=== PATIENT | female | born 1960 | race Caucasian/White ===

== ENCOUNTER 2020-07-22 09:21 | Inpatient (IN) ==
[2020-07-22] MEDS ORDERED: TUSSIONEX PENNKINETIC SUSP PO PRN (11:05)
[2020-07-22] MEDS ORDERED: NS 1/2 1000 ML IV 1,000 ML IV SCH (11:05)
[2020-07-22 11:32] LABS: ABG BASE EXCESS 3.2 mmol/L (-2.0-2.0); ABG HCO3 26.9 mmol/L (22-26)
--- NOTE | 2020-07-22 11:39 | RAD ---
HISTORYPNEUMONIA, COVIDSTUDYCHEST x-ray, 1 VIEWCOMPARISONNoneFINDINGSProminent bilateral lung infiltrates are seen, right greater than left. Findings are consistent with COVID-19 pneumonia. Heart is probably normal in size. No pneumothorax or pleural effusion is seen.IMPRESSIONLikely prominent bilateral pneumonia that could be from COVID-19 infection.Electronically signed by: Jamaal Hutchison (Jul 22, 2020 11:36:59)
[2020-07-22 12:22] LABS: BASOPHILS % (AUTO) 0.1 % (0.2-1.0); HEMATOCRIT 36.6 % (36.0-47.0); HEMOGLOBIN 12.5 g/dL (12.0-16.0); LYMPHOCYTES # (AUTO) 0.7 X10^3/uL (1.3-2.9); LYMPHOCYTES % (AUTO) 9.8 % (21.0-51.0); MEAN CORPUSCULAR HEMOGLOBIN 32.4 pg (27.0-34.0); MEAN CORPUSCULAR HGB CONC 34.1 g/dL (33.0-35.0); MEAN CORPUSCULAR VOLUME 94.8 fL (80.0-100.0); MEAN PLATELET VOLUME 7.1 fL (7.4-11.0); MONOCYTES # (AUTO) 0.3 x10^3/uL (0.3-0.8); MONOCYTES % (AUTO) 4.9 % (0.0-13.0); NEUTROPHILS # (AUTO) 5.7 x10^3/uL (2.2-4.8); NEUTROPHILS % (AUTO) 85.2 % (42.0-75.0); PLATELET COUNT 184 X10^3/uL (150.0-450.0); RED BLOOD COUNT 3.86 X10^6/uL (3.5-5.4); RED CELL DISTRIBUTION WIDTH 12.6 % (11.6-16.5); WHITE BLOOD COUNT 6.7 X10^3/uL (3.6-10.0)
[2020-07-22] MEDS ORDERED: NS 1/2 1000 ML IV 1,000 ML IV ONE (12:22)
[2020-07-22] MEDS ORDERED: REMDESIVIR 200 MG in NS 250 ML IV 250 ML IV NR (12:22)
[2020-07-22] MEDS: LEVAQUIN PREMIX IV 500 MG 500 MG/100 ML BAG IV SCH (12:26)
[2020-07-22] MEDS: VSL#3 PO SCH (12:27)
[2020-07-22] MEDS: ROBITUSSIN DM PO SCH ×4 (12:27→21:05)
[2020-07-22] MEDS: TYLENOL 325 MG TAB PO PRN (12:28)
[2020-07-22] MEDS: TESSALON PERLES PO SCH ×3 (12:28→21:05)
[2020-07-22 12:42] LABS: ALANINE AMINOTRANSFERASE 79 Units/L (12-78); ALBUMIN 2.7 g/dL (3.4-5.0); ALKALINE PHOSPHATASE 78 Units/L (46-116); ASPARTATE AMINO TRANSFERASE 54 Units/L (15-37); BLOOD UREA NITROGEN 8 mg/dL (7-18); CALCIUM 8.6 mg/dL (8.5-10.1); CHLORIDE 95 mmol/L (98-107); CKMB % 0.5 % (<4); COR CA(FOR HYPOALB) 9.6 mg/dL (8.5-10.1); COR NA(FOR HYPERGLY) 131 mmol/L (136-145); CREATINE KINASE 330 Units/L (26-192); CREATINE KINASE MB 1.6 ng/mL (0-4.0); SODIUM 129 mmol/L (136-145); TOTAL PROTEIN 6.5 g/dL (6.4-8.2); TROPONIN I 0.04 ng/mL (0-1.5); eGFR NON BLACK RACES > 60 (>60)
[2020-07-22 12:47] LABS: CARBON DIOXIDE 27.8 mmol/L (21-32)
[2020-07-22] MEDS ORDERED: K-DUR TAB 20 MEQ PO PRN (12:53)
[2020-07-22] MEDS ORDERED: MAGNESIUM SULFATE 1 GRAM/100 mL PREMIX 1 GM/100 ML BAG IV PRN (12:53)
[2020-07-22] MEDS ORDERED: POTASSIUM CHL 60 MEQ/NS 0.45% 500 ML IV PRN (12:53)
[2020-07-22] MEDS ORDERED: POTASSIUM CHLORIDE LIQ 20 MEQ UDC PO PRN (12:53)
[2020-07-22] MEDS ORDERED: MICRO K EXTEN CAP 10 MEQ PO PRN (12:53)
[2020-07-22] MEDS ORDERED: POTASSIUM CHL 40 MEQ/NS 0.45% 500 ML IV PRN (12:53)
[2020-07-22] MEDS ORDERED: KLOR-CON PO PRN (12:53)
[2020-07-22] MEDS ORDERED: K-DUR TAB 20 MEQ PO ONE (13:17)
[2020-07-22] MEDS: LOVENOX INJ 80 MG SYR SC SCH ×2 (13:22→21:05)
[2020-07-22] MEDS: PROTONIX INJ 40 MG VIAL IVP SCH ×2 (13:22→21:05)
[2020-07-22] MEDS ORDERED: NS 100 ML IV 100 ML IV ONE (13:23)
[2020-07-22] MEDS: SOLU-Medrol 40 MG VIAL IVP SCH ×2 (13:28→21:05)
[2020-07-22] MEDS: PULMICORT NEB TX 0.5 MG NEB SCH ×2 (13:39→21:46)
[2020-07-22] MEDS: DUONEB 0.5 MG/3 MG (3 mL) NEB SCH ×4 (13:39→21:46)
[2020-07-22 14:00] LABS: ABG ALLEN TEST POS; ABG BASE EXCESS 3.7 mmol/L (-2.0-2.0); ABG HCO3 27.7 mmol/L (22-26)
[2020-07-22] MEDS: PEPCID 20 MG IV PREMIX* 20 MG/50 ML BAG IV SCH ×2 (14:10→21:05)
--- NOTE | 2020-07-22 14:51 | RAD ---
HISTORYCentral lineSTUDYCHEST, 1 [id number]/17/2020FINDINGSRight IJ central venous catheter terminates in the region of the cavoatrial junction. There is no pneumothorax. No significant interval change an bilateral airspace disease. No sizable pleural effusion.IMPRESSIONSatisfactory position of right IJ central venous catheter without pneumothorax or other change in cardiopulmonary findings.Electronically signed by: Johnny Fulton (Jul 22, 2020 14:49:29)
--- NOTE | 2020-07-22 15:26 | CT ---
HISTORYELEVATED D-DIMER, COVID 19 positiveSTUDYCTA CHEST with IV contrastCOMPARISONX-ray 07/22/2020TECHNIQUEMultiple axial images of the chest were obtained from the thoracic inlet to the upper abdomen after the administration of IV contrast. 75 cc Omnipaque 350 IV contrast. 3D reconstructions utilizing axial MIPS imaging was performed and reviewed. Dose reduction techniques including Automated Exposure Control (AEC) and adjustment of mA and kV were utilized.FINDINGSProminent diffuse interstitial and ground-glass infiltrates are seen. Findings are concerning for prominent COVID-19 pneumonia. Mild alveolar consolidation is seen in the lower lungs associated with these infiltrates.There may be a degree of pulmonary edema contributing to the lung densities as there is mild cardiomegaly and pulmonary venous congestion with tiny pleural effusions. Moderate-sized hiatus hernia is seen. Mediastinal and hilar lymphadenopathy is probably reactive, but a few of the lymph nodes measure greater than 1 cm in the short axis in the sub carinal and precarinal regions.No pericardial effusion. Thoracic aorta is normal in size without evidence of dissection. No pulmonary embolus is seen.IMPRESSIONLikely prominent bilateral pneumonia may be from COVID-19 infection.Pulmonary edema may contribute to some of the lung densities as there is probable mild CHF with tiny pleural effusions.Probably reactive mediastinal and hilar lymphadenopathy. Consider follow-up CT in a few months time to assure resolution.Electronically signed by: Jamaal Hutchison (Jul 22, 2020 15:25:11)
[2020-07-22] MEDS ORDERED: LASIX IVP ONE (15:43)
[2020-07-22] MEDS ORDERED: ATIVAN INJ 2 MG VIAL ONE (15:47)
[2020-07-22] MEDS ORDERED: LASIX ONE (15:47)
[2020-07-22] MEDS: ATIVAN INJ 2 MG VIAL IVP PRN (15:48)
[2020-07-22] MEDS: NS 1000 ML 1,000 ML IV SCH (15:50)
[2020-07-23] MEDS: ATIVAN INJ 2 MG VIAL IVP PRN ×3 (00:15→22:00)
[2020-07-23 05:01] LABS: ABG ALLEN TEST POS; ABG BASE EXCESS 3.3 mmol/L (-2.0-2.0); ABG HCO3 29.5 mmol/L (22-26)
[2020-07-23 05:26] LABS: BASOPHILS % (AUTO) 0.2 % (0.2-1.0); HEMATOCRIT 39.1 % (36.0-47.0); HEMOGLOBIN 13.4 g/dL (12.0-16.0); LYMPHOCYTES # (AUTO) 0.7 X10^3/uL (1.3-2.9); LYMPHOCYTES % (AUTO) 9.3 % (21.0-51.0); MEAN CORPUSCULAR HEMOGLOBIN 32.6 pg (27.0-34.0); MEAN CORPUSCULAR HGB CONC 34.2 g/dL (33.0-35.0); MEAN CORPUSCULAR VOLUME 95.2 fL (80.0-100.0); MEAN PLATELET VOLUME 7.4 fL (7.4-11.0); MONOCYTES # (AUTO) 0.3 x10^3/uL (0.3-0.8); MONOCYTES % (AUTO) 3.7 % (0.0-13.0); NEUTROPHILS # (AUTO) 6.5 x10^3/uL (2.2-4.8); NEUTROPHILS % (AUTO) 86.8 % (42.0-75.0); PLATELET COUNT 176 X10^3/uL (150.0-450.0); RED BLOOD COUNT 4.11 X10^6/uL (3.5-5.4); RED CELL DISTRIBUTION WIDTH 12.7 % (11.6-16.5); WHITE BLOOD COUNT 7.5 X10^3/uL (3.6-10.0)
[2020-07-23 05:44] LABS: ALBUMIN 2.6 g/dL (3.4-5.0); ALKALINE PHOSPHATASE 87 Units/L (46-116); SODIUM 134 mmol/L (136-145); eGFR NON BLACK RACES > 60 (>60)
[2020-07-23] MEDS: SOLU-Medrol 40 MG VIAL IVP SCH ×3 (05:45→21:01)
[2020-07-23] MEDS: NS 1000 ML 1,000 ML IV SCH ×3 (05:45→20:58)
[2020-07-23] MEDS: TESSALON PERLES PO SCH ×3 (05:45→21:01)
[2020-07-23 06:33] LABS: ALANINE AMINOTRANSFERASE 79 Units/L (12-78); ASPARTATE AMINO TRANSFERASE 63 Units/L (15-37); BLOOD UREA NITROGEN 12 mg/dL (7-18); CALCIUM 8.8 mg/dL (8.5-10.1); CARBON DIOXIDE 23.5 mmol/L (21-32); CHLORIDE 97 mmol/L (98-107); COR CA(FOR HYPOALB) 9.9 mg/dL (8.5-10.1); COR NA(FOR HYPERGLY) 138 mmol/L (136-145); CREATININE 0.69 mg/dL (0.55-1.02); TOTAL PROTEIN 6.5 g/dL (6.4-8.2)
--- NOTE | 2020-07-23 06:38 | RAD ---
HISTORYCOVID, SOBSTUDYCHEST, 1 [id number]/17/2020.TECHNIQUEAP view of the chestFINDINGSRight IJ central line in stable position. The cardiac and mediastinal contours appear normal. Stable bilateral airspace and interstitial opacities. No definite pleural effusion or pneumothorax.IMPRESSIONNo significant change.Electronically signed by: Bipin Moore (Jul 23, 2020 06:36:33)
[2020-07-23] MEDS: REMDESIVIR 100 MG in NS 250 ML IV 250 ML IV SCH (09:27)
[2020-07-23] MEDS: DUONEB 0.5 MG/3 MG (3 mL) NEB SCH ×4 (09:30→21:39)
[2020-07-23] MEDS: PULMICORT NEB TX 0.5 MG NEB SCH ×2 (09:30→21:39)
[2020-07-23] MEDS: ROBITUSSIN DM PO SCH ×4 (09:56→21:01)
[2020-07-23] MEDS: LOVENOX INJ 80 MG SYR SC SCH (09:56)
[2020-07-23] MEDS: PROTONIX INJ 40 MG VIAL IVP SCH ×2 (09:57→21:01)
[2020-07-23] MEDS: PEPCID 20 MG IV PREMIX* 20 MG/50 ML BAG IV SCH ×2 (10:37→21:00)
[2020-07-23] MEDS: LEVAQUIN PREMIX IV 500 MG 500 MG/100 ML BAG IV SCH (11:24)
[2020-07-23] MEDS: VSL#3 PO SCH (11:54)
--- NOTE | 2020-07-23 12:34 | DR.H&P ---
H&P - History & Physical for Day of: H&P Date: 07/22/20 - Chief Complaint Chief Complaint: COUGH, SOB, FEVER, WEAKNESS, COVID POSITIVE - History of Present Illness History of Present Illness: IS A 60 YEAR OLD PATIENT OF OURS. SHE PRESE NTED TO THE OFFICE WITH REPORTS OF COUGH, SHORTNESS OF BREATH, FEVER, AND WEAKNESS. HER SYMPTOMS STARTED ABOUT A WEEK AGO. SHE WAS TESTED FOR COVID-19 AT THAT TIME AND WAS NOTED TO BE POSITIVE. SHE WAS STARTED ON AZITHROMYCIN 500MG PO BID, TESSALON PERLES 100MG PO TID, PLAQUENIL 200MG PO BID X 5 DAYS, A MEDROL DOSEPAK ON 07/15/20. SHE REPORTS PROGRESSIVE WORSENING OF SYMPTOMS DESPITE COMPLIANCE WITH HER MEDICATIONS. AUSCULTATION OF LUNG JACOBO REVEALED SCATTERED WHEEZING. SHE WAS ADMITTED TO THE HOSPITAL FOR FURTHER EVALUATION AND TREATMENT. ON ARRIVAL TO THE HOSPTIAL, VITALS WERE 101.5-89-23-73%RA-141/61. LABS WERE OBTAINED. ABNORMAL LAB VALUES INCLUDE THE FOLLOWING: D-DIMER 1.22, SODIUM 129, CHLORIDE 95, GLUCOSE 174, FERRITIN 462, AST 54, ALT 79, CREATINE KINASE 330, CRP 102.50, BNP 129, ALBUMIN 2.7. COVID-19 POSITIVE. AN ABG WAS OBTAINED AND REVEALED: PH 7.470, PC02 37, P02 31, HC03 26.9, 02 SAT 65, BASE EXCESS 3.2, FI02 21.0. BLOOD AND SPUTUM CULTURES WERE SET UP. A CHEST XRAY WAS OBTAINED AND REVEALED: Likely prominent bilateral pneumonia that could be from COVID-19 infection. A CHEST CTA WAS OBTAINED AND REVEALED: Likely prominent bilateral pneumonia may be from COVID-19 infection. Pulmonary edema may contribute to some of the lung densities as there is probable mild CHF with tiny pleural effusions. Probably reactive mediastinal and hilar lymphadenopathy. EKG REVEALED: SINUS RHYTHM WITH HR 82. SHE WAS PLACED ON HEATED HIGH FLOW OXYGEN. HER ABG WAS REPEATED AFTER BEING ON OXYGEN FOR TWO HOURS. 13:55 ABG REVEALED: PH 7.460, PC02 39, P02 52, HC03 27.7, 02 SAT 88, BASE EXCESS 3.7, FI02 89.0. SHE WAS STARTED ON NS AT 75 ML/HR, REMDESIVIR 100MG IV DAILY, LEVAQUIN 500MG IV DAILY, SOLU-MEDROL 80MG IV Q8H, ATIVAN 0.5MGIV Q8H PRN, ROBITUSSIN DM 10 ML PO QID, PEPCID 20MG IV BID, PROTONIX 40MG IV BID, LOVENOX 80MG SC BID, DUONEBS QID, PULMICORT NEBS BID, TUSSIONEX 5ML PO Q12H PRN, AND HER HOME MEDICATIONS WERE RESUMED. WE PLAN TO FOLLOW UP WITH AM LABS, ABG, CHEST XRAY, AND CONTINUE TO MONITOR. - Past Medical History Past Medical History: Diabetes, GERD Additional Medical History: HERNIA - Past Surgical History Surgical History: Appendectomy, Cholecystectomy, Hysterectomy, Other - Family History Family Medical History: Diabetes Mellitus, Cancer, PA, Hypertension - Social History Does patient currently use any type of tobacco product: No Have you used tobacco products in the last 12 months: No Type of Tobacco Use: None Does any household member use tobacco: No Alcohol Use: None Drug Use: None - Medications Home Medications: codeine Allergy (Verified 07/22/20 11:49) meperidine [From Demerol] Allergy (Verified 07/22/20 11:49) Tetanus Vaccines and Toxoid Allergy (Verified 07/22/20 11:49) CONTINUE taking the following medications albuterol sulfate [Ventolin HFA] 90 mcg INHALATION TID 07/22/20 [History] alprazolam [Xanax] 0.25 mg PO DAILY PRN 07/22/20 [History] azithromycin 500 mg PO DAILY 07/22/20 [History] benzonatate 100 mg PO TID PRN 07/22/20 [History] ciprofloxacin-dexamethasone 4 drp OTIC (EAR) BID 07/22/20 [History] hydroxychloroquine 200 mg PO BID 07/22/20 [History] levothyroxine [Synthroid] 75 mcg PO DAILY 07/22/20 [History] methylprednisolone 4 mg PO . DIRECTED 07/22/20 [History] - Review of Systems Constitutional: Fever, Chills, Weakness Eyes: No Symptoms Reported ENT: No Symptoms Reported Respiratory: No Symptoms Reported, See HPI, Cough, Shortness of Breath, SOB with Excertion, Wheezing Cardiovascular: No Symptoms Reported Gastrointestinal: No Symptoms Reported Genitourinary: No Symptoms Reported Musculoskeletal: No Symptoms Reported Skin: No Symptoms Reported Neurological: Weakness - Physical Exam Vital Signs: Temperature 97.9 F Pulse Rate [Right Brachial] 77 Pulse Rate 76 Respiratory Rate 26 Blood Pressure [Right Arm] 169/76 O2 Sat by Pulse Oximetry 90 Oriented: Normal Eyes: Normal Ear: Normal Nose: Normal Throat: Normal Respiratory: Wheezes Throughout Cardiovascular: Normal : Normal Auscultation: Bowel Sounds: Normal Palpation: Normal Tenderness: Normal Skin: Normal Musculoskeletal: Normal Psychiatric: Normal Mood Description: Anxious Affect: Anxious Speech Pattern: Clear - Assessment/Plan (1) Pneumonia due to 2019 novel coronavirus Status: Acute Plan: NS AT 75 ML/HR, REMDESIVIR 100MG IV DAILY, LEVAQUIN 500MG IV DAILY, SOLU- MEDROL 80MG IV Q8H, ATIVAN 0.5MGIV Q8H PRN, ROBITUSSIN DM 10 ML PO QID, PEPCID 20MG IV BID, PROTONIX 40MG IV BID, LOVENOX 80MG SC BID, DUONEBS QID, PULMICORT NEBS BID, TUSSIONEX 5ML PO Q12H PRN, AND HER HOME MEDICATIONS WERE RESUMED (2) Hypoxia Status: Acute - Allergies Allergies/Adverse Reactions: Allergies Allergy/AdvReac Type Severity Reaction Status Date / Time codeine Allergy Verified 07/22/20 11:49 meperidine [From Demerol] Allergy Verified 07/22/20 11:49 Tetanus Vaccines and Toxoid Allergy Verified 07/22/20 11:49
--- NOTE | 2020-07-23 12:54 | DR.UPDATE ---
H&P Update History and Physical Update: History and Physical reviewed and patient examined. Changes noted: NO Yes with the following:will place central line H&P Reviewed: Yes Patient was examined?: Yes Procedures (ALL) - Central Line Placement PCM.CLCO: written consent Time out performed: Yes Patient placed pm monitor/pulse ox: Yes MD prep: mask, gown, gloves, other Centrial line prep: chlorhexidine scrub, sterile drapes applied Local anesthsia used: lidocane 1% Ultrasound used for placement: Yes (right ij id'd via u/s and cannulation visualized) Central line lumen ininserted: triple Post procedure: sutured in place, good blood return, all ports aspirated, flushed,capped, sterile dressing applied Post procedure xray: tip oc catheter in good position, no pneumothorax seen Patient tolerated procedure: Yes Complications: none
[2020-07-23] MEDS: ZOFRAN INJ 4 MG VIAL IVP PRN (17:32)
[2020-07-23] MEDS ORDERED: LANOXIN INJ IVP SCH (18:00)
[2020-07-23 19:34] VITALS: BMI 33.6
[2020-07-23] MEDS: LOVENOX INJ 30 MG SYR SC SCH (20:59)
[2020-07-24 05:36] LABS: ALANINE AMINOTRANSFERASE 63 Units/L (12-78); ALBUMIN 2.4 g/dL (3.4-5.0); ALKALINE PHOSPHATASE 74 Units/L (46-116); ASPARTATE AMINO TRANSFERASE 45 Units/L (15-37); BLOOD UREA NITROGEN 16 mg/dL (7-18); CALCIUM 8.9 mg/dL (8.5-10.1); CARBON DIOXIDE 29.7 mmol/L (21-32); CHLORIDE 103 mmol/L (98-107); COR CA(FOR HYPOALB) 10.2 mg/dL (8.5-10.1); COR NA(FOR HYPERGLY) 142 mmol/L (136-145); CREATININE 0.66 mg/dL (0.55-1.02); SODIUM 139 mmol/L (136-145); TOTAL PROTEIN 5.9 g/dL (6.4-8.2); eGFR NON BLACK RACES > 60 (>60)
[2020-07-24 06:01] LABS: BASOPHILS % (AUTO) 0.1 % (0.2-1.0); HEMATOCRIT 35.6 % (36.0-47.0); HEMOGLOBIN 11.8 g/dL (12.0-16.0); LYMPHOCYTES % (AUTO) 8.3 % (21.0-51.0); MEAN CORPUSCULAR HEMOGLOBIN 32.5 pg (27.0-34.0); MEAN CORPUSCULAR HGB CONC 33.2 g/dL (33.0-35.0); MEAN CORPUSCULAR VOLUME 97.8 fL (80.0-100.0); MEAN PLATELET VOLUME 7.8 fL (7.4-11.0); MONOCYTES # (AUTO) 0.8 x10^3/uL (0.3-0.8); MONOCYTES % (AUTO) 6.2 % (0.0-13.0); NEUTROPHILS # (AUTO) 10.8 x10^3/uL (2.2-4.8); NEUTROPHILS % (AUTO) 85.4 % (42.0-75.0); PLATELET COUNT 234 X10^3/uL (150.0-450.0); RED BLOOD COUNT 3.64 X10^6/uL (3.5-5.4); RED CELL DISTRIBUTION WIDTH 12.7 % (11.6-16.5); WHITE BLOOD COUNT 12.6 X10^3/uL (3.6-10.0)
--- NOTE | 2020-07-24 06:16 | RAD ---
HISTORYSOB, covidSTUDYAP [id number]/18/2020FINDINGSHeart size is probably unchanged although cardiac margins are partly obscured by extensive adjacent airspace involvement in each lung. Extent and distribution of disease in the right lung is similar. There is increasing opacification at the left base, however. Stable position of right IJ line extending to the right atrium.IMPRESSIONPersistent bilateral pulmonary infiltrates, increasing in the left lower lobe since 1 day prior.Electronically signed by: JOSE CUEVA (Jul 24, 2020 06:14:57)
[2020-07-24 06:19] LABS: ABG BASE EXCESS 5.8 mmol/L (-2.0-2.0)
[2020-07-24 06:21] LABS: ABG ALLEN TEST POS; ABG HCO3 32.1 mmol/L (22-26)
[2020-07-24] MEDS: SOLU-Medrol 40 MG VIAL IVP SCH ×3 (06:30→21:03)
[2020-07-24] MEDS: TESSALON PERLES PO SCH ×3 (06:30→21:00)
[2020-07-24] MEDS: ATIVAN INJ 2 MG VIAL IVP PRN ×2 (07:18→14:41)
[2020-07-24] MEDS: LOVENOX INJ 30 MG SYR SC SCH (08:23)
[2020-07-24] MEDS: PROTONIX INJ 40 MG VIAL IVP SCH ×2 (08:23→21:03)
[2020-07-24] MEDS: PEPCID 20 MG IV PREMIX* 20 MG/50 ML BAG IV SCH ×2 (08:25→21:02)
[2020-07-24] MEDS: ROBITUSSIN DM PO SCH ×4 (08:28→20:59)
[2020-07-24] MEDS: VSL#3 PO SCH (08:29)
[2020-07-24] MEDS: REMDESIVIR 100 MG in NS 250 ML IV 250 ML IV SCH (08:43)
[2020-07-24] MEDS: DUONEB 0.5 MG/3 MG (3 mL) NEB SCH ×4 (09:26→21:42)
[2020-07-24] MEDS: PULMICORT NEB TX 0.5 MG NEB SCH ×2 (09:26→21:42)
[2020-07-24] MEDS: LEVAQUIN PREMIX IV 500 MG 500 MG/100 ML BAG IV SCH (09:52)
[2020-07-24] MEDS: NS 1000 ML 1,000 ML IV SCH ×2 (09:53→13:40)
[2020-07-24] MEDS: ZITHROMAX INJ 500 MG VIAL 500 MG in NS 250 ML IV 250 ML IV SCH (14:12)
[2020-07-24] MEDS ORDERED: ATIVAN INJ 2 MG VIAL ONE (14:38)
[2020-07-24] MEDS: ZOSYN VIAL 4.5 GRAMS 4.5 G in NS 100 ML IV + SPIKE MINIBAG* 100 ML IV SCH ×2 (16:30→21:02)
[2020-07-24] MEDS: ZOFRAN INJ 4 MG VIAL IVP PRN (18:00)
[2020-07-24] MEDS ORDERED: PHENERGAN INJ 25 MG IM ONE (18:22)
[2020-07-24] MEDS ORDERED: REGLAN INJ 10 MG VIAL ONE (18:25)
[2020-07-24] MEDS ORDERED: ZOFRAN INJ 4 MG VIAL ONE (18:25)
[2020-07-24] MEDS ORDERED: REGLAN INJ 10 MG VIAL IVP ONE (18:28)
[2020-07-24] MEDS ORDERED: ZOFRAN INJ 4 MG VIAL IVP PRN (18:29)
[2020-07-24 18:35] LABS: ABG BASE EXCESS 3.1 mmol/L (-2.0-2.0)
[2020-07-24 18:36] LABS: ABG ALLEN TEST POS; ABG HCO3 31.3 mmol/L (22-26)
[2020-07-24] MEDS ORDERED: KETALAR ONE (18:40)
[2020-07-24] MEDS ORDERED: VERSED ONE (18:40)
[2020-07-24] MEDS ORDERED: DIPRIVAN VIAL ONE (18:40)
[2020-07-24] MEDS ORDERED: QUELICIN (OR ANECTINE) ONE (18:40)
[2020-07-24] MEDS ORDERED: NS 500 ML IV 500 ML IV ONE (18:44)
[2020-07-24] MEDS ORDERED: LASIX IVP ONE ×2 (18:51→18:52)
[2020-07-24] MEDS ORDERED: DIPRIVAN PREMIX 1 GRAM IV 1,000 MG/100 ML VIAL ONE (19:05)
[2020-07-24] MEDS: DIPRIVAN PREMIX 1 GRAM IV 1,000 MG/100 ML VIAL IV PRN (19:11)
--- NOTE | 2020-07-24 19:57 | RAD ---
HISTORYverify placement ET tubeSTUDYCHEST, 1 [id number]/19/2020, the study from 2 hours agoFINDINGSThe endotracheal tube is anatomic in position in the trachea.Right jugular central venous catheter is in the expected location of the superior cavoatrial junction. EKG leads are noted.Diffuse bilateral opacity in the lungs is not changed. This is compatible with pneumonia as seen on the chest CT 07/22/2020. No pneumothorax or pleural effusion.Heart size is normal.Bones are unremarkable.IMPRESSION1. Uncomplicated intubationElectronically signed by: Harsh Hidalgo (Jul 24, 2020 19:55:48)
--- NOTE | 2020-07-24 20:42 | DR.UPDATE ---
H&P Update History and Physical Update: History and Physical reviewed and patient examined. Changes noted: NO Yes with the following:will intubate and place arterial line for monitoring/frequent arterial sampling H&P Reviewed: Yes Patient was examined?: Yes Procedures (ALL) - Arterial Line Consent obtained: verbal consent Time out performed: Yes Size(gauge): 20 Technique used: guided wire technique Post-procedure: dry sterile dressing placed Patient tolerated procedure: Yes Site: Left, radial - Intubation Time out performed: Yes Sedative: ketamine (50mg, and propofol 50mg) paralytic: succinylchline (100mg, then vecuronium 10mg after return of spontaneous respirations) Laryngoscope: fiber optic video scope (glidescope 3) ET tube size: 7.5 Tube secured depth: 21 Tube secured location: teeth Tube placement confirmation: visualized tube passing through cords, equal breath sounds bilaterally, no breath sounds over epigastrium, comfirmation by capnometer Patient tolerated procedure: Yes Intubation complications: none
[2020-07-24 21:19] LABS: BILIRUBIN,URINE NEGATIVE (NEGATIVE); BLOOD/HEMOGLOBIN,URINE NEGATIVE (NEGATIVE); GLUCOSE, URINE 3+ (NEGATIVE); KETONES,URINE NEGATIVE (NEGATIVE); LEUKOCYTE ESTERASE ,URINE NEGATIVE (NEGATIVE); NITRITES,URINE NEGATIVE (NEGATIVE); PROTEIN,URINE 2+ (NEGATIVE); UROBILINOGEN,URINE NORMAL (NORMAL)
[2020-07-24 21:40] LABS: APPEARANCE,URINE CLEAR (CLEAR); COLOR,URINE YELLOW (YELLOW)
[2020-07-24 21:41] LABS: BACTERIA,URINE NEGATIVE /HPF (NEGATIVE); MUCUS,URINE FEW /HPF (NEGATIVE); RBC,URINE 0-2 /HPF (0-3); SQUAMOUS EPITHELIAL CELL,UR RARE /HPF (NEGATIVE)
[2020-07-24 21:53] LABS: ABG BASE EXCESS 10.2 mmol/L (-2.0-2.0); ABG HCO3 34.3 mmol/L (22-26)
[2020-07-24] MEDS: LOVENOX INJ 40 MG SYR SC SCH (22:00)
[2020-07-24] MEDS: LACRI-LUBE S.O.P. AFFEYE SCH (22:16)
[2020-07-25] MEDS ORDERED: ARTIFICIAL TEARS DROPS ONE (00:02)
[2020-07-25] MEDS: NS 1000 ML 1,000 ML IV SCH ×3 (02:03→13:50)
[2020-07-25] MEDS: LACRI-LUBE S.O.P. AFFEYE SCH ×3 (02:04→20:52)
[2020-07-25 02:54] LABS: BASOPHILS % (AUTO) 0.2 % (0.2-1.0); HEMATOCRIT 33.5 % (36.0-47.0); HEMOGLOBIN 11.5 g/dL (12.0-16.0); LYMPHOCYTES # (AUTO) 0.7 X10^3/uL (1.3-2.9); LYMPHOCYTES % (AUTO) 4.7 % (21.0-51.0); MEAN CORPUSCULAR HEMOGLOBIN 33.2 pg (27.0-34.0); MEAN CORPUSCULAR HGB CONC 34.4 g/dL (33.0-35.0); MEAN CORPUSCULAR VOLUME 96.6 fL (80.0-100.0); MEAN PLATELET VOLUME 6.9 fL (7.4-11.0); MONOCYTES % (AUTO) 6.1 % (0.0-13.0); PLATELET COUNT 248 X10^3/uL (150.0-450.0); RED BLOOD COUNT 3.47 X10^6/uL (3.5-5.4); RED CELL DISTRIBUTION WIDTH 13.2 % (11.6-16.5); WHITE BLOOD COUNT 15.7 X10^3/uL (3.6-10.0)
[2020-07-25 03:01] LABS: ALANINE AMINOTRANSFERASE 55 Units/L (12-78); ALBUMIN 2.3 g/dL (3.4-5.0); ALKALINE PHOSPHATASE 80 Units/L (46-116); ASPARTATE AMINO TRANSFERASE 43 Units/L (15-37); BLOOD UREA NITROGEN 21 mg/dL (7-18); CALCIUM 8.4 mg/dL (8.5-10.1); CHLORIDE 102 mmol/L (98-107); COR CA(FOR HYPOALB) 9.8 mg/dL (8.5-10.1); COR NA(FOR HYPERGLY) 145 mmol/L (136-145); CREATININE 0.68 mg/dL (0.55-1.02); SODIUM 142 mmol/L (136-145); TOTAL PROTEIN 5.6 g/dL (6.4-8.2); eGFR NON BLACK RACES > 60 (>60)
--- NOTE | 2020-07-25 05:47 | RAD ---
HISTORYSOBSTUDYCHEST, 1 [id number]/19/2020FINDINGSThe trachea is midline. The cardiac silhouette is stable. Improved aeration of the right upper lung zone. Diffuse, near confluent pulmonary opacity of the remainder of the lung whitman, similar to prior exam. ETT and right IJ CVC stable in position.. The bony thorax is unremarkable.IMPRESSIONImproved aeration of the right upper/middle lung zone.Electronically signed by: Valentina Casillas (Jul 25, 2020 05:46:13)
[2020-07-25] MEDS: ZOSYN VIAL 4.5 GRAMS 4.5 G in NS 100 ML IV + SPIKE MINIBAG* 100 ML IV SCH ×4 (06:02→21:01)
[2020-07-25] MEDS: TESSALON PERLES PO SCH (06:02)
[2020-07-25] MEDS: SOLU-Medrol 40 MG VIAL IVP SCH ×3 (06:02→21:00)
[2020-07-25 06:13] LABS: ABG BASE EXCESS 9.1 mmol/L (-2.0-2.0)
[2020-07-25 06:14] LABS: ABG HCO3 32.7 mmol/L (22-26)
[2020-07-25] MEDS: DIPRIVAN PREMIX 1 GRAM IV 1,000 MG/100 ML VIAL IV PRN ×3 (06:30→20:00)
[2020-07-25] MEDS: LOVENOX INJ 40 MG SYR SC SCH ×2 (08:52→20:50)
[2020-07-25] MEDS: PEPCID 20 MG IV PREMIX* 20 MG/50 ML BAG IV SCH ×2 (08:52→20:50)
[2020-07-25] MEDS: PROTONIX INJ 40 MG VIAL IVP SCH ×2 (08:53→20:51)
[2020-07-25] MEDS: ZITHROMAX INJ 500 MG VIAL 500 MG in NS 250 ML IV 250 ML IV SCH (08:53)
[2020-07-25] MEDS: VSL#3 PO SCH (08:53)
[2020-07-25] MEDS: ROBITUSSIN DM PO SCH (08:53)
[2020-07-25] MEDS: REMDESIVIR 100 MG in NS 250 ML IV 250 ML IV SCH (08:53)
[2020-07-25] MEDS ORDERED: DIPRIVAN PREMIX 1 GRAM IV 1,000 MG/100 ML VIAL ONE (09:14)
[2020-07-25] MEDS: DUONEB 0.5 MG/3 MG (3 mL) NEB SCH ×4 (09:58→20:30)
[2020-07-25] MEDS: PULMICORT NEB TX 0.5 MG NEB SCH ×2 (09:58→20:30)
[2020-07-25] MEDS: VERSED 100 MG in NS 100 ML IV 80 ML IV PRN (10:40)
[2020-07-25] MEDS: LASIX IVP SCH (16:50)
[2020-07-26] MEDS: DIPRIVAN PREMIX 1 GRAM IV 1,000 MG/100 ML VIAL IV PRN ×2 (01:27→06:54)
[2020-07-26 04:14] LABS: ABG BASE EXCESS 11.6 mmol/L (-2.0-2.0)
[2020-07-26] MEDS: NS 1000 ML 1,000 ML IV SCH ×2 (05:00→12:29)
[2020-07-26 05:57] LABS: ALANINE AMINOTRANSFERASE 56 Units/L (12-78); ALBUMIN 2.1 g/dL (3.4-5.0); ALKALINE PHOSPHATASE 72 Units/L (46-116); ASPARTATE AMINO TRANSFERASE 38 Units/L (15-37); BLOOD UREA NITROGEN 26 mg/dL (7-18); CALCIUM 8.4 mg/dL (8.5-10.1); CARBON DIOXIDE 29.6 mmol/L (21-32); CHLORIDE 106 mmol/L (98-107); COR CA(FOR HYPOALB) 9.9 mg/dL (8.5-10.1); COR NA(FOR HYPERGLY) 150 mmol/L (136-145); CREATININE 0.73 mg/dL (0.55-1.02); SODIUM 146 mmol/L (136-145); TOTAL PROTEIN 5.4 g/dL (6.4-8.2); eGFR NON BLACK RACES > 60 (>60)
[2020-07-26 06:07] LABS: BASOPHILS % (AUTO) 0.1 % (0.2-1.0); HEMATOCRIT 30.6 % (36.0-47.0); HEMOGLOBIN 10.8 g/dL (12.0-16.0); LYMPHOCYTES # (AUTO) 0.8 X10^3/uL (1.3-2.9); LYMPHOCYTES % (AUTO) 7.6 % (21.0-51.0); MEAN CORPUSCULAR HEMOGLOBIN 38.2 pg (27.0-34.0); MEAN CORPUSCULAR HGB CONC 35.3 g/dL (33.0-35.0); MEAN CORPUSCULAR VOLUME 108.2 fL (80.0-100.0); MEAN PLATELET VOLUME 7.7 fL (7.4-11.0); MONOCYTES # (AUTO) 0.8 x10^3/uL (0.3-0.8); MONOCYTES % (AUTO) 7.7 % (0.0-13.0); NEUTROPHILS # (AUTO) 8.7 x10^3/uL (2.2-4.8); NEUTROPHILS % (AUTO) 84.6 % (42.0-75.0); PLATELET COUNT 230 X10^3/uL (150.0-450.0); RED BLOOD COUNT 2.82 X10^6/uL (3.5-5.4); RED CELL DISTRIBUTION WIDTH 13.2 % (11.6-16.5); WHITE BLOOD COUNT 10.3 X10^3/uL (3.6-10.0)
[2020-07-26] MEDS: SOLU-Medrol 40 MG VIAL IVP SCH ×3 (06:27→21:09)
[2020-07-26] MEDS: ZOSYN VIAL 4.5 GRAMS 4.5 G in NS 100 ML IV + SPIKE MINIBAG* 100 ML IV SCH ×3 (06:27→21:09)
[2020-07-26 06:56] LABS: PLATELET MORPHOLOGY COMMENT NORMAL (NORMAL)
[2020-07-26] MEDS: OFIRMEV IV 1000 MG VIAL 1,000 MG/100 ML VIAL IV PRN ×2 (08:11→21:10)
[2020-07-26] MEDS ORDERED: K-DUR TAB 20 MEQ PO PRN (08:12)
[2020-07-26] MEDS ORDERED: POTASSIUM CHL 40 MEQ/NS 0.45% 500 ML IV PRN (08:12)
[2020-07-26] MEDS ORDERED: POTASSIUM CHL 60 MEQ/NS 0.45% 500 ML IV PRN (08:12)
[2020-07-26] MEDS ORDERED: KLOR-CON PO PRN (08:12)
[2020-07-26] MEDS ORDERED: POTASSIUM CHLORIDE LIQ 20 MEQ UDC PO PRN (08:12)
[2020-07-26] MEDS ORDERED: MICRO K EXTEN CAP 10 MEQ PO PRN (08:12)
--- NOTE | 2020-07-26 08:13 | RAD ---
HISTORYSOB, [id number], 1 [id number]/20/2020FINDINGSTracheostomy tube and right IJ catheter are unchanged. Study is mildl y rotated. Normal heart size. There is again seen multiple ground-glass radiopacities with some confl uent zones in the left perihilar region. The infiltrates appears less denser since prior study; bernard eloy it could be technical. There is no effusion or pneumothorax.IMPRESSIONBilateral ground-glass radi opacities left more than right with persistent some confluent zones in the left perihilar region. The infiltrates are less denser; however it could be technical.Electronically signed by: Chata De Leon (Cassidy 2019 08:11:57)
[2020-07-26] MEDS: ZITHROMAX INJ 500 MG VIAL 500 MG in NS 250 ML IV 250 ML IV SCH (09:00)
[2020-07-26] MEDS: REMDESIVIR 100 MG in NS 250 ML IV 250 ML IV SCH (09:00)
[2020-07-26] MEDS: PULMICORT NEB TX 0.5 MG NEB SCH ×2 (09:28→20:57)
[2020-07-26] MEDS: DUONEB 0.5 MG/3 MG (3 mL) NEB SCH ×4 (09:28→20:57)
[2020-07-26] MEDS: LASIX IVP SCH ×2 (09:40→16:14)
[2020-07-26] MEDS: LOVENOX INJ 40 MG SYR SC SCH ×2 (09:40→21:08)
[2020-07-26] MEDS: LACRI-LUBE S.O.P. AFFEYE SCH ×2 (09:40→21:08)
[2020-07-26] MEDS: PEPCID 20 MG IV PREMIX* 20 MG/50 ML BAG IV SCH ×2 (09:41→21:09)
[2020-07-26] MEDS: PROTONIX INJ 40 MG VIAL IVP SCH ×2 (09:42→21:09)
[2020-07-26] MEDS ORDERED: PHARMACY CONSULT - TPN XX SCH (10:00)
[2020-07-26] MEDS: VSL#3 PO SCH (10:08)
[2020-07-26] MEDS: VERSED 100 MG in NS 100 ML IV 80 ML IV PRN ×2 (10:09→20:01)
[2020-07-26] MEDS: MORPHINE SULFATE PCA 30 MG IVP PRN (10:34)
[2020-07-26] MEDS: DECADRON JET NEB (RESP USE) NEB SCH ×2 (10:37→20:57)
[2020-07-26] MEDS: MUCOMYST 20% 200 MG/ML NEB SCH ×2 (10:37→20:57)
--- NOTE | 2020-07-26 11:09 | PCM.PROG ---
Progress Note - Progress Note for Day of Date of Exam: 07/23/20 - Subjective Subjective: WAS ADMITTED FOR TREATMENT OF PNEUMONIA DUE TO COVID-19, RESPIRATORY DISTRESS, AND HYPOXIA. TODAY, SHE IS ALERT, LYING IN BED ON MORNING ROUNDS. SHE IS CURRENTLY UTILIZING THE BIPAP. SHE DENIES SIGNIFICANT IMPROVEMENT SINCE YESTERDAY. HER OXYGEN SATURATIONS ON THE BIPAP HAVE BEEN 90-95% ON THE BIPAP THIS MORNING. WHEN PATIENT IS NOT WEARING BIPAP OR HER SUPPLEMENTAL OXYGEN, HER OXYGEN SATURATIONS DROP TO THE 70s. ON EXAMINATION, HEART IS REGULAR IN RATE AND RHYTHM. BILATERAL LUNGS ARE NOTED WITH SCATTERED WHEEZING THROUGHOUT. ABDOMEN IS ROUND, SOFT, AND NON-TENDER WITH NORMAL BOWEL SOUNDS NOTED IN ALL QUADRANTS. HER VITALS THIS MORNING ARE: 98.0-77-25-95%BIPAP-160/77. LABS WERE OBTAINED. ABNORMAL LAB VALUES INCLUDE THE FOLLOWING: SODIUM 134, CHLORIDE 97, GLUCOSE 249, FERRITIN 528, AST 63, ALT 79, CRP 136.40, ALBUMIN 2.6. BLOOD AND SPUTUM CULTURES ARE PENDING. AN ABG WAS OBTAINED THIS MORNING AND REVEALED: PH 7.370, PC02 51, P02 70, HC03 29.5, 02 SAT 93, BASE EXCESS 3.3, FI02 100.0. A CHEST XRAY WAS OBTAINED AND REVEALED: Right IJ central line in stable position. The cardiac and mediastinal contours appear normal. Stable bilateral airspace and interstitial opacities. No definite pleural effusion or pneumothorax. SHE IS CURRENTLY RECEIVING NS AT 75 ML/HR, REMDESIVIR 100MG IV DAILY, LEVAQUIN 500MG IV DAILY, SOLU-MEDROL 80MG IV Q8H, ATIVAN 0.5MGIV Q8H PRN, ROBITUSSIN DM 10 ML PO QID, PEPCID 20MG IV BID, PROTONIX 40MG IV BID, LOVENOX 80MG SC BID, DUONEBS QID, PULMICORT NEBS BID, TUSSIONEX 5ML PO Q12H PRN, AND HER HOME MEDICATIONS WERE RESUMED. WE WILL OBTAIN AN ECHO. OTHERWISE, WE WILL CONTINUE WITH CURRENT PLAN OF CARE TODAY. WE WILL FOLLOW UP WITH AM LABS, CHEST XRAY, AND ABG AND CONTINUE TO MONITOR. - Past Medical Family Social History Past Med/Fam/Surg Hx: No changes since H&P Allergies: Allergies codeine Allergy (Verified 07/22/20 11:49) meperidine [From Demerol] Allergy (Verified 07/22/20 11:49) Tetanus Vaccines and Toxoid Allergy (Verified 07/22/20 11:49) - Review of Systems ROS: No change since H&P - Vital Signs and I&O's Vital Signs: Temperature 100.3 F Pulse Rate [Right Brachial] 53 Pulse Rate 51 Respiratory Rate 20 Blood Pressure [Right Arm] 141/65 Blood Pressure 160/70 O2 Sat by Pulse Oximetry 93 Intake and Output: Intake & Output 07/23/20 07/24/20 07/25/20 07/26/20 11:59 11:59 11:59 11:59 Intake Total 1986 / 1986 2668 / 2668 2586 / 2586 3233 / 3233 Output Total 2200 / 2200 900 / 900 3125 / 3125 2300 / 2300 Balance -213 / -213 1768 / 1768 -539 / -539 933 / 933 - Physical Exam Oriented: Normal Eyes: Normal Ear: Normal Nose: Normal Throat: Normal Respiratory: Generalized, Wheezes Cardiovascular: Normal : Normal Auscultation: Bowel Sounds: Normal Palpation: Normal Tenderness: Normal Skin: Normal Musculoskeletal: Normal Psychiatric: Normal Mood Description: Anxious Affect: Anxious Speech Pattern: Artificially Ventilated - Laboratory and Diagnostics Result Diagrams: 07/26/20 04:56 07/26/20 04:56 Labs: 07/24/20 22:37 Sputum - Endotracheal Wash Sputum Culture - Preliminary 07/24/20 22:37 Sputum - Endotracheal Wash - Final 07/22/20 11:53 Blood Blood Culture - Preliminary 07/22/20 12:02 Blood Blood Culture - Preliminary 07/22/20 12:18 Sputum - Expectorated Sputum Sputum Culture - Final 07/22/20 12:18 Sputum - Expectorated Sputum - Final Laboratory WBC 10.3 X10^3/uL (3.6-10.0) H 07/26/20 04:56 RBC 2.82 X10^6/uL (3.5-5.4) L 07/26/20 04:56 Hgb 10.8 g/dL (12.0-16.0) L 07/26/20 04:56 Hct 30.6 % (36.0-47.0) L 07/26/20 04:56 MCV 108.2 fL (80.0-100.0) H 07/26/20 04:56 MCH 38.2 pg (27.0-34.0) H 07/26/20 04:56 MCHC 35.3 g/dL (33.0-35.0) H 07/26/20 04:56 RDW 13.2 % (11.6-16.5) 07/26/20 04:56 Plt Count 230 X10^3/uL (150.0-450.0) 07/26/20 04:56 Plt Count Comment Adequate (ADEQUATE) 07/26/20 04:56 MPV 7.7 fL (7.4-11.0) 07/26/20 04:56 Neut % (Auto) 84.6 % (42.0-75.0) H 07/26/20 04:56 Lymph % (Auto) 7.6 % (21.0-51.0) L 07/26/20 04:56 [place] % (Auto) 7.7 % (0.0-13.0) 07/26/20 04:56 Eos % (Auto) 0.0 % (0.9-2.9) L 07/26/20 04:56 Baso % (Auto) 0.1 % (0.2-1.0) L 07/26/20 04:56 Neut # (Auto) 8.7 x10^3/uL (2.2-4.8) H 07/26/20 04:56 Lymph # (Auto) 0.8 X10^3/uL (1.3-2.9) L 07/26/20 04:56 [place] # (Auto) 0.8 x10^3/uL (0.3-0.8) 07/26/20 04:56 Eos # (Auto) 0.0 x10^3/uL (0.0-0.2) 07/26/20 04:56 Baso # (Auto) 0.0 X10^3/uL (0.0-0.1) 07/26/20 04:56 Absolute Nucleated RBC 0.0 /100WBC 07/26/20 04:56 Plt Morphology Comment Normal (NORMAL) 07/26/20 04:56 RBC Morphology Abnormal (NORMAL) A 07/26/20 04:56 Macrocytosis 1+ A 07/26/20 04:56 D-Dimer 1.22 ug/ml (0.0-0.57) H* 07/22/20 11:53 Sample Site Susana 07/26/20 04:09 ABG pH 7.550 (7.35-7.45) H 07/26/20 04:09 ABG pCO2 40.0 mmHg (35.0-45.0) 07/26/20 04:09 ABG pO2 69.0 mmHg (80.0-100.0) L 07/26/20 04:09 ABG HCO3 35.0 mmol/L (22-26) H* 07/26/20 04:09 ABG O2 Saturation 96.0 % (90-100) 07/26/20 04:09 ABG Base Excess 11.6 mmol/L (-2.0-2.0) H 07/26/20 04:09 Alex Test N/a 07/26/20 04:09 A-a Gradient 594.0 mmHg 07/26/20 04:09 FiO2 100.0 07/26/20 04:09 Blood Gas Comments Marie well ae 07/26/20 04:09 Sodium 146 mmol/L (136-145) H 07/26/20 04:56 Corrected Sodium 150 mmol/L (136-145) H 07/26/20 04:56 Potassium 2.9 mmol/L (3.5-5.1) L* 07/26/20 04:56 Chloride 106 mmol/L (98-107) 07/26/20 04:56 Carbon Dioxide 29.6 mmol/L (21-32) 07/26/20 04:56 BUN 26 mg/dL (7-18) H 07/26/20 04:56 Creatinine 0.73 mg/dL (0.55-1.02) 07/26/20 04:56 Est GFR (MDRD) Af Amer > 60 (>60) 07/26/20 04:56 Est GFR (MDRD) Non-Af > 60 (>60) 07/26/20 04:56 Glucose 281 mg/dL (65-99) H 07/26/20 04:56 Calcium 8.4 mg/dL (8.5-10.1) L 07/26/20 04:56 Corrected Calcium 9.9 mg/dL (8.5-10.1) 07/26/20 04:56 Magnesium 2.4 mg/dL (1.7-2.9) 07/26/20 04:56 Ferritin 472 ng/mL (8-252) H 07/26/20 04:56 Total Bilirubin 0.70 mg/dL (0.2-1.0) 07/26/20 04:56 AST 38 Units/L (15-37) H 07/26/20 04:56 ALT 56 Units/L (12-78) 07/26/20 04:56 Alkaline Phosphatase 72 Units/L (46-116) 07/26/20 04:56 Creatine Kinase 330 Units/L (26-192) H 07/22/20 11:53 CK-MB (CK-2) 1.6 ng/mL (0-4.0) 07/22/20 11:53 CK/CKMB % Calc 0.5 % (<4) 07/22/20 11:53 Troponin I 0.04 ng/mL (0-1.5) 07/22/20 11:53 C-Reactive Protein 90.00 mg/L (0-3.0) H 07/26/20 04:56 B-Natriuretic Peptide 129 pg/mL (0-79) H 07/22/20 11:53 Total Protein 5.4 g/dL (6.4-8.2) L 07/26/20 04:56 Albumin 2.1 g/dL (3.4-5.0) L 07/26/20 04:56 Globulin 3.3 g/dL (2.5-4.5) 07/26/20 04:56 Albumin/Globulin Ratio 0.6 Ratio (1.1-2.1) L 07/26/20 04:56 Prealbumin 13.5 mg/dL (18-35.7) L 07/26/20 04:56 Specimen Type Catherized urine 07/24/20 20:00 Urine Color Yellow (YELLOW) 07/24/20 20:00 Urine Appearance Clear (CLEAR) 07/24/20 20:00 Urine pH 6.0 (5.0 - 8.0) 07/24/20 20:00 Ur Specific [place] 1.020 (1.000-1.030) 07/24/20 20:00 Urine Protein 2+ (NEGATIVE) 07/24/20 20:00 Urine Glucose (UA) 3+ (NEGATIVE) 07/24/20 20:00 Urine Ketones Negative (NEGATIVE) 07/24/20 20:00 Urine Occult Blood Negative (NEGATIVE) 07/24/20 20:00 Urine Nitrite Negative (NEGATIVE) 07/24/20 20:00 Urine Bilirubin Negative (NEGATIVE) 07/24/20 20:00 Urine Urobilinogen Normal (NORMAL) 07/24/20 20:00 Ur Leukocyte Esterase Negative (NEGATIVE) 07/24/20 20:00 Urine RBC 0-2 /HPF (0-3) 07/24/20 20:00 Urine WBC 0-2 /HPF (0-5) 07/24/20 20:00 Ur Squamous Epith Cells Rare /HPF (NEGATIVE) 07/24/20 20:00 Urine Bacteria Negative /HPF (NEGATIVE) 07/24/20 20:00 Urine Mucus Few /HPF (NEGATIVE) 07/24/20 20:00 Ur Culture Indicated? No/not indicated 07/24/20 20:00 SARS CoV-2 RNA Rapid CARMEN Positive (NEGATIVE) A 07/22/20 12:18 Blood Type O POSITIVE 07/25/20 02:28 - Plan (1) Pneumonia due to 2019 novel coronavirus Status: Acute Plan: NS AT 75 ML/HR, REMDESIVIR 100MG IV DAILY, LEVAQUIN 500MG IV DAILY, SOLU- MEDROL 80MG IV Q8H, ATIVAN 0.5MGIV Q8H PRN, ROBITUSSIN DM 10 ML PO QID, PEPCID 20MG IV BID, PROTONIX 40MG IV BID, LOVENOX 80MG SC BID, DUONEBS QID, PULMICORT NEBS BID, TUSSIONEX 5ML PO Q12H PRN, AND HER HOME MEDICATIONS WERE RESUMED (2) Hypoxia Status: Acute
[2020-07-26] MEDS: PROCALAMINE 3 % 1,000 ML IV SCH (12:29)
[2020-07-26] MEDS: K-RIDER 10 MEQ/NS 100 ML 10 MEQ/100 ML BAG IV PRN ×5 (14:40→23:40)
[2020-07-27] MEDS: DIPRIVAN PREMIX 1 GRAM IV 1,000 MG/100 ML VIAL IV PRN ×2 (00:48→17:55)
[2020-07-27] MEDS: MORPHINE SULFATE PCA 30 MG IVP PRN ×2 (00:51→16:20)
[2020-07-27] MEDS: OFIRMEV IV 1000 MG VIAL 1,000 MG/100 ML VIAL IV PRN (02:10)
[2020-07-27] MEDS: K-RIDER 10 MEQ/NS 100 ML 10 MEQ/100 ML BAG IV PRN ×3 (03:00→13:32)
[2020-07-27 05:11] LABS: ABG BASE EXCESS 9.8 mmol/L (-2.0-2.0)
[2020-07-27 05:12] LABS: ABG HCO3 33.4 mmol/L (22-26)
--- NOTE | 2020-07-27 06:05 | RAD ---
HISTORYFollow-up COVID-19STUDYChest AP [id number]/21/2020FINDINGSThere is an endotracheal tube in good position above the ivis. There is a right IJ line in good position near the cavoatrial junction. Heart size is normal. Diffuse bilateral perihilar ground-glass infiltrates are again identified unchanged in degree or distributio n from the prior examination. No pleural effusions are identified. Bony thorax is unremarkable.IMPRES SIONNo change diffuse bilateral ground-glass infiltratesElectronically signed by: SOHAN MORAN (Jul 27, 2020 06:03:30)
[2020-07-27] MEDS: VERSED 100 MG in NS 100 ML IV 80 ML IV PRN ×2 (06:15→23:39)
[2020-07-27 06:16] LABS: BASOPHILS % (AUTO) 0.1 % (0.2-1.0); HEMATOCRIT 30.2 % (36.0-47.0); HEMOGLOBIN 11.1 g/dL (12.0-16.0); LYMPHOCYTES # (AUTO) 0.8 X10^3/uL (1.3-2.9); LYMPHOCYTES % (AUTO) 9.2 % (21.0-51.0); MEAN CORPUSCULAR HEMOGLOBIN 41.5 pg (27.0-34.0); MEAN CORPUSCULAR HGB CONC 36.8 g/dL (33.0-35.0); MEAN CORPUSCULAR VOLUME 112.9 fL (80.0-100.0); MEAN PLATELET VOLUME 7.7 fL (7.4-11.0); MONOCYTES # (AUTO) 0.6 x10^3/uL (0.3-0.8); MONOCYTES % (AUTO) 7.9 % (0.0-13.0); NEUTROPHILS # (AUTO) 6.7 x10^3/uL (2.2-4.8); NEUTROPHILS % (AUTO) 82.8 % (42.0-75.0); PLATELET COUNT 235 X10^3/uL (150.0-450.0); RED BLOOD COUNT 2.67 X10^6/uL (3.5-5.4); RED CELL DISTRIBUTION WIDTH 13.1 % (11.6-16.5); WHITE BLOOD COUNT 8.1 X10^3/uL (3.6-10.0)
[2020-07-27 06:19] LABS: ALANINE AMINOTRANSFERASE 51 Units/L (12-78); ALKALINE PHOSPHATASE 74 Units/L (46-116); ASPARTATE AMINO TRANSFERASE 32 Units/L (15-37); BLOOD UREA NITROGEN 26 mg/dL (7-18); CALCIUM 8.6 mg/dL (8.5-10.1); CARBON DIOXIDE 31.4 mmol/L (21-32); CHLORIDE 106 mmol/L (98-107); COR CA(FOR HYPOALB) 10.2 mg/dL (8.5-10.1); COR NA(FOR HYPERGLY) 148 mmol/L (136-145); CREATININE 0.74 mg/dL (0.55-1.02); SODIUM 144 mmol/L (136-145); TOTAL PROTEIN 5.4 g/dL (6.4-8.2); eGFR NON BLACK RACES > 60 (>60)
[2020-07-27] MEDS: SOLU-Medrol 40 MG VIAL IVP SCH ×3 (06:33→21:00)
[2020-07-27] MEDS: ZOSYN VIAL 4.5 GRAMS 4.5 G in NS 100 ML IV + SPIKE MINIBAG* 100 ML IV SCH ×3 (06:34→21:00)
[2020-07-27 07:25] LABS: PLATELET MORPHOLOGY COMMENT NORMAL (NORMAL)
[2020-07-27] MEDS ORDERED: MUCOMYST (RESPIRATORY USE ONLY) ONE (09:02)
[2020-07-27] MEDS: LACRI-LUBE S.O.P. AFFEYE SCH ×2 (09:24→20:52)
[2020-07-27] MEDS: NS 1000 ML 1,000 ML IV SCH (09:25)
[2020-07-27] MEDS: LOVENOX INJ 40 MG SYR SC SCH ×2 (09:25→20:53)
[2020-07-27] MEDS: PROCALAMINE 3 % 1,000 ML IV SCH ×2 (09:26→17:55)
[2020-07-27] MEDS: PROTONIX INJ 40 MG VIAL IVP SCH ×2 (09:26→20:55)
[2020-07-27] MEDS: DECADRON JET NEB (RESP USE) NEB SCH ×2 (09:32→20:30)
[2020-07-27] MEDS: DUONEB 0.5 MG/3 MG (3 mL) NEB SCH ×4 (09:32→20:30)
[2020-07-27] MEDS: MUCOMYST 20% 200 MG/ML NEB SCH ×2 (09:32→20:30)
[2020-07-27] MEDS: PULMICORT NEB TX 0.5 MG NEB SCH ×2 (09:32→20:30)
[2020-07-27] MEDS: PEPCID 20 MG IV PREMIX* 20 MG/50 ML BAG IV SCH ×2 (09:38→20:54)
[2020-07-27] MEDS: REMDESIVIR 100 MG in NS 250 ML IV 250 ML IV SCH (10:08)
[2020-07-27] MEDS: CIPRO IV 400 MG PREMIX* 400 MG/200 ML IV.SOLN. IV SCH ×2 (11:12→20:52)
--- NOTE | 2020-07-27 15:14 | PCM.PROG ---
Progress Note - Progress Note for Day of Date of Exam: 07/26/20 - Subjective Subjective: WAS ADMITTED FOR TREATMENT OF PNEUMONIA DUE TO COVID-19, RESPIRATORY DISTRESS, AND HYPOXIA. SHE WAS PLACED ON THE MECHANICAL VENT ON 07/24/20. SHE REMAINS ON THE VENT TODAY WITH SETTINGS FOLLOWS: A/C, VENT RATE 20, TIDAL VOLUME 550, PEEP 15, FI02 100. HER OXYGEN SATURATIONS ON THE BIPAP HAVE BEEN 90-96% ON THE VENT THIS MORNING. ON EXAMINATION, SHE IS BRADYCARDIC. BILATERAL LUNGS ARE NOTED WITH SCATTERED WHEEZING THROUGHOUT. ABDOMEN IS ROUND, SOFT, AND NON-TENDER WITH NORMAL BOWEL SOUNDS NOTED IN ALL QUADRANTS. HER VITALS THIS MORNING ARE: 100.7-50-20-92%-151/65. LABS WERE OBTAINED. ABNORMAL LAB VALUES INCLUDE THE FOLLOWING: WBC 10.3, RBC 2.82, HGB 10.8, HCT 30.6, SODIUM 14 6, POTASSIUM 2.9, BUN 26, GLUCOSE 281, CALCIUM 8.4, FERRITIN 472, AST 38, CRP 90, TOTAL PROTEIN 5.4, ALBUMIN 2.1. BLOOD AND SPUTUM CULTURES ARE PENDING. AN ABG WAS OBTAINED THIS MORNING AND REVEALED: PH 7.550, PC02 40.0, P02 69.0, HC03 35.0, 02 SAT 96, FI02 100.0. A CHEST XRAY WAS OBTAINED AND REVEALED: Bilateral ground-glass radiopacities left more than right with persistent some confluent zones in the left perihilar region. The infiltrates are less denser; however it could be technical. SHE IS CURRENTLY RECEIVING NS AT 40 ML/HR, REMDESIVIR 100MG IV DAILY, AZITHROMYCIN 500MG IV DAILY, ZOSYN 4.5G IV TID, SOLU-MEDROL 80MG IV Q8H, ATIVAN 0.5MG IV Q8H PRN, PEPCID 20MG IV BID, PROTONIX 40MG IV BID, LOVENOX 40MG SC BID, DUONEBS QID, PULMICORT NEBS BID, THE POTASSIUM AND MAGNESIUM PROTOCOLS, AND DIPROVAN FOR SEDATION. HER HOME MEDICATIONS WERE RESUMED. OTHERWISE, WE WILL CONTINUE WITH CURRENT PLAN OF CARE TODAY. WE WILL FOLLOW UP WITH AM LABS, CHEST XRAY, ABG AND CONTINUE TO MONITOR. - Past Medical Family Social History Past Med/Fam/Surg Hx: No changes since H&P Allergies: Allergies codeine Allergy (Verified 07/22/20 11:49) meperidine [From Demerol] Allergy (Verified 07/22/20 11:49) Tetanus Vaccines and Toxoid Allergy (Verified 07/22/20 11:49) - Review of Systems ROS: No change since H&P - Vital Signs and I&O's Vital Signs: Temperature 99.1 F Pulse Rate [Right Brachial] 47 Pulse Rate 46 Respiratory Rate 20 Blood Pressure [Left Radial 181/62 Artery] Blood Pressure [Right Arm] 178/70 Blood Pressure 141/62 O2 Sat by Pulse Oximetry 92 Intake and Output: Intake & Output 07/25/20 07/26/20 07/27/20 07/28/20 11:59 11:59 11:59 11:59 Intake Total 2586 / 2586 3233 / 3233 3462.00 / 3462.00 1077 / 1077 Output Total 3125 / 3125 2300 / 2300 4375 / 4375 625 / 625 Balance -539 / -539 933 / 933 -913.00 / -913.00 452 / 452 - Physical Exam Oriented: Unable to test Eyes: Normal Ear: Normal Nose: Normal Throat: Normal Respiratory: Generalized, Diminished, Wheezes Cardiovascular: Bradycardia : Normal Auscultation: Bowel Sounds: Normal Palpation: Normal Tenderness: Normal Skin: Normal Musculoskeletal: Normal Psychiatric: Normal Speech Pattern: Artificially Ventilated - Laboratory and Diagnostics Result Diagrams: 07/27/20 05:16 07/27/20 05:16 Labs: 07/24/20 22:37 Sputum - Endotracheal Wash Sputum Culture - Final 07/24/20 22:37 Sputum - Endotracheal Wash - Final 07/22/20 11:53 Blood Blood Culture - Preliminary 07/22/20 12:02 Blood Blood Culture - Preliminary 07/22/20 12:18 Sputum - Expectorated Sputum Sputum Culture - Final 07/22/20 12:18 Sputum - Expectorated Sputum - Final Laboratory WBC 8.1 X10^3/uL (3.6-10.0) 07/27/20 05:16 RBC 2.67 X10^6/uL (3.5-5.4) L 07/27/20 05:16 Hgb 11.1 g/dL (12.0-16.0) L 07/27/20 05:16 Hct 30.2 % (36.0-47.0) L 07/27/20 05:16 MCV 112.9 fL (80.0-100.0) H 07/27/20 05:16 MCH 41.5 pg (27.0-34.0) H 07/27/20 05:16 MCHC 36.8 g/dL (33.0-35.0) H 07/27/20 05:16 RDW 13.1 % (11.6-16.5) 07/27/20 05:16 Plt Count 235 X10^3/uL (150.0-450.0) 07/27/20 05:16 Plt Count Comment Adequate (ADEQUATE) 07/27/20 05:16 MPV 7.7 fL (7.4-11.0) 07/27/20 05:16 Neut % (Auto) 82.8 % (42.0-75.0) H 07/27/20 05:16 Lymph % (Auto) 9.2 % (21.0-51.0) L 07/27/20 05:16 [place] % (Auto) 7.9 % (0.0-13.0) 07/27/20 05:16 Eos % (Auto) 0.0 % (0.9-2.9) L 07/27/20 05:16 Baso % (Auto) 0.1 % (0.2-1.0) L 07/27/20 05:16 Neut # (Auto) 6.7 x10^3/uL (2.2-4.8) H 07/27/20 05:16 Lymph # (Auto) 0.8 X10^3/uL (1.3-2.9) L 07/27/20 05:16 [place] # (Auto) 0.6 x10^3/uL (0.3-0.8) 07/27/20 05:16 Eos # (Auto) 0.0 x10^3/uL (0.0-0.2) 07/27/20 05:16 Baso # (Auto) 0.0 X10^3/uL (0.0-0.1) 07/27/20 05:16 Absolute Nucleated RBC 0.0 /100WBC 07/27/20 05:16 Plt Morphology Comment Normal (NORMAL) 07/27/20 05:16 RBC Morphology Abnormal (NORMAL) A 07/27/20 05:16 Macrocytosis 2+ A 07/27/20 05:16 D-Dimer 1.22 ug/ml (0.0-0.57) H* 07/22/20 11:53 Sample Site A line 07/27/20 05:00 ABG pH 7.530 (7.35-7.45) H 07/27/20 05:00 ABG pCO2 40.0 mmHg (35.0-45.0) 07/27/20 05:00 ABG pO2 74.0 mmHg (80.0-100.0) L 07/27/20 05:00 ABG HCO3 33.4 mmol/L (22-26) H* 07/27/20 05:00 ABG O2 Saturation 96.0 % (90-100) 07/27/20 05:00 ABG Base Excess 9.8 mmol/L (-2.0-2.0) H 07/27/20 05:00 Alex Test Na 07/27/20 05:00 A-a Gradient 375.0 mmHg 07/27/20 05:00 FiO2 70.0 07/27/20 05:00 Blood Gas Comments Marie well sw 07/27/20 05:00 Sodium 144 mmol/L (136-145) 07/27/20 05:16 Corrected Sodium 148 mmol/L (136-145) H 07/27/20 05:16 Potassium 3.4 mmol/L (3.5-5.1) L 07/27/20 05:16 Chloride 106 mmol/L (98-107) 07/27/20 05:16 Carbon Dioxide 31.4 mmol/L (21-32) 07/27/20 05:16 BUN 26 mg/dL (7-18) H 07/27/20 05:16 Creatinine 0.74 mg/dL (0.55-1.02) 07/27/20 05:16 Est GFR (MDRD) Af Amer > 60 (>60) 07/27/20 05:16 Est GFR (MDRD) Non-Af > 60 (>60) 07/27/20 05:16 Glucose 285 mg/dL (65-99) H 07/27/20 05:16 Calcium 8.6 mg/dL (8.5-10.1) 07/27/20 05:16 Corrected Calcium 10.2 mg/dL (8.5-10.1) H 07/27/20 05:16 Magnesium 2.4 mg/dL (1.7-2.9) 07/26/20 04:56 Ferritin 476 ng/mL (8-252) H 07/27/20 05:16 Total Bilirubin 0.70 mg/dL (0.2-1.0) 07/27/20 05:16 AST 32 Units/L (15-37) 07/27/20 05:16 ALT 51 Units/L (12-78) 07/27/20 05:16 Alkaline Phosphatase 74 Units/L (46-116) 07/27/20 05:16 Creatine Kinase 330 Units/L (26-192) H 07/22/20 11:53 CK-MB (CK-2) 1.6 ng/mL (0-4.0) 07/22/20 11:53 CK/CKMB % Calc 0.5 % (<4) 07/22/20 11:53 Troponin I 0.04 ng/mL (0-1.5) 07/22/20 11:53 C-Reactive Protein 52.10 mg/L (0-3.0) H 07/27/20 05:16 B-Natriuretic Peptide 129 pg/mL (0-79) H 07/22/20 11:53 Total Protein 5.4 g/dL (6.4-8.2) L 07/27/20 05:16 Albumin 2.0 g/dL (3.4-5.0) L 07/27/20 05:16 Globulin 3.4 g/dL (2.5-4.5) 07/27/20 05:16 Albumin/Globulin Ratio 0.6 Ratio (1.1-2.1) L 07/27/20 05:16 Prealbumin 13.5 mg/dL (18-35.7) L 07/26/20 04:56 Specimen Type Catherized urine 07/24/20 20:00 Urine Color Yellow (YELLOW) 07/24/20 20:00 Urine Appearance Clear (CLEAR) 07/24/20 20:00 Urine pH 6.0 (5.0 - 8.0) 07/24/20 20:00 Ur Specific [place] 1.020 (1.000-1.030) 07/24/20 20:00 Urine Protein 2+ (NEGATIVE) 07/24/20 20:00 Urine Glucose (UA) 3+ (NEGATIVE) 07/24/20 20:00 Urine Ketones Negative (NEGATIVE) 07/24/20 20:00 Urine Occult Blood Negative (NEGATIVE) 07/24/20 20:00 Urine Nitrite Negative (NEGATIVE) 07/24/20 20:00 Urine Bilirubin Negative (NEGATIVE) 07/24/20 20:00 Urine Urobilinogen Normal (NORMAL) 07/24/20 20:00 Ur Leukocyte Esterase Negative (NEGATIVE) 07/24/20 20:00 Urine RBC 0-2 /HPF (0-3) 07/24/20 20:00 Urine WBC 0-2 /HPF (0-5) 07/24/20 20:00 Ur Squamous Epith Cells Rare /HPF (NEGATIVE) 07/24/20 20:00 Urine Bacteria Negative /HPF (NEGATIVE) 07/24/20 20:00 Urine Mucus Few /HPF (NEGATIVE) 07/24/20 20:00 Ur Culture Indicated? No/not indicated 07/24/20 20:00 SARS CoV-2 RNA Rapid CARMEN Positive (NEGATIVE) A 07/22/20 12:18 Blood Type O POSITIVE 07/25/20 02:28 - Plan (1) Pneumonia due to 2019 novel coronavirus Status: Acute Plan: NS AT 40 ML/HR, REMDESIVIR 100MG IV DAILY, AZITHROMYCIN 500MG IV DAILY, ZOSYN 4.5G IV TID, SOLU-MEDROL 80MG IV Q8H, ATIVAN 0.5MG IV Q8H PRN, PEPCID 20MG IV BID, PROTONIX 40MG IV BID, LOVENOX 40MG SC BID, DUONEBS QID, PULMICORT NEBS BID, THE POTASSIUM AND MAGNESIUM PROTOCOLS, AND DIPROVAN FOR SEDATION, HER HOME MEDICATIONS WERE RESUMED. MECHANICAL VENT (2) Hypoxia Status: Acute
--- NOTE | 2020-07-27 15:16 | PCM.PROG ---
Progress Note - Progress Note for Day of Date of Exam: 07/27/20 - Subjective Subjective: WAS ADMITTED FOR TREATMENT OF PNEUMONIA DUE TO COVID-19, RESPIRATORY DISTRESS, AND HYPOXIA. SHE REMAINS ON THE MECHANICAL VENT THIS MORNING. HER SETTINGS ARE FOLLOWS: A/C, VENT RATE 20, TIDAL VOLUME 550, PEEP 15, FI02 70. HER OXYGEN SATURATIONS ON THE BIPAP HAVE BEEN 95-98% ON THE VENT THIS MORNING. ON EXAMINATION, SHE CONTINUES TO BE BRADYCARDIC WITH HR IN THE 50s. BILATERAL LUNGS ARE NOTED WITH SCATTERED WHEEZING THROUGHOUT. ABDOMEN IS ROUND, SOFT, AND NON-TENDER WITH NORMAL BOWEL SOUNDS NOTED IN ALL QUADRANTS. HER VITALS THIS MORNING ARE: 99.4-48-20-97%-110/74. LABS WERE OBTAINED. ABNORMAL LAB VALUES INCLUDE THE FOLLOWING: RBC 2.67, HGB 11.1, HCT 30.2, POTASSIUM 3.4, BUN 26, GLUCOSE 285, FERRITIN 476, CRP 52.10, TOTAL PROTEIN 5.4, ALBUMIN 2.0. BLOOD AND SPUTUM CULTURES ARE PENDING. AN ABG WAS OBTAINED THIS MORNING AND REVEALED: PH 7.530, PC02 40, P02 74, HC03 33.4, 02 SAT 96, FI02 70. A CHEST XRAY WAS OBTAINED AND REVEALED: No change diffuse bilateral ground-glass infiltrates. SHE IS CURRENTLY RECEIVING NS AT 40 ML/HR, REMDESIVIR 100MG IV DAILY, AZITHROMYCIN 500MG IV DAILY, ZOSYN 4.5G IV TID, SOLU-MEDROL 80MG IV Q8H, ATIVAN 0.5MG IV Q8H PRN, PEPCID 20MG IV BID, PROTONIX 40MG IV BID, LOVENOX 40MG SC BID, DUONEBS QID, PULMICORT NEBS BID, THE POTASSIUM AND MAGNESIUM PROTOCOLS, AND DIPROVAN AND VERSED FOR SEDATION. HER HOME MEDICATIONS WERE RESUMED. TODAY, WE WILL DISCONTINUE THE AZITHROMYCIN AND START CIPRO 400MG IV BID. OTHERWISE, WE WILL CONTINUE WITH CURRENT PLAN OF CARE TODAY. WE WILL FOLLOW UP WITH AM LABS, CHEST XRAY, ABG, AND CONTINUE TO MONITOR. - Past Medical Family Social History Past Med/Fam/Surg Hx: No changes since H&P Allergies: Allergies codeine Allergy (Verified 07/22/20 11:49) meperidine [From Demerol] Allergy (Verified 07/22/20 11:49) Tetanus Vaccines and Toxoid Allergy (Verified 07/22/20 11:49) - Review of Systems ROS: No change since H&P - Vital Signs and I&O's Vital Signs: Temperature 99.1 F Pulse Rate [Right Brachial] 47 Pulse Rate 46 Respiratory Rate 20 Blood Pressure [Left Radial 181/62 Artery] Blood Pressure [Right Arm] 178/70 Blood Pressure 141/62 O2 Sat by Pulse Oximetry 92 Intake and Output: Intake & Output 07/25/20 07/26/20 07/27/20 07/28/20 11:59 11:59 11:59 11:59 Intake Total 2586 / 2586 3233 / 3233 3462.00 / 3462.00 1077 / 1077 Output Total 3125 / 3125 2300 / 2300 4375 / 4375 625 / 625 Balance -539 / -539 933 / 933 -913.00 / -913.00 452 / 452 - Physical Exam Oriented: Unable to test Eyes: Normal Ear: Normal Nose: Normal Throat: Normal Respiratory: Generalized, Diminished, Wheezes Cardiovascular: Bradycardia : Normal Auscultation: Bowel Sounds: Normal Palpation: Normal Tenderness: Normal Skin: Normal Musculoskeletal: Normal Psychiatric: Normal Mood Description: Anxious Affect: Anxious Speech Pattern: Artificially Ventilated - Laboratory and Diagnostics Result Diagrams: 07/27/20 05:16 07/27/20 05:16 Labs: 07/24/20 22:37 Sputum - Endotracheal Wash Sputum Culture - Final 07/24/20 22:37 Sputum - Endotracheal Wash - Final 07/22/20 11:53 Blood Blood Culture - Preliminary 07/22/20 12:02 Blood Blood Culture - Preliminary 07/22/20 12:18 Sputum - Expectorated Sputum Sputum Culture - Final 07/22/20 12:18 Sputum - Expectorated Sputum - Final Laboratory WBC 8.1 X10^3/uL (3.6-10.0) 07/27/20 05:16 RBC 2.67 X10^6/uL (3.5-5.4) L 07/27/20 05:16 Hgb 11.1 g/dL (12.0-16.0) L 07/27/20 05:16 Hct 30.2 % (36.0-47.0) L 07/27/20 05:16 MCV 112.9 fL (80.0-100.0) H 07/27/20 05:16 MCH 41.5 pg (27.0-34.0) H 07/27/20 05:16 MCHC 36.8 g/dL (33.0-35.0) H 07/27/20 05:16 RDW 13.1 % (11.6-16.5) 07/27/20 05:16 Plt Count 235 X10^3/uL (150.0-450.0) 07/27/20 05:16 Plt Count Comment Adequate (ADEQUATE) 07/27/20 05:16 MPV 7.7 fL (7.4-11.0) 07/27/20 05:16 Neut % (Auto) 82.8 % (42.0-75.0) H 07/27/20 05:16 Lymph % (Auto) 9.2 % (21.0-51.0) L 07/27/20 05:16 [place] % (Auto) 7.9 % (0.0-13.0) 07/27/20 05:16 Eos % (Auto) 0.0 % (0.9-2.9) L 07/27/20 05:16 Baso % (Auto) 0.1 % (0.2-1.0) L 07/27/20 05:16 Neut # (Auto) 6.7 x10^3/uL (2.2-4.8) H 07/27/20 05:16 Lymph # (Auto) 0.8 X10^3/uL (1.3-2.9) L 07/27/20 05:16 [place] # (Auto) 0.6 x10^3/uL (0.3-0.8) 07/27/20 05:16 Eos # (Auto) 0.0 x10^3/uL (0.0-0.2) 07/27/20 05:16 Baso # (Auto) 0.0 X10^3/uL (0.0-0.1) 07/27/20 05:16 Absolute Nucleated RBC 0.0 /100WBC 07/27/20 05:16 Plt Morphology Comment Normal (NORMAL) 07/27/20 05:16 RBC Morphology Abnormal (NORMAL) A 07/27/20 05:16 Macrocytosis 2+ A 07/27/20 05:16 D-Dimer 1.22 ug/ml (0.0-0.57) H* 07/22/20 11:53 Sample Site A line 07/27/20 05:00 ABG pH 7.530 (7.35-7.45) H 07/27/20 05:00 ABG pCO2 40.0 mmHg (35.0-45.0) 07/27/20 05:00 ABG pO2 74.0 mmHg (80.0-100.0) L 07/27/20 05:00 ABG HCO3 33.4 mmol/L (22-26) H* 07/27/20 05:00 ABG O2 Saturation 96.0 % (90-100) 07/27/20 05:00 ABG Base Excess 9.8 mmol/L (-2.0-2.0) H 07/27/20 05:00 Alex Test Na 07/27/20 05:00 A-a Gradient 375.0 mmHg 07/27/20 05:00 FiO2 70.0 07/27/20 05:00 Blood Gas Comments Marie well sw 07/27/20 05:00 Sodium 144 mmol/L (136-145) 07/27/20 05:16 Corrected Sodium 148 mmol/L (136-145) H 07/27/20 05:16 Potassium 3.4 mmol/L (3.5-5.1) L 07/27/20 05:16 Chloride 106 mmol/L (98-107) 07/27/20 05:16 Carbon Dioxide 31.4 mmol/L (21-32) 07/27/20 05:16 BUN 26 mg/dL (7-18) H 07/27/20 05:16 Creatinine 0.74 mg/dL (0.55-1.02) 07/27/20 05:16 Est GFR (MDRD) Af Amer > 60 (>60) 07/27/20 05:16 Est GFR (MDRD) Non-Af > 60 (>60) 07/27/20 05:16 Glucose 285 mg/dL (65-99) H 07/27/20 05:16 Calcium 8.6 mg/dL (8.5-10.1) 07/27/20 05:16 Corrected Calcium 10.2 mg/dL (8.5-10.1) H 07/27/20 05:16 Magnesium 2.4 mg/dL (1.7-2.9) 07/26/20 04:56 Ferritin 476 ng/mL (8-252) H 07/27/20 05:16 Total Bilirubin 0.70 mg/dL (0.2-1.0) 07/27/20 05:16 AST 32 Units/L (15-37) 07/27/20 05:16 ALT 51 Units/L (12-78) 07/27/20 05:16 Alkaline Phosphatase 74 Units/L (46-116) 07/27/20 05:16 Creatine Kinase 330 Units/L (26-192) H 07/22/20 11:53 CK-MB (CK-2) 1.6 ng/mL (0-4.0) 07/22/20 11:53 CK/CKMB % Calc 0.5 % (<4) 07/22/20 11:53 Troponin I 0.04 ng/mL (0-1.5) 07/22/20 11:53 C-Reactive Protein 52.10 mg/L (0-3.0) H 07/27/20 05:16 B-Natriuretic Peptide 129 pg/mL (0-79) H 07/22/20 11:53 Total Protein 5.4 g/dL (6.4-8.2) L 07/27/20 05:16 Albumin 2.0 g/dL (3.4-5.0) L 07/27/20 05:16 Globulin 3.4 g/dL (2.5-4.5) 07/27/20 05:16 Albumin/Globulin Ratio 0.6 Ratio (1.1-2.1) L 07/27/20 05:16 Prealbumin 13.5 mg/dL (18-35.7) L 07/26/20 04:56 Specimen Type Catherized urine 07/24/20 20:00 Urine Color Yellow (YELLOW) 07/24/20 20:00 Urine Appearance Clear (CLEAR) 07/24/20 20:00 Urine pH 6.0 (5.0 - 8.0) 07/24/20 20:00 Ur Specific [place] 1.020 (1.000-1.030) 07/24/20 20:00 Urine Protein 2+ (NEGATIVE) 07/24/20 20:00 Urine Glucose (UA) 3+ (NEGATIVE) 07/24/20 20:00 Urine Ketones Negative (NEGATIVE) 07/24/20 20:00 Urine Occult Blood Negative (NEGATIVE) 07/24/20 20:00 Urine Nitrite Negative (NEGATIVE) 07/24/20 20:00 Urine Bilirubin Negative (NEGATIVE) 07/24/20 20:00 Urine Urobilinogen Normal (NORMAL) 07/24/20 20:00 Ur Leukocyte Esterase Negative (NEGATIVE) 07/24/20 20:00 Urine RBC 0-2 /HPF (0-3) 07/24/20 20:00 Urine WBC 0-2 /HPF (0-5) 07/24/20 20:00 Ur Squamous Epith Cells Rare /HPF (NEGATIVE) 07/24/20 20:00 Urine Bacteria Negative /HPF (NEGATIVE) 07/24/20 20:00 Urine Mucus Few /HPF (NEGATIVE) 07/24/20 20:00 Ur Culture Indicated? No/not indicated 07/24/20 20:00 SARS CoV-2 RNA Rapid CARMEN Positive (NEGATIVE) A 07/22/20 12:18 Blood Type O POSITIVE 07/25/20 02:28 - Plan (1) Pneumonia due to 2019 novel coronavirus Status: Acute Plan: NS AT 40 ML/HR, REMDESIVIR 100MG IV DAILY, AZITHROMYCIN 500MG IV DAILY, ZOSYN 4.5G IV TID, SOLU-MEDROL 80MG IV Q8H, ATIVAN 0.5MG IV Q8H PRN, PEPCID 20MG IV BID, PROTONIX 40MG IV BID, LOVENOX 40MG SC BID, DUONEBS QID, PULMICORT NEBS BID, THE POTASSIUM AND MAGNESIUM PROTOCOLS, AND DIPROVAN FOR SEDATION, HER HOME MEDICATIONS WERE RESUMED. MECHANICAL VENT (2) Hypoxia Status: Acute
[2020-07-28 04:26] LABS: ABG BASE EXCESS 4.3 mmol/L (-2.0-2.0); ABG HCO3 29.2 mmol/L (22-26)
[2020-07-28] MEDS: ZOSYN VIAL 4.5 GRAMS 4.5 G in NS 100 ML IV + SPIKE MINIBAG* 100 ML IV SCH ×4 (05:32→21:01)
[2020-07-28] MEDS: SOLU-Medrol 40 MG VIAL IVP SCH ×3 (05:32→21:00)
[2020-07-28 05:41] LABS: BASOPHILS % (AUTO) 0.2 % (0.2-1.0); HEMATOCRIT 30.9 % (36.0-47.0); HEMOGLOBIN 10.9 g/dL (12.0-16.0); LYMPHOCYTES # (AUTO) 0.7 X10^3/uL (1.3-2.9); LYMPHOCYTES % (AUTO) 9.5 % (21.0-51.0); MEAN CORPUSCULAR HEMOGLOBIN 37.7 pg (27.0-34.0); MEAN CORPUSCULAR HGB CONC 35.2 g/dL (33.0-35.0); MEAN PLATELET VOLUME 7.8 fL (7.4-11.0); MONOCYTES # (AUTO) 0.7 x10^3/uL (0.3-0.8); MONOCYTES % (AUTO) 8.9 % (0.0-13.0); NEUTROPHILS # (AUTO) 6.4 x10^3/uL (2.2-4.8); NEUTROPHILS % (AUTO) 81.4 % (42.0-75.0); PLATELET COUNT 244 X10^3/uL (150.0-450.0); RED BLOOD COUNT 2.89 X10^6/uL (3.5-5.4); RED CELL DISTRIBUTION WIDTH 12.8 % (11.6-16.5); WHITE BLOOD COUNT 7.8 X10^3/uL (3.6-10.0)
[2020-07-28 06:07] LABS: ALANINE AMINOTRANSFERASE 55 Units/L (12-78); ALKALINE PHOSPHATASE 77 Units/L (46-116); ASPARTATE AMINO TRANSFERASE 37 Units/L (15-37); BLOOD UREA NITROGEN 29 mg/dL (7-18); CALCIUM 8.8 mg/dL (8.5-10.1); CARBON DIOXIDE 27.4 mmol/L (21-32); CHLORIDE 109 mmol/L (98-107); COR CA(FOR HYPOALB) 10.4 mg/dL (8.5-10.1); COR NA(FOR HYPERGLY) 150 mmol/L (136-145); CREATININE 0.61 mg/dL (0.55-1.02); SODIUM 145 mmol/L (136-145); TOTAL PROTEIN 5.3 g/dL (6.4-8.2); eGFR NON BLACK RACES > 60 (>60)
[2020-07-28 06:08] LABS: HYPOCHROMASIA SLIGHT; PLATELET MORPHOLOGY COMMENT NORMAL (NORMAL)
--- NOTE | 2020-07-28 07:30 | RAD ---
HISTORYShortness of breathSTUDYChest AP [id number] is an endotracheal tube in good position. There is a right IJ line in good position. The heart is within normal limits in size. Diffuse bilateral perihilar inte rstitial, ground-glass and alveolar infiltrates are again identified not significantly changed from t he prior examination considering a difference in film technique. No pleural effusions are identified. Bony thorax is unremarkable.IMPRESSIONNo significant change from the prior examinationElectronically signed by: SOHAN MORAN (Jul 28, 2020 07:28:58)
[2020-07-28] MEDS: MORPHINE SULFATE PCA 30 MG IVP PRN (08:15)
[2020-07-28] MEDS: LACRI-LUBE S.O.P. AFFEYE SCH ×2 (08:18→20:53)
[2020-07-28] MEDS: PROTONIX INJ 40 MG VIAL IVP SCH ×2 (08:18→20:54)
[2020-07-28] MEDS: LOVENOX INJ 40 MG SYR SC SCH ×2 (08:18→20:53)
[2020-07-28] MEDS: DECADRON JET NEB (RESP USE) NEB SCH ×2 (08:32→20:13)
[2020-07-28] MEDS: MUCOMYST 20% 200 MG/ML NEB SCH ×2 (08:32→20:13)
[2020-07-28] MEDS: PULMICORT NEB TX 0.5 MG NEB SCH ×2 (08:32→20:13)
[2020-07-28] MEDS: DUONEB 0.5 MG/3 MG (3 mL) NEB SCH ×4 (08:32→20:13)
[2020-07-28] MEDS: PEPCID 20 MG IV PREMIX* 20 MG/50 ML BAG IV SCH ×2 (08:57→20:53)
[2020-07-28] MEDS: PROCALAMINE 3 % 1,000 ML IV SCH ×2 (09:04→20:54)
[2020-07-28] MEDS: NS 1000 ML 1,000 ML IV SCH ×2 (09:04→20:56)
[2020-07-28] MEDS: REMDESIVIR 100 MG in NS 250 ML IV 250 ML IV SCH (09:17)
[2020-07-28] MEDS: CIPRO IV 400 MG PREMIX* 400 MG/200 ML IV.SOLN. IV SCH ×2 (10:35→20:52)
[2020-07-28] MEDS ORDERED: BENADRYL INJ 50 MG VIAL IVP ONE (11:16)
[2020-07-28] MEDS: K-RIDER 10 MEQ/NS 100 ML 10 MEQ/100 ML BAG IV PRN ×2 (11:46→13:04)
[2020-07-28] MEDS: VERSED 100 MG in NS 100 ML IV 80 ML IV PRN ×2 (12:25→20:55)
[2020-07-28] MEDS: ATIVAN INJ 2 MG VIAL IVP PRN (13:36)
[2020-07-28] MEDS: OFIRMEV IV 1000 MG VIAL 1,000 MG/100 ML VIAL IV PRN (14:11)
[2020-07-29] MEDS: MORPHINE SULFATE PCA 30 MG IVP PRN ×2 (00:54→17:05)
[2020-07-29] MEDS: DIPRIVAN PREMIX 1 GRAM IV 1,000 MG/100 ML VIAL IV PRN ×3 (01:21→23:00)
[2020-07-29 05:09] LABS: ABG BASE EXCESS 2.8 mmol/L (-2.0-2.0); ABG HCO3 25.7 mmol/L (22-26)
[2020-07-29] MEDS: ZOSYN VIAL 4.5 GRAMS 4.5 G in NS 100 ML IV + SPIKE MINIBAG* 100 ML IV SCH ×3 (05:36→21:25)
[2020-07-29] MEDS: SOLU-Medrol 40 MG VIAL IVP SCH ×3 (05:36→21:25)
[2020-07-29 05:39] LABS: BASOPHILS % (AUTO) 0.1 % (0.2-1.0); HEMATOCRIT 30.2 % (36.0-47.0); HEMOGLOBIN 10.8 g/dL (12.0-16.0); LYMPHOCYTES # (AUTO) 0.6 X10^3/uL (1.3-2.9); LYMPHOCYTES % (AUTO) 7.5 % (21.0-51.0); MEAN CORPUSCULAR HEMOGLOBIN 38.3 pg (27.0-34.0); MEAN CORPUSCULAR HGB CONC 35.7 g/dL (33.0-35.0); MEAN CORPUSCULAR VOLUME 107.4 fL (80.0-100.0); MONOCYTES # (AUTO) 0.5 x10^3/uL (0.3-0.8); MONOCYTES % (AUTO) 6.2 % (0.0-13.0); NEUTROPHILS # (AUTO) 6.4 x10^3/uL (2.2-4.8); NEUTROPHILS % (AUTO) 86.2 % (42.0-75.0); PLATELET COUNT 231 X10^3/uL (150.0-450.0); RED BLOOD COUNT 2.81 X10^6/uL (3.5-5.4); RED CELL DISTRIBUTION WIDTH 12.9 % (11.6-16.5); WHITE BLOOD COUNT 7.5 X10^3/uL (3.6-10.0)
[2020-07-29 05:41] LABS: ALANINE AMINOTRANSFERASE 88 Units/L (12-78); ALBUMIN 2.2 g/dL (3.4-5.0); ALKALINE PHOSPHATASE 75 Units/L (46-116); ASPARTATE AMINO TRANSFERASE 48 Units/L (15-37); BLOOD UREA NITROGEN 25 mg/dL (7-18); CALCIUM 8.4 mg/dL (8.5-10.1); CARBON DIOXIDE 25.8 mmol/L (21-32); CHLORIDE 108 mmol/L (98-107); COR CA(FOR HYPOALB) 9.8 mg/dL (8.5-10.1); COR NA(FOR HYPERGLY) 151 mmol/L (136-145); CREATININE 0.62 mg/dL (0.55-1.02); SODIUM 146 mmol/L (136-145); TOTAL PROTEIN 5.6 g/dL (6.4-8.2); eGFR NON BLACK RACES > 60 (>60)
[2020-07-29] MEDS: VERSED 100 MG in NS 100 ML IV 80 ML IV PRN ×2 (05:55→20:14)
[2020-07-29 05:56] LABS: HYPOCHROMASIA SLIGHT; PLATELET MORPHOLOGY COMMENT NORMAL (NORMAL)
--- NOTE | 2020-07-29 06:50 | RAD ---
HISTORYShortness of breathSTUDYChest AP [id number] is an endotracheal tube in good position. There is a right IJ line in good position. The heart remains within normal limits in size. Diffuse bilateral interstit ial, ground glass and patchy alveolar infiltrates are again identified not significantly changed from the prior examination. No pleural effusions are identified. Bony thorax is unremarkable.IMPRESSIONNo significant change from the prior examinationElectronically signed by: SOHAN MORAN (Jul 29, 2020 0 6:48:58)
[2020-07-29] MEDS: LOVENOX INJ 40 MG SYR SC SCH ×2 (08:32→20:12)
[2020-07-29] MEDS: LACRI-LUBE S.O.P. AFFEYE SCH ×2 (08:32→20:12)
[2020-07-29] MEDS: PEPCID 20 MG IV PREMIX* 20 MG/50 ML BAG IV SCH ×2 (08:34→20:13)
[2020-07-29] MEDS: PROCALAMINE 3 % 1,000 ML IV SCH (08:36)
[2020-07-29] MEDS: PROTONIX INJ 40 MG VIAL IVP SCH ×2 (08:36→20:13)
[2020-07-29] MEDS: NS 1000 ML 1,000 ML IV SCH (08:36)
[2020-07-29] MEDS: REMDESIVIR 100 MG in NS 250 ML IV 250 ML IV SCH (09:05)
[2020-07-29] MEDS: DECADRON JET NEB (RESP USE) NEB SCH ×2 (09:11→20:35)
[2020-07-29] MEDS: PULMICORT NEB TX 0.5 MG NEB SCH ×2 (09:11→20:35)
[2020-07-29] MEDS: DUONEB 0.5 MG/3 MG (3 mL) NEB SCH ×4 (09:11→20:35)
--- NOTE | 2020-07-29 09:47 | PCM.PROG ---
Progress Note - Progress Note for Day of Date of Exam: 07/28/20 - Subjective Subjective: WAS ADMITTED FOR TREATMENT OF PNEUMONIA DUE TO COVID-19, RESPIRATORY DISTRESS, AND HYPOXIA. SHE REMAINS ON THE MECHANICAL VENT THIS MORNING. HER SETTINGS ARE FOLLOWS: A/C, VENT RATE 20, TIDAL VOLUME 550, PEEP 15, PEAK FLOW 45, FI02 40. HER OXYGEN SATURATIONS ON THE BIPAP HAVE BEEN 96-98% ON THE VENT THIS MORNING. ON EXAMINATION, SHE CONTINUES TO BE BRADYCARDIC WITH HR IN THE 50s. BILATERAL LUNGS NOTED WITH RALES THROUGHOUT. ABDOMEN IS ROUND, SOFT, AND NON-TENDER WITH NORMAL BOWEL SOUNDS NOTED IN ALL QUADRANTS. HER VITALS THIS MORNING ARE: 99.3-60-20-98%-128/70. LABS WERE OBTAINED. ABNORMAL LAB VALUES INCLUDE THE FOLLOWING: RBC 2.89, HGB 10.9, HCT 30.9, CHLORIDE 109, BUN 29, GLUCOSE 309, FERRITIN 616, CRP 26.70, TOTAL PROTEIN 5.3, ALBUMIN 2.0. BLOOD AND SPUTUM CULTURES ARE PENDING. AN ABG WAS OBTAINED THIS MORNING AND REVEALED: PH 7.530, PC02 40, P02 74, HC03 33.4, 02 SAT 96, FI02 70. A CHEST XRAY WAS OBTAINED AND REVEALED: There is an endotracheal tube in good position. There is a right IJ line in good position. The heart is within normal limits in size. Diffuse figueroa ateral perihilar interstitial, ground-glass and alveolar infiltrates are again identified not significantly changed from the prior examination considering a difference in film technique. No pleural effusions are identified. Bony thorax is unremarkable. SHE IS CURRENTLY RECEIVING NS AT 40 ML/HR, REMDESIVIR 100MG IV DAILY, CIPRO 400MG IV BID, ZOSYN 4.5G IV TID, SOLU-MEDROL 80MG IV Q8H, ATIVAN 0.5MG IV Q8H PRN, PEPCID 20MG IV BID, PROTONIX 40MG IV BID, LOVENOX 40MG SC BID, DUONEBS QID, PULMICORT NEBS BID, THE POTASSIUM AND MAGNESIUM PROTOCOLS, AND DIPROVAN AND VERSED FOR SEDATION. HER HOME MEDICATIONS WERE RESUMED. OTHERWISE, WE WILL CONTINUE WITH CURRENT PLAN OF CARE. WE WILL ATTEMPT TO WEAN OFF OF THE VENT TODAY. WE WILL FOLLOW UP WITH AM LABS, CHEST XRAY, ABG, AND CONTINUE TO MONITOR. - Past Medical Family Social History Past Med/Fam/Surg Hx: No changes since H&P Allergies: Allergies codeine Allergy (Verified 07/22/20 11:49) meperidine [From Demerol] Allergy (Verified 07/22/20 11:49) Tetanus Vaccines and Toxoid Allergy (Verified 07/22/20 11:49) - Review of Systems ROS: No change since H&P - Vital Signs and I&O's Vital Signs: Temperature 99.3 F Pulse Rate [Right Brachial] 55 Pulse Rate 56 Respiratory Rate 20 Blood Pressure [Left Radial 212/79 Artery] Blood Pressure [Right Arm] 209/83 Blood Pressure 141/62 O2 Sat by Pulse Oximetry 93 Intake and Output: Intake & Output 07/26/20 07/27/20 07/28/20 07/29/20 11:59 11:59 11:59 11:59 Intake Total 3233 / 3233 3462.00 / 3462.00 3009 / 3009 3958 / 3958 Output Total 2300 / 2300 4375 / 4375 1725 / 1725 1325 / 1325 Balance 933 / 933 -913.00 / -913.00 1284 / 1284 2633 / 2633 - Physical Exam Oriented: Unable to test Eyes: Normal Ear: Normal Nose: Normal Throat: Normal Respiratory: Generalized, Diminished, Wheezes Cardiovascular: Bradycardia : Normal Auscultation: Bowel Sounds: Normal Palpation: Normal Tenderness: Normal Skin: Normal Musculoskeletal: Normal Psychiatric: Normal Mood Description: Anxious Affect: Anxious Speech Pattern: Artificially Ventilated - Laboratory and Diagnostics Result Diagrams: 07/29/20 04:13 07/29/20 04:13 Labs: 07/22/20 11:53 Blood Blood Culture - Final 07/22/20 12:02 Blood Blood Culture - Final 07/24/20 22:37 Sputum - Endotracheal Wash Sputum Culture - Final 07/24/20 22:37 Sputum - Endotracheal Wash - Final 07/22/20 12:18 Sputum - Expectorated Sputum Sputum Culture - Final 07/22/20 12:18 Sputum - Expectorated Sputum - Final Laboratory WBC 7.5 X10^3/uL (3.6-10.0) 07/29/20 04:13 RBC 2.81 X10^6/uL (3.5-5.4) L 07/29/20 04:13 Hgb 10.8 g/dL (12.0-16.0) L 07/29/20 04:13 Hct 30.2 % (36.0-47.0) L 07/29/20 04:13 MCV 107.4 fL (80.0-100.0) H 07/29/20 04:13 MCH 38.3 pg (27.0-34.0) H 07/29/20 04:13 MCHC 35.7 g/dL (33.0-35.0) H 07/29/20 04:13 RDW 12.9 % (11.6-16.5) 07/29/20 04:13 Plt Count 231 X10^3/uL (150.0-450.0) 07/29/20 04:13 Plt Count Comment Adequate (ADEQUATE) 07/29/20 04:13 MPV 8.0 fL (7.4-11.0) 07/29/20 04:13 Neut % (Auto) 86.2 % (42.0-75.0) H 07/29/20 04:13 Lymph % (Auto) 7.5 % (21.0-51.0) L 07/29/20 04:13 [place] % (Auto) 6.2 % (0.0-13.0) 07/29/20 04:13 Eos % (Auto) 0.0 % (0.9-2.9) L 07/29/20 04:13 Baso % (Auto) 0.1 % (0.2-1.0) L 07/29/20 04:13 Neut # (Auto) 6.4 x10^3/uL (2.2-4.8) H 07/29/20 04:13 Lymph # (Auto) 0.6 X10^3/uL (1.3-2.9) L 07/29/20 04:13 [place] # (Auto) 0.5 x10^3/uL (0.3-0.8) 07/29/20 04:13 Eos # (Auto) 0.0 x10^3/uL (0.0-0.2) 07/29/20 04:13 Baso # (Auto) 0.0 X10^3/uL (0.0-0.1) 07/29/20 04:13 Absolute Nucleated RBC 0.0 /100WBC 07/29/20 04:13 Plt Morphology Comment Normal (NORMAL) 07/29/20 04:13 RBC Morphology Abnormal (NORMAL) A 07/29/20 04:13 Hypochromasia Slight A 07/29/20 04:13 Macrocytosis 1+ A 07/29/20 04:13 D-Dimer 1.22 ug/ml (0.0-0.57) H* 07/22/20 11:53 Sample Site Artline 07/29/20 05:08 ABG pH 7.500 (7.35-7.45) H 07/29/20 05:08 ABG pCO2 33.0 mmHg (35.0-45.0) L 07/29/20 05:08 ABG pO2 71.0 mmHg (80.0-100.0) L 07/29/20 05:08 ABG HCO3 25.7 mmol/L (22-26) 07/29/20 05:08 ABG O2 Saturation 95.0 % (90-100) 07/29/20 05:08 ABG Base Excess 2.8 mmol/L (-2.0-2.0) H 07/29/20 05:08 Alex Test Na 07/29/20 05:08 A-a Gradient 137.0 mmHg 07/29/20 05:08 FiO2 35.0 07/29/20 05:08 Blood Gas Comments Marie abg well-mtf 07/29/20 05:08 Sodium 146 mmol/L (136-145) H 07/29/20 04:13 Corrected Sodium 151 mmol/L (136-145) H 07/29/20 04:13 Potassium 4.0 mmol/L (3.5-5.1) 07/29/20 04:13 Chloride 108 mmol/L (98-107) H 07/29/20 04:13 Carbon Dioxide 25.8 mmol/L (21-32) 07/29/20 04:13 BUN 25 mg/dL (7-18) H 07/29/20 04:13 Creatinine 0.62 mg/dL (0.55-1.02) 07/29/20 04:13 Est GFR (MDRD) Af Amer > 60 (>60) 07/29/20 04:13 Est GFR (MDRD) Non-Af > 60 (>60) 07/29/20 04:13 Glucose 302 mg/dL (65-99) H 07/29/20 04:13 Calcium 8.4 mg/dL (8.5-10.1) L 07/29/20 04:13 Corrected Calcium 9.8 mg/dL (8.5-10.1) 07/29/20 04:13 Magnesium 2.4 mg/dL (1.7-2.9) 07/26/20 04:56 Ferritin 957 ng/mL (8-252) H 07/29/20 04:13 Total Bilirubin 1.00 mg/dL (0.2-1.0) 07/29/20 04:13 AST 48 Units/L (15-37) H 07/29/20 04:13 ALT 88 Units/L (12-78) H 07/29/20 04:13 Alkaline Phosphatase 75 Units/L (46-116) 07/29/20 04:13 Creatine Kinase 330 Units/L (26-192) H 07/22/20 11:53 CK-MB (CK-2) 1.6 ng/mL (0-4.0) 07/22/20 11:53 CK/CKMB % Calc 0.5 % (<4) 07/22/20 11:53 Troponin I 0.04 ng/mL (0-1.5) 07/22/20 11:53 C-Reactive Protein 21.80 mg/L (0-3.0) H 07/29/20 04:13 B-Natriuretic Peptide 129 pg/mL (0-79) H 07/22/20 11:53 Total Protein 5.6 g/dL (6.4-8.2) L 07/29/20 04:13 Albumin 2.2 g/dL (3.4-5.0) L 07/29/20 04:13 Globulin 3.4 g/dL (2.5-4.5) 07/29/20 04:13 Prealbumin 13.5 mg/dL (18-35.7) L 07/26/20 04:56 Albumin/Globulin Ratio 0.6 Ratio (1.1-2.1) L 07/29/20 04:13 Specimen Type Catherized urine 07/24/20 20:00 Urine Color Yellow (YELLOW) 07/24/20 20:00 Urine Appearance Clear (CLEAR) 07/24/20 20:00 Urine pH 6.0 (5.0 - 8.0) 07/24/20 20:00 Ur Specific [place] 1.020 (1.000-1.030) 07/24/20 20:00 Urine Protein 2+ (NEGATIVE) 07/24/20 20:00 Urine Glucose (UA) 3+ (NEGATIVE) 07/24/20 20:00 Urine Ketones Negative (NEGATIVE) 07/24/20 20:00 Urine Occult Blood Negative (NEGATIVE) 07/24/20 20:00 Urine Nitrite Negative (NEGATIVE) 07/24/20 20:00 Urine Bilirubin Negative (NEGATIVE) 07/24/20 20:00 Urine Urobilinogen Normal (NORMAL) 07/24/20 20:00 Ur Leukocyte Esterase Negative (NEGATIVE) 07/24/20 20:00 Urine RBC 0-2 /HPF (0-3) 07/24/20 20:00 Urine WBC 0-2 /HPF (0-5) 07/24/20 20:00 Ur Squamous Epith Cells Rare /HPF (NEGATIVE) 07/24/20 20:00 Urine Bacteria Negative /HPF (NEGATIVE) 07/24/20 20:00 Urine Mucus Few /HPF (NEGATIVE) 07/24/20 20:00 Ur Culture Indicated? No/not indicated 07/24/20 20:00 SARS CoV-2 RNA Rapid CARMEN Positive (NEGATIVE) A 07/22/20 12:18 Blood Type O POSITIVE 07/25/20 02:28 - Plan (1) Pneumonia due to 2019 novel coronavirus Status: Acute Plan: NS AT 40 ML/HR, REMDESIVIR 100MG IV DAILY, CIPRO 400MG IV Q12H, ZOSYN 4.5G IV TID, SOLU-MEDROL 80MG IV Q8H, ATIVAN 0.5MG IV Q8H PRN, PEPCID 20MG IV BID, PROTONIX 40MG IV BID, LOVENOX 40MG SC BID, DUONEBS QID, PULMICORT NEBS BID, THE POTASSIUM AND MAGNESIUM PROTOCOLS, AND DIPROVAN FOR SEDATION, HER HOME MEDICATIONS WERE RESUMED. MECHANICAL VENT (2) Hypoxia Status: Acute
[2020-07-29] MEDS: CIPRO IV 400 MG PREMIX* 400 MG/200 ML IV.SOLN. IV SCH ×2 (10:10→20:12)
[2020-07-29] MEDS ORDERED: CATAPRES-TTS-2 TD SCH ×2 (11:00)
[2020-07-29] MEDS: CATAPRES-TTS-3 TD SCH (16:43)
[2020-07-29] MEDS: ATIVAN INJ 2 MG VIAL IVP PRN (17:58)
[2020-07-29] MEDS ORDERED: APRESOLINE INJ 20 MG VIAL IVP ONE (20:45)
[2020-07-29] MEDS ORDERED: APRESOLINE INJ 20 MG VIAL ONE (21:13)
[2020-07-29] MEDS ORDERED: NS 500 ML IV 500 ML IV ONE (21:41)
[2020-07-30] MEDS: SOLU-Medrol 40 MG VIAL IVP SCH ×3 (06:12→21:13)
[2020-07-30] MEDS: DIPRIVAN PREMIX 1 GRAM IV 1,000 MG/100 ML VIAL IV PRN ×2 (06:12→14:02)
[2020-07-30] MEDS: ZOSYN VIAL 4.5 GRAMS 4.5 G in NS 100 ML IV + SPIKE MINIBAG* 100 ML IV SCH ×3 (06:12→21:14)
[2020-07-30 06:24] LABS: BASOPHILS % (AUTO) 0.2 % (0.2-1.0); HEMATOCRIT 30.6 % (36.0-47.0); HEMOGLOBIN 11.1 g/dL (12.0-16.0); LYMPHOCYTES # (AUTO) 0.9 X10^3/uL (1.3-2.9); LYMPHOCYTES % (AUTO) 10.5 % (21.0-51.0); MEAN CORPUSCULAR HEMOGLOBIN 39.7 pg (27.0-34.0); MEAN CORPUSCULAR HGB CONC 36.4 g/dL (33.0-35.0); MEAN PLATELET VOLUME 8.5 fL (7.4-11.0); MONOCYTES # (AUTO) 0.4 x10^3/uL (0.3-0.8); NEUTROPHILS # (AUTO) 7.3 x10^3/uL (2.2-4.8); NEUTROPHILS % (AUTO) 84.3 % (42.0-75.0); PLATELET COUNT 213 X10^3/uL (150.0-450.0); RED CELL DISTRIBUTION WIDTH 12.7 % (11.6-16.5); WHITE BLOOD COUNT 8.6 X10^3/uL (3.6-10.0)
[2020-07-30 06:40] LABS: ALANINE AMINOTRANSFERASE 123 Units/L (12-78); ALKALINE PHOSPHATASE 70 Units/L (46-116); ASPARTATE AMINO TRANSFERASE 62 Units/L (15-37); BLOOD UREA NITROGEN 27 mg/dL (7-18); CALCIUM 8.7 mg/dL (8.5-10.1); CARBON DIOXIDE 22.1 mmol/L (21-32); CHLORIDE 110 mmol/L (98-107); COR CA(FOR HYPOALB) 10.3 mg/dL (8.5-10.1); COR NA(FOR HYPERGLY) 149 mmol/L (136-145); CREATININE 0.58 mg/dL (0.55-1.02); SODIUM 144 mmol/L (136-145); TOTAL PROTEIN 5.4 g/dL (6.4-8.2); eGFR NON BLACK RACES > 60 (>60)
[2020-07-30 07:01] LABS: PLATELET MORPHOLOGY COMMENT NORMAL (NORMAL)
--- NOTE | 2020-07-30 07:20 | RAD ---
HISTORYSOBSTUDYCHEST, 1 [id number] support apparatus. Stable cardiomediastinal silhouette. Patchy multifocal pulmonary opacities not significantly changed. No sizable effusion or visible pneumothorax. No acute osseous finding.IMPRESSIONNo significant interval change.Electronically signed by: Corey Kc (Jul 30, 2020 07:19:19)
[2020-07-30] MEDS: PEPCID 20 MG IV PREMIX* 20 MG/50 ML BAG IV SCH ×2 (08:52→20:51)
[2020-07-30] MEDS: LOVENOX INJ 40 MG SYR SC SCH ×2 (08:52→20:51)
[2020-07-30] MEDS: CIPRO IV 400 MG PREMIX* 400 MG/200 ML IV.SOLN. IV SCH ×2 (08:52→20:50)
[2020-07-30] MEDS: PROTONIX INJ 40 MG VIAL IVP SCH ×2 (08:54→20:52)
[2020-07-30] MEDS: ATIVAN INJ 2 MG VIAL IVP PRN ×2 (08:57→20:00)
[2020-07-30] MEDS: APRESOLINE INJ 20 MG VIAL IVP PRN (08:59)
[2020-07-30] MEDS: PULMICORT NEB TX 0.5 MG NEB SCH ×2 (09:00→21:20)
[2020-07-30] MEDS: DUONEB 0.5 MG/3 MG (3 mL) NEB SCH ×4 (09:00→21:20)
[2020-07-30] MEDS: DECADRON JET NEB (RESP USE) NEB SCH ×2 (09:00→21:20)
[2020-07-30] MEDS: MORPHINE SULFATE PCA 30 MG IVP PRN (09:20)
[2020-07-30] MEDS: LACRI-LUBE S.O.P. AFFEYE SCH ×2 (09:50→20:51)
[2020-07-30] MEDS: PROCALAMINE 3 % 1,000 ML IV SCH (10:25)
[2020-07-30] MEDS: NS 1000 ML 1,000 ML IV SCH (10:25)
[2020-07-30] MEDS: VERSED 100 MG in NS 100 ML IV 80 ML IV PRN ×2 (11:04→22:27)
--- NOTE | 2020-07-30 12:14 | PCM.PROG ---
Progress Note Progress Note for Day of Date of Exam: 07/30/20 Subjective Subjective: Patient seen at bedside. Overnight, patients BP was elevated, DBP in 200s. She received several doses of hydralazine and this morning it is in 140- 150s. She was slightly agitated earlier and got a dose of Ativan. She is being treated for acute respiratory failure 2/2 to COVID-19 pneumonia requiring mechanical ventilation. Labs: WBC 8.6 Hgb 11.1 AST/ALT 62/123 CRP 15.20 CXR: patchy multifocal opacities Vent settings: FiO2 30%, PEEP 8, RR 18 Plan: wean off vent as tolerated, continue IV abx and solumedrol. Completed course of Remdesivir. Continue sedation and DVT ppx with lovenox. Patient is getting ProCal for nutrition. Monitor AM labs, ABG and CXR. Patient remains in a critical state. Time spent for clinical assessment, physical examination, reviewing labs/imaging , decision making and documentation more than 75 mins. Past Medical Family Social History Past Med/Fam/Surg Hx: No changes since H&P Allergies: Allergies codeine Allergy (Verified 07/22/20 11:49) meperidine [From Demerol] Allergy (Verified 07/22/20 11:49) Tetanus Vaccines and Toxoid Allergy (Verified 07/22/20 11:49) Review of Systems ROS: No change since H&P Vital Signs and I&O's Vital Signs: Temperature 97.5 F Pulse Rate [Right Brachial] 69 Pulse Rate 81 Respiratory Rate 20 Blood Pressure [Left Radial 173/90 Artery] Blood Pressure [Right Arm] 192/88 Blood Pressure 141/62 O2 Sat by Pulse Oximetry 91 Intake and Output: Intake & Output 07/27/20 07/28/20 07/29/20 07/30/20 23:59 23:59 23:59 23:59 Intake Total 3039.00 / 3039.00 3803 / 3803 3226 / 3226 1186 / 1186 Output Total 1675 / 1675 1125 / 1125 2675 / 2675 500 / 500 Balance 1364.00 / 1364.00 2678 / 2678 551 / 551 686 / 686 Physical Exam Oriented: Unable to test Eyes: Normal Ear: Normal Nose: Normal Throat: Normal Respiratory: Generalized and Diminished Cardiovascular: Normal Auscultation: Bowel Sounds: Normal Tenderness: Normal Skin: Normal Musculoskeletal: Normal Psychiatric: Normal Mood Description: Calm Affect: Normal Speech Pattern: Artificially Ventilated Laboratory and Diagnostics Result Diagrams: 07/30/20 04:13 07/30/20 04:13 Labs: 07/22/20 11:53 Blood Blood Culture - Final 07/22/20 12:02 Blood Blood Culture - Final 07/24/20 22:37 Sputum - Endotracheal Wash Sputum Culture - Final 07/24/20 22:37 Sputum - Endotracheal Wash - Final 07/22/20 12:18 Sputum - Expectorated Sputum Sputum Culture - Final 07/22/20 12:18 Sputum - Expectorated Sputum - Final Laboratory WBC 8.6 X10^3/uL (3.6-10.0) 07/30/20 04:13 RBC 2.80 X10^6/uL (3.5-5.4) L 07/30/20 04:13 Hgb 11.1 g/dL (12.0-16.0) L 07/30/20 04:13 Hct 30.6 % (36.0-47.0) L 07/30/20 04:13 MCV 109.0 fL (80.0-100.0) H 07/30/20 04:13 MCH 39.7 pg (27.0-34.0) H 07/30/20 04:13 MCHC 36.4 g/dL (33.0-35.0) H 07/30/20 04:13 RDW 12.7 % (11.6-16.5) 07/30/20 04:13 Plt Count 213 X10^3/uL (150.0-450.0) 07/30/20 04:13 Plt Count Comment Adequate (ADEQUATE) 07/30/20 04:13 MPV 8.5 fL (7.4-11.0) 07/30/20 04:13 Neut % (Auto) 84.3 % (42.0-75.0) H 07/30/20 04:13 Lymph % (Auto) 10.5 % (21.0-51.0) L 07/30/20 04:13 [place] % (Auto) 5.0 % (0.0-13.0) 07/30/20 04:13 Eos % (Auto) 0.0 % (0.9-2.9) L 07/30/20 04:13 Baso % (Auto) 0.2 % (0.2-1.0) 07/30/20 04:13 Neut # (Auto) 7.3 x10^3/uL (2.2-4.8) H 07/30/20 04:13 Lymph # (Auto) 0.9 X10^3/uL (1.3-2.9) L 07/30/20 04:13 [place] # (Auto) 0.4 x10^3/uL (0.3-0.8) 07/30/20 04:13 Eos # (Auto) 0.0 x10^3/uL (0.0-0.2) 07/30/20 04:13 Baso # (Auto) 0.0 X10^3/uL (0.0-0.1) 07/30/20 04:13 Absolute Nucleated RBC 0.1 /100WBC 07/30/20 04:13 Plt Morphology Comment Normal (NORMAL) 07/30/20 04:13 RBC Morphology Abnormal (NORMAL) A 07/30/20 04:13 Hypochromasia Slight A 07/29/20 04:13 Macrocytosis 1+ A 07/30/20 04:13 D-Dimer 3.50 ug/ml (0.0-0.57) H* 07/30/20 04:13 Sample Site Artline 07/29/20 05:08 ABG pH 7.500 (7.35-7.45) H 07/29/20 05:08 ABG pCO2 33.0 mmHg (35.0-45.0) L 07/29/20 05:08 ABG pO2 71.0 mmHg (80.0-100.0) L 07/29/20 05:08 ABG HCO3 25.7 mmol/L (22-26) 07/29/20 05:08 ABG O2 Saturation 95.0 % (90-100) 07/29/20 05:08 ABG Base Excess 2.8 mmol/L (-2.0-2.0) H 07/29/20 05:08 Alex Test Na 07/29/20 05:08 A-a Gradient 137.0 mmHg 07/29/20 05:08 FiO2 35.0 07/29/20 05:08 Blood Gas Comments Marie abg well-mtf 07/29/20 05:08 Sodium 144 mmol/L (136-145) 07/30/20 04:13 Corrected Sodium 149 mmol/L (136-145) H 07/30/20 04:13 Potassium 4.0 mmol/L (3.5-5.1) 07/30/20 04:13 Chloride 110 mmol/L (98-107) H 07/30/20 04:13 Carbon Dioxide 22.1 mmol/L (21-32) 07/30/20 04:13 BUN 27 mg/dL (7-18) H 07/30/20 04:13 Creatinine 0.58 mg/dL (0.55-1.02) 07/30/20 04:13 Est GFR (MDRD) Af Amer > 60 (>60) 07/30/20 04:13 Est GFR (MDRD) Non-Af > 60 (>60) 07/30/20 04:13 Glucose 316 mg/dL (65-99) H 07/30/20 04:13 Calcium 8.7 mg/dL (8.5-10.1) 07/30/20 04:13 Corrected Calcium 10.3 mg/dL (8.5-10.1) H 07/30/20 04:13 Magnesium 2.4 mg/dL (1.7-2.9) 07/26/20 04:56 Ferritin 1601 ng/mL (8-252) H 07/30/20 04:13 Total Bilirubin 1.40 mg/dL (0.2-1.0) H 07/30/20 04:13 AST 62 Units/L (15-37) H 07/30/20 04:13 ALT 123 Units/L (12-78) H 07/30/20 04:13 Alkaline Phosphatase 70 Units/L (46-116) 07/30/20 04:13 Creatine Kinase 330 Units/L (26-192) H 07/22/20 11:53 CK-MB (CK-2) 1.6 ng/mL (0-4.0) 07/22/20 11:53 CK/CKMB % Calc 0.5 % (<4) 07/22/20 11:53 Troponin I 0.04 ng/mL (0-1.5) 07/22/20 11:53 C-Reactive Protein 15.20 mg/L (0-3.0) H 07/30/20 04:13 B-Natriuretic Peptide 129 pg/mL (0-79) H 07/22/20 11:53 Total Protein 5.4 g/dL (6.4-8.2) L 07/30/20 04:13 Albumin 2.0 g/dL (3.4-5.0) L 07/30/20 04:13 Globulin 3.4 g/dL (2.5-4.5) 07/30/20 04:13 Prealbumin 13.5 mg/dL (18-35.7) L 07/26/20 04:56 Albumin/Globulin Ratio 0.6 Ratio (1.1-2.1) L 07/30/20 04:13 Specimen Type Catherized urine 07/24/20 20:00 Urine Color Yellow (YELLOW) 07/24/20 20:00 Urine Appearance Clear (CLEAR) 07/24/20 20:00 Urine pH 6.0 (5.0 - 8.0) 07/24/20 20:00 Ur Specific [place] 1.020 (1.000-1.030) 07/24/20 20:00 Urine Protein 2+ (NEGATIVE) 07/24/20 20:00 Urine Glucose (UA) 3+ (NEGATIVE) 07/24/20 20:00 Urine Ketones Negative (NEGATIVE) 07/24/20 20:00 Urine Occult Blood Negative (NEGATIVE) 07/24/20 20:00 Urine Nitrite Negative (NEGATIVE) 07/24/20 20:00 Urine Bilirubin Negative (NEGATIVE) 07/24/20 20:00 Urine Urobilinogen Normal (NORMAL) 07/24/20 20:00 Ur Leukocyte Esterase Negative (NEGATIVE) 07/24/20 20:00 Urine RBC 0-2 /HPF (0-3) 07/24/20 20:00 Urine WBC 0-2 /HPF (0-5) 07/24/20 20:00 Ur Squamous Epith Cells Rare /HPF (NEGATIVE) 07/24/20 20:00 Urine Bacteria Negative /HPF (NEGATIVE) 07/24/20 20:00 Urine Mucus Few /HPF (NEGATIVE) 07/24/20 20:00 Ur Culture Indicated? No/not indicated 07/24/20 20:00 SARS CoV-2 RNA Rapid CARMEN Positive (NEGATIVE) A 07/22/20 12:18 Blood Type O POSITIVE 07/25/20 02:28 Plan (1) Pneumonia due to 2019 novel coronavirus: Status: Acute (2) Acute hypoxemic respiratory failure: Status: Acute (3) On mechanically assisted ventilation: Status: Acute (4) Anemia: Status: Acute (5) Hyperglycemia: Status: Acute
[2020-07-30] MEDS: OFIRMEV IV 1000 MG VIAL 1,000 MG/100 ML VIAL IV PRN (16:51)
[2020-07-30 16:52] LABS: ABG BASE EXCESS -0.7 mmol/L (-2.0-2.0); ABG HCO3 24.2 mmol/L (22-26)
[2020-07-31] MEDS: OFIRMEV IV 1000 MG VIAL 1,000 MG/100 ML VIAL IV PRN ×2 (01:00→11:39)
[2020-07-31] MEDS: MORPHINE SULFATE PCA 30 MG IVP PRN ×2 (01:40→17:37)
[2020-07-31] MEDS: DIPRIVAN PREMIX 1 GRAM IV 1,000 MG/100 ML VIAL IV PRN ×3 (02:08→23:25)
[2020-07-31 05:32] LABS: BASOPHILS # (AUTO) 0.1 X10^3/uL (0.0-0.1); BASOPHILS % (AUTO) 0.5 % (0.2-1.0); EOSINOPHILS % (AUTO) 0.1 % (0.9-2.9); HEMOGLOBIN 11.4 g/dL (12.0-16.0); MEAN CORPUSCULAR HGB CONC 34.7 g/dL (33.0-35.0); MEAN CORPUSCULAR VOLUME 100.8 fL (80.0-100.0); MEAN PLATELET VOLUME 8.1 fL (7.4-11.0); MONOCYTES # (AUTO) 0.6 x10^3/uL (0.3-0.8); MONOCYTES % (AUTO) 4.8 % (0.0-13.0); NEUTROPHILS % (AUTO) 85.6 % (42.0-75.0); PLATELET COUNT 244 X10^3/uL (150.0-450.0); RED BLOOD COUNT 3.27 X10^6/uL (3.5-5.4); RED CELL DISTRIBUTION WIDTH 12.8 % (11.6-16.5); WHITE BLOOD COUNT 11.7 X10^3/uL (3.6-10.0)
[2020-07-31 05:52] LABS: ALANINE AMINOTRANSFERASE 179 Units/L (12-78); ALBUMIN 2.1 g/dL (3.4-5.0); ALKALINE PHOSPHATASE 81 Units/L (46-116); ASPARTATE AMINO TRANSFERASE 112 Units/L (15-37); BLOOD UREA NITROGEN 25 mg/dL (7-18); CALCIUM 8.6 mg/dL (8.5-10.1); CARBON DIOXIDE 24.2 mmol/L (21-32); CHLORIDE 107 mmol/L (98-107); COR CA(FOR HYPOALB) 10.1 mg/dL (8.5-10.1); COR NA(FOR HYPERGLY) 146 mmol/L (136-145); CREATININE 0.61 mg/dL (0.55-1.02); SODIUM 141 mmol/L (136-145); TOTAL PROTEIN 5.5 g/dL (6.4-8.2); eGFR NON BLACK RACES > 60 (>60)
[2020-07-31] MEDS: SOLU-Medrol 40 MG VIAL IVP SCH (05:56)
[2020-07-31] MEDS: ZOSYN VIAL 4.5 GRAMS 4.5 G in NS 100 ML IV + SPIKE MINIBAG* 100 ML IV SCH ×3 (05:57→22:00)
[2020-07-31 06:44] LABS: ABG HCO3 25.5 mmol/L (22-26)
--- NOTE | 2020-07-31 07:57 | RAD ---
HISTORYcovidSTUDYPortable AP [id number] size is similar and upper normal. Persistent airspace disease is again noted with slight interval improvement especially in the upper lobes. There is no new pulmonary or pleural abnormality demonstrated. ET tube is in mid trachea, the tip 3.8 cm above the ivis. Right IJ line extends to the right atrium.IMPRESSIONPersistent bilateral pneumonia with slight interval improvement since 1 day prior.Electronically signed by: JOSE CUEVA (Jul 31, 2020 07:55:50)
[2020-07-31] MEDS: APRESOLINE INJ 20 MG VIAL IVP PRN ×2 (08:46→11:17)
[2020-07-31] MEDS: CIPRO IV 400 MG PREMIX* 400 MG/200 ML IV.SOLN. IV SCH ×2 (09:08→20:31)
[2020-07-31] MEDS: LOVENOX INJ 40 MG SYR SC SCH ×2 (09:08→20:31)
[2020-07-31] MEDS: LACRI-LUBE S.O.P. AFFEYE SCH ×2 (09:09→20:31)
[2020-07-31] MEDS: PROTONIX INJ 40 MG VIAL IVP SCH ×2 (09:10→20:32)
[2020-07-31] MEDS: PEPCID 20 MG IV PREMIX* 20 MG/50 ML BAG IV SCH ×2 (09:25→20:32)
[2020-07-31] MEDS: DECADRON JET NEB (RESP USE) NEB SCH ×2 (09:50→20:30)
[2020-07-31] MEDS: DUONEB 0.5 MG/3 MG (3 mL) NEB SCH ×4 (09:50→20:30)
[2020-07-31] MEDS: PULMICORT NEB TX 0.5 MG NEB SCH ×2 (09:50→20:30)
[2020-07-31] MEDS: VERSED 100 MG in NS 100 ML IV 80 ML IV PRN ×2 (11:12→20:46)
[2020-07-31 11:50] LABS: BILIRUBIN,URINE NEGATIVE (NEGATIVE); BLOOD/HEMOGLOBIN,URINE 5+ (NEGATIVE); GLUCOSE, URINE 4+ (NEGATIVE); KETONES,URINE 3+ (NEGATIVE); LEUKOCYTE ESTERASE ,URINE NEGATIVE (NEGATIVE); NITRITES,URINE NEGATIVE (NEGATIVE); PROTEIN,URINE 2+ (NEGATIVE); UROBILINOGEN,URINE NORMAL (NORMAL)
[2020-07-31] MEDS: PROCALAMINE 3 % 1,000 ML IV SCH (11:54)
[2020-07-31 12:02] LABS: APPEARANCE,URINE HAZY (CLEAR); BACTERIA,URINE NEGATIVE /HPF (NEGATIVE); COLOR,URINE YELLOW (YELLOW); MUCUS,URINE FEW /HPF (NEGATIVE); RBC,URINE TNTC /HPF (0-3); SQUAMOUS EPITHELIAL CELL,UR RARE /HPF (NEGATIVE)
--- NOTE | 2020-07-31 12:24 | PCM.PROG ---
Progress Note Progress Note for Day of Date of Exam: 07/31/20 Subjective Subjective: Patient seen at bedside. Overnight, patient did have fever, Tmax 101.6. Her BP is still elevated, SBP in 160s, HR in 90-low 100s. She was tried to be weaned off sedation yesterday but had elevated HR, BP and was noted to have drop in saturations so it was turned up again. She is currently on Versed, propofol and Morphine. Patient does get agitated at times and moves her head. She is being treated for acute respiratory failure 2/2 to COVID-19 pneumonia requiring mechanical ventilation. Labs: WBC 11.7 Hgb 11.4 AST/ALT 112/79 CRP 13 CXR: persistent bilateral pneumonia, slight improvement. Vent settings: FiO2 35%, PEEP 8, RR 18 Plan: wean off vent as tolerated, continue IV abx and taper solumedrol. Completed course of Remdesivir. Repeat blood Cx and UA. Will add Labetalol prn for SBP> 160. Stop Hydralazine. Continue clonidine patch. DC IVF. Hold off on weaning down sedation. Monitor AM labs, ABG and CXR. Patient remains in a critical state. Time spent for clinical assessment, physical examination, reviewing labs/imaging , decision making and documentation more than 75 mins. Past Medical Family Social History Past Med/Fam/Surg Hx: No changes since H&P Allergies: Allergies codeine Allergy (Verified 07/22/20 11:49) meperidine [From Demerol] Allergy (Verified 07/22/20 11:49) Tetanus Vaccines and Toxoid Allergy (Verified 07/22/20 11:49) Review of Systems ROS: No change since H&P Vital Signs and I&O's Vital Signs: Temperature 100.5 F Pulse Rate [Right Brachial] 64 Pulse Rate 107 Respiratory Rate 20 Blood Pressure [Left Radial 156/68 Artery] Blood Pressure [Right Arm] 192/85 Blood Pressure 141/62 O2 Sat by Pulse Oximetry 93 Intake and Output: Intake & Output 07/28/20 07/29/20 07/30/20 07/31/20 23:59 23:59 23:59 23:59 Intake Total 3803 / 3803 3226 / 3226 2916 / 2916 1860 / 1860 Output Total 1125 / 1125 2675 / 2675 3550 / 3550 900 / 900 Balance 2678 / 2678 551 / 551 -634 / -634 960 / 960 Physical Exam Oriented: Unable to test Eyes: Normal Ear: Normal Nose: Normal Throat: Normal Respiratory: Generalized, Diminished and Wheezes Cardiovascular: Tachycardia and Edema Auscultation: Bowel Sounds: Normal Tenderness: Normal Skin: Normal Musculoskeletal: Normal Psychiatric: Normal Mood Description: Calm Affect: Normal Speech Pattern: Artificially Ventilated Laboratory and Diagnostics Result Diagrams: 07/31/20 04:25 07/31/20 04:25 Labs: 07/22/20 11:53 Blood Blood Culture - Final 07/22/20 12:02 Blood Blood Culture - Final 07/24/20 22:37 Sputum - Endotracheal Wash Sputum Culture - Final 07/24/20 22:37 Sputum - Endotracheal Wash - Final 07/22/20 12:18 Sputum - Expectorated Sputum Sputum Culture - Final 07/22/20 12:18 Sputum - Expectorated Sputum - Final Laboratory WBC 11.7 X10^3/uL (3.6-10.0) H 07/31/20 04:25 RBC 3.27 X10^6/uL (3.5-5.4) L 07/31/20 04:25 Hgb 11.4 g/dL (12.0-16.0) L 07/31/20 04:25 Hct 33.0 % (36.0-47.0) L 07/31/20 04:25 MCV 100.8 fL (80.0-100.0) H 07/31/20 04:25 MCH 35.0 pg (27.0-34.0) H 07/31/20 04:25 MCHC 34.7 g/dL (33.0-35.0) 07/31/20 04:25 RDW 12.8 % (11.6-16.5) 07/31/20 04:25 Plt Count 244 X10^3/uL (150.0-450.0) 07/31/20 04:25 Plt Count Comment Adequate (ADEQUATE) 07/30/20 04:13 MPV 8.1 fL (7.4-11.0) 07/31/20 04:25 Neut % (Auto) 85.6 % (42.0-75.0) H 07/31/20 04:25 Lymph % (Auto) 9.0 % (21.0-51.0) L 07/31/20 04:25 [place] % (Auto) 4.8 % (0.0-13.0) 07/31/20 04:25 Eos % (Auto) 0.1 % (0.9-2.9) L 07/31/20 04:25 Baso % (Auto) 0.5 % (0.2-1.0) 07/31/20 04:25 Neut # (Auto) 10.0 x10^3/uL (2.2-4.8) H 07/31/20 04:25 Lymph # (Auto) 1.0 X10^3/uL (1.3-2.9) L 07/31/20 04:25 [place] # (Auto) 0.6 x10^3/uL (0.3-0.8) 07/31/20 04:25 Eos # (Auto) 0.0 x10^3/uL (0.0-0.2) 07/31/20 04:25 Baso # (Auto) 0.1 X10^3/uL (0.0-0.1) 07/31/20 04:25 Absolute Nucleated RBC 0.0 /100WBC 07/31/20 04:25 Plt Morphology Comment Normal (NORMAL) 07/30/20 04:13 RBC Morphology Abnormal (NORMAL) A 07/30/20 04:13 Hypochromasia Slight A 07/29/20 04:13 Macrocytosis 1+ A 07/30/20 04:13 D-Dimer 3.50 ug/ml (0.0-0.57) H* 07/30/20 04:13 Sample Site Artline 07/31/20 06:42 ABG pH 7.470 (7.35-7.45) H 07/31/20 06:42 ABG pCO2 35.0 mmHg (35.0-45.0) 07/31/20 06:42 ABG pO2 61.0 mmHg (80.0-100.0) L 07/31/20 06:42 ABG HCO3 25.5 mmol/L (22-26) 07/31/20 06:42 ABG O2 Saturation 93.0 % (90-100) 07/31/20 06:42 ABG Base Excess 2.0 mmol/L (-2.0-2.0) 07/31/20 06:42 Alex Test Na 07/31/20 06:42 A-a Gradient 145.0 mmHg 07/31/20 06:42 FiO2 35.0 07/31/20 06:42 Blood Gas Comments Marie well 07/31/20 06:42 Sodium 141 mmol/L (136-145) 07/31/20 04:25 Corrected Sodium 146 mmol/L (136-145) H 07/31/20 04:25 Potassium 4.4 mmol/L (3.5-5.1) 07/31/20 04:25 Chloride 107 mmol/L (98-107) 07/31/20 04:25 Carbon Dioxide 24.2 mmol/L (21-32) 07/31/20 04:25 BUN 25 mg/dL (7-18) H 07/31/20 04:25 Creatinine 0.61 mg/dL (0.55-1.02) 07/31/20 04:25 Est GFR (MDRD) Af Amer > 60 (>60) 07/31/20 04:25 Est GFR (MDRD) Non-Af > 60 (>60) 07/31/20 04:25 Glucose 300 mg/dL (65-99) H 07/31/20 04:25 Calcium 8.6 mg/dL (8.5-10.1) 07/31/20 04:25 Corrected Calcium 10.1 mg/dL (8.5-10.1) 07/31/20 04:25 Magnesium 2.4 mg/dL (1.7-2.9) 07/26/20 04:56 Ferritin 1601 ng/mL (8-252) H 07/30/20 04:13 Total Bilirubin 2.10 mg/dL (0.2-1.0) H 07/31/20 04:25 AST 112 Units/L (15-37) H 07/31/20 04:25 ALT 179 Units/L (12-78) H 07/31/20 04:25 Alkaline Phosphatase 81 Units/L (46-116) 07/31/20 04:25 Creatine Kinase 330 Units/L (26-192) H 07/22/20 11:53 CK-MB (CK-2) 1.6 ng/mL (0-4.0) 07/22/20 11:53 CK/CKMB % Calc 0.5 % (<4) 07/22/20 11:53 Troponin I 0.04 ng/mL (0-1.5) 07/22/20 11:53 C-Reactive Protein 13.40 mg/L (0-3.0) H 07/31/20 04:25 B-Natriuretic Peptide 129 pg/mL (0-79) H 07/22/20 11:53 Total Protein 5.5 g/dL (6.4-8.2) L 07/31/20 04:25 Albumin 2.1 g/dL (3.4-5.0) L 07/31/20 04:25 Globulin 3.4 g/dL (2.5-4.5) 07/31/20 04:25 Prealbumin 13.5 mg/dL (18-35.7) L 07/26/20 04:56 Albumin/Globulin Ratio 0.6 Ratio (1.1-2.1) L 07/31/20 04:25 Specimen Type Catherized urine 07/31/20 11:32 Urine Color Yellow (YELLOW) 07/31/20 11:32 Urine Appearance Hazy (CLEAR) 07/31/20 11:32 Urine pH 5.0 (5.0 - 8.0) 07/31/20 11:32 Ur Specific [place] 1.020 (1.000-1.030) 07/31/20 11:32 Urine Protein 2+ (NEGATIVE) 07/31/20 11:32 Urine Glucose (UA) 4+ (NEGATIVE) 07/31/20 11:32 Urine Ketones 3+ (NEGATIVE) 07/31/20 11:32 Urine Occult Blood 5+ (NEGATIVE) 07/31/20 11:32 Urine Nitrite Negative (NEGATIVE) 07/31/20 11:32 Urine Bilirubin Negative (NEGATIVE) 07/31/20 11:32 Urine Urobilinogen Normal (NORMAL) 07/31/20 11:32 Ur Leukocyte Esterase Negative (NEGATIVE) 07/31/20 11:32 Urine RBC Tntc /HPF (0-3) A 07/31/20 11:32 Urine WBC 3-5 /HPF (0-5) 07/31/20 11:32 Ur Squamous Epith Cells Rare /HPF (NEGATIVE) 07/31/20 11:32 Urine Bacteria Negative /HPF (NEGATIVE) 07/31/20 11:32 Urine Mucus Few /HPF (NEGATIVE) 07/31/20 11:32 Ur Culture Indicated? No/not indicated 07/31/20 11:32 SARS CoV-2 RNA Rapid CARMEN Positive (NEGATIVE) A 07/22/20 12:18 Blood Type O POSITIVE 07/25/20 02:28 Plan (1) Pneumonia due to 2019 novel coronavirus: Status: Acute Plan: NS AT 40 ML/HR, REMDESIVIR 100MG IV DAILY, CIPRO 400MG IV Q12H, ZOSYN 4.5G IV TID, SOLU-MEDROL 80MG IV Q8H, ATIVAN 0.5MG IV Q8H PRN, PEPCID 20MG IV BID, PROTONIX 40MG IV BID, LOVENOX 40MG SC BID, DUONEBS QID, PULMICORT NEBS BID, THE POTASSIUM AND MAGNESIUM PROTOCOLS, AND DIPROVAN FOR SEDATION, HER HOME MEDICATIONS WERE RESUMED. MECHANICAL VENT (2) Acute hypoxemic respiratory failure: Status: Acute (3) On mechanically assisted ventilation: Status: Acute (4) Anemia: Status: Acute (5) Hyperglycemia: Status: Acute
[2020-07-31] MEDS: SOLU-Medrol 125 MG VIAL IVP SCH (20:32)
[2020-08-01 04:57] LABS: ABG BASE EXCESS 1.5 mmol/L (-2.0-2.0); ABG HCO3 24.6 mmol/L (22-26)
[2020-08-01 05:33] LABS: BASOPHILS % (AUTO) 0.4 % (0.2-1.0); HEMATOCRIT 34.8 % (36.0-47.0); HEMOGLOBIN 11.5 g/dL (12.0-16.0); LYMPHOCYTES # (AUTO) 0.5 X10^3/uL (1.3-2.9); LYMPHOCYTES % (AUTO) 4.4 % (21.0-51.0); MEAN CORPUSCULAR HEMOGLOBIN 32.9 pg (27.0-34.0); MEAN CORPUSCULAR VOLUME 99.7 fL (80.0-100.0); MEAN PLATELET VOLUME 8.8 fL (7.4-11.0); MONOCYTES # (AUTO) 0.4 x10^3/uL (0.3-0.8); NEUTROPHILS # (AUTO) 11.5 x10^3/uL (2.2-4.8); NEUTROPHILS % (AUTO) 92.2 % (42.0-75.0); PLATELET COUNT 222 X10^3/uL (150.0-450.0); RED BLOOD COUNT 3.49 X10^6/uL (3.5-5.4); RED CELL DISTRIBUTION WIDTH 12.9 % (11.6-16.5); WHITE BLOOD COUNT 12.5 X10^3/uL (3.6-10.0)
[2020-08-01 05:53] LABS: ALANINE AMINOTRANSFERASE 169 Units/L (12-78); ALBUMIN 2.1 g/dL (3.4-5.0); ALKALINE PHOSPHATASE 87 Units/L (46-116); ASPARTATE AMINO TRANSFERASE 73 Units/L (15-37); BLOOD UREA NITROGEN 25 mg/dL (7-18); CALCIUM 8.6 mg/dL (8.5-10.1); CARBON DIOXIDE 24.4 mmol/L (21-32); CHLORIDE 106 mmol/L (98-107); COR CA(FOR HYPOALB) 10.1 mg/dL (8.5-10.1); COR NA(FOR HYPERGLY) 145 mmol/L (136-145); CREATININE 0.53 mg/dL (0.55-1.02); TOTAL PROTEIN 5.6 g/dL (6.4-8.2); eGFR NON BLACK RACES > 60 (>60)
[2020-08-01 06:01] LABS: SODIUM 140 mmol/L (136-145)
[2020-08-01] MEDS: ZOSYN VIAL 4.5 GRAMS 4.5 G in NS 100 ML IV + SPIKE MINIBAG* 100 ML IV SCH ×3 (06:26→21:08)
[2020-08-01 06:48] LABS: PLATELET MORPHOLOGY COMMENT NORMAL (NORMAL)
[2020-08-01] MEDS: LACRI-LUBE S.O.P. AFFEYE SCH ×2 (08:44→20:45)
[2020-08-01] MEDS: LOVENOX INJ 40 MG SYR SC SCH ×2 (08:44→20:45)
[2020-08-01] MEDS: PEPCID 20 MG IV PREMIX* 20 MG/50 ML BAG IV SCH ×2 (08:45→20:45)
[2020-08-01] MEDS: PROTONIX INJ 40 MG VIAL IVP SCH ×2 (08:45→20:45)
[2020-08-01] MEDS: SOLU-Medrol 125 MG VIAL IVP SCH ×2 (09:03→20:46)
--- NOTE | 2020-08-01 09:23 | RAD ---
HISTORYcovid f/uSTUDYCHEST, 1 [id number] support apparatus. Stable cardiomediastinal silhouette. Patchy multifocal bilateral pulmonary opacities appear slightly worse in the left midlung. No sizable effusion or visible pneumothorax. Right apex partially obscured by respiratory devices. No acute osseous finding.IMPRESSIONWorsening pulmonary opacities.Electronically signed by: Corey Kc (Aug 01, 2020 09:22:26)
[2020-08-01] MEDS: DUONEB 0.5 MG/3 MG (3 mL) NEB SCH ×4 (09:41→20:38)
[2020-08-01] MEDS: PULMICORT NEB TX 0.5 MG NEB SCH ×2 (09:41→20:38)
[2020-08-01] MEDS: DECADRON JET NEB (RESP USE) NEB SCH ×2 (09:41→20:38)
[2020-08-01] MEDS ORDERED: PHARMACY CONSULT - VANCOMYCIN XX SCH (10:00)
[2020-08-01] MEDS: MORPHINE SULFATE PCA 30 MG IVP PRN (10:10)
[2020-08-01] MEDS: VERSED 100 MG in NS 100 ML IV 80 ML IV PRN ×2 (10:50→21:30)
[2020-08-01] MEDS: DIPRIVAN PREMIX 1 GRAM IV 1,000 MG/100 ML VIAL IV PRN (11:10)
--- NOTE | 2020-08-01 11:52 | PCM.PROG ---
Progress Note Progress Note for Day of Date of Exam: 08/01/20 Subjective Subjective: Patient seen at bedside. Yesterday and overnight, her BP and O2 sats have been fluctuating. She did desat to mid 80s. She is currently on FiO2 50% PEEP 8 and RR 14. She has been afebrile overnight. Her BP has remained in 120- 150s. She did not receive a dose of labetalol. She is currently on Versed, propofol and Morphine. Lab reported one of her blood Cx being positive, She is being treated for acute respiratory failure 2/2 to COVID-19 pneumonia requiring mechanical ventilation. Labs: WBC 12.5 Hgb 11.4 BUN/Cr 25/0.53 AST/ALT73/169 CRP 27 CXR: worsening pulmonary opacities AB.48/33/58/24 on FiO2 50% Vent settings: FiO2 50%, PEEP 8, RR 14 UA: showed RBCs, no WBC or bacteria Plan: wean off vent as tolerated. DC Cipro and start IV Vancomycin. Continue Zosyn. Continue Solumedrol. Continue sedation. Patient received plasma on 07/28. Will order another unit today. Monitor AM labs, ABG and CXR. Follow blood Cx. Patient remains in a critical state. Time spent for clinical assessment, physical examination, reviewing labs/imaging , decision making and documentation more than 75 mins. Past Medical Family Social History Past Med/Fam/Surg Hx: No changes since H&P Allergies: Allergies codeine Allergy (Verified 07/22/20 11:49) meperidine [From Demerol] Allergy (Verified 07/22/20 11:49) Tetanus Vaccines and Toxoid Allergy (Verified 07/22/20 11:49) Review of Systems ROS: No change since H&P Vital Signs and I&O's Vital Signs: Temperature 99.5 F Pulse Rate [Right Brachial] 70 Pulse Rate 81 Respiratory Rate 20 Blood Pressure [Left Radial 140/60 Artery] Blood Pressure [Right Arm] 150/66 Blood Pressure 141/62 O2 Sat by Pulse Oximetry 87 Intake and Output: Intake & Output 07/29/20 07/30/20 07/31/20 08/01/20 23:59 23:59 23:59 23:59 Intake Total 3226 / 3226 2916 / 2916 4044 / 4044 808 / 808 Output Total 2675 / 2675 3550 / 3550 2250 / 2250 1100 / 1100 Balance 551 / 551 -634 / -634 1794 / 1794 -292 / -292 Physical Exam Oriented: Unable to test Eyes: Normal Ear: Normal Nose: Normal Throat: Normal Respiratory: Generalized, Diminished and Wheezes Cardiovascular: Normal and Edema Auscultation: Bowel Sounds: Normal Tenderness: Normal Skin: Normal Musculoskeletal: Normal Psychiatric: Normal Mood Description: Calm Affect: Normal Speech Pattern: Artificially Ventilated Laboratory and Diagnostics Result Diagrams: 08/01/20 04:20 08/01/20 04:20 Labs: 07/22/20 11:53 Blood Blood Culture - Final 07/22/20 12:02 Blood Blood Culture - Final 07/24/20 22:37 Sputum - Endotracheal Wash Sputum Culture - Final 07/24/20 22:37 Sputum - Endotracheal Wash - Final 07/22/20 12:18 Sputum - Expectorated Sputum Sputum Culture - Final 07/22/20 12:18 Sputum - Expectorated Sputum - Final Laboratory WBC 12.5 X10^3/uL (3.6-10.0) H 08/01/20 04:20 RBC 3.49 X10^6/uL (3.5-5.4) L 08/01/20 04:20 Hgb 11.5 g/dL (12.0-16.0) L 08/01/20 04:20 Hct 34.8 % (36.0-47.0) L 08/01/20 04:20 MCV 99.7 fL (80.0-100.0) 08/01/20 04:20 MCH 32.9 pg (27.0-34.0) 08/01/20 04:20 MCHC 33.0 g/dL (33.0-35.0) 08/01/20 04:20 RDW 12.9 % (11.6-16.5) 08/01/20 04:20 Plt Count 222 X10^3/uL (150.0-450.0) 08/01/20 04:20 Plt Count Comment Adequate (ADEQUATE) 08/01/20 04:20 MPV 8.8 fL (7.4-11.0) 08/01/20 04:20 Neut % (Auto) 92.2 % (42.0-75.0) H 08/01/20 04:20 Lymph % (Auto) 4.4 % (21.0-51.0) L 08/01/20 04:20 [place] % (Auto) 3.0 % (0.0-13.0) 08/01/20 04:20 Eos % (Auto) 0.0 % (0.9-2.9) L 08/01/20 04:20 Baso % (Auto) 0.4 % (0.2-1.0) 08/01/20 04:20 Neut # (Auto) 11.5 x10^3/uL (2.2-4.8) H 08/01/20 04:20 Lymph # (Auto) 0.5 X10^3/uL (1.3-2.9) L 08/01/20 04:20 [place] # (Auto) 0.4 x10^3/uL (0.3-0.8) 08/01/20 04:20 Eos # (Auto) 0.0 x10^3/uL (0.0-0.2) 08/01/20 04:20 Baso # (Auto) 0.0 X10^3/uL (0.0-0.1) 08/01/20 04:20 Absolute Nucleated RBC 0.1 /100WBC 08/01/20 04:20 Total Counted 100 08/01/20 04:20 Neutrophils % (Manual) 95 % (39-76) H 08/01/20 04:20 Lymphocytes % (Manual) 4 % (13-43) L 08/01/20 04:20 Monocytes % (Manual) 1 % (4-9) L 08/01/20 04:20 Plt Morphology Comment Normal (NORMAL) 08/01/20 04:20 RBC Morphology Normal (NORMAL) 08/01/20 04:20 Hypochromasia Slight A 07/29/20 04:13 Macrocytosis 1+ A 07/30/20 04:13 D-Dimer 3.50 ug/ml (0.0-0.57) H* 07/30/20 04:13 Sample Site [place] 08/01/20 04:50 ABG pH 7.480 (7.35-7.45) H 08/01/20 04:50 ABG pCO2 33.0 mmHg (35.0-45.0) L 08/01/20 04:50 ABG pO2 58.0 mmHg (80.0-100.0) L 08/01/20 04:50 ABG HCO3 24.6 mmol/L (22-26) 08/01/20 04:50 ABG O2 Saturation 92.0 % (90-100) 08/01/20 04:50 ABG Base Excess 1.5 mmol/L (-2.0-2.0) 08/01/20 04:50 Alex Test N/a 08/01/20 04:50 A-a Gradient 257.0 mmHg 08/01/20 04:50 FiO2 50 08/01/20 04:50 Blood Gas Comments Marie well ae 08/01/20 04:50 Sodium 140 mmol/L (136-145) 08/01/20 04:20 Corrected Sodium 145 mmol/L (136-145) 08/01/20 04:20 Potassium 4.3 mmol/L (3.5-5.1) 08/01/20 04:20 Chloride 106 mmol/L (98-107) 08/01/20 04:20 Carbon Dioxide 24.4 mmol/L (21-32) 08/01/20 04:20 BUN 25 mg/dL (7-18) H 08/01/20 04:20 Creatinine 0.53 mg/dL (0.55-1.02) L 08/01/20 04:20 Est GFR (MDRD) Af Amer > 60 (>60) 08/01/20 04:20 Est GFR (MDRD) Non-Af > 60 (>60) 08/01/20 04:20 Glucose 297 mg/dL (65-99) H 08/01/20 04:20 Calcium 8.6 mg/dL (8.5-10.1) 08/01/20 04:20 Corrected Calcium 10.1 mg/dL (8.5-10.1) 08/01/20 04:20 Magnesium 2.4 mg/dL (1.7-2.9) 07/26/20 04:56 Ferritin 1601 ng/mL (8-252) H 07/30/20 04:13 Total Bilirubin 2.00 mg/dL (0.2-1.0) H 08/01/20 04:20 AST 73 Units/L (15-37) H 08/01/20 04:20 ALT 169 Units/L (12-78) H 08/01/20 04:20 Alkaline Phosphatase 87 Units/L (46-116) 08/01/20 04:20 Creatine Kinase 330 Units/L (26-192) H 07/22/20 11:53 CK-MB (CK-2) 1.6 ng/mL (0-4.0) 07/22/20 11:53 CK/CKMB % Calc 0.5 % (<4) 07/22/20 11:53 Troponin I 0.04 ng/mL (0-1.5) 07/22/20 11:53 C-Reactive Protein 27.70 mg/L (0-3.0) H 08/01/20 04:20 B-Natriuretic Peptide 129 pg/mL (0-79) H 07/22/20 11:53 Total Protein 5.6 g/dL (6.4-8.2) L 08/01/20 04:20 Albumin 2.1 g/dL (3.4-5.0) L 08/01/20 04:20 Globulin 3.5 g/dL (2.5-4.5) 08/01/20 04:20 Prealbumin 13.5 mg/dL (18-35.7) L 07/26/20 04:56 Albumin/Globulin Ratio 0.6 Ratio (1.1-2.1) L 08/01/20 04:20 Specimen Type Catherized urine 07/31/20 11:32 Urine Color Yellow (YELLOW) 07/31/20 11:32 Urine Appearance Hazy (CLEAR) 07/31/20 11:32 Urine pH 5.0 (5.0 - 8.0) 07/31/20 11:32 Ur Specific [place] 1.020 (1.000-1.030) 07/31/20 11:32 Urine Protein 2+ (NEGATIVE) 07/31/20 11:32 Urine Glucose (UA) 4+ (NEGATIVE) 07/31/20 11:32 Urine Ketones 3+ (NEGATIVE) 07/31/20 11:32 Urine Occult Blood 5+ (NEGATIVE) 07/31/20 11:32 Urine Nitrite Negative (NEGATIVE) 07/31/20 11:32 Urine Bilirubin Negative (NEGATIVE) 07/31/20 11:32 Urine Urobilinogen Normal (NORMAL) 07/31/20 11:32 Ur Leukocyte Esterase Negative (NEGATIVE) 07/31/20 11:32 Urine RBC Tntc /HPF (0-3) A 07/31/20 11:32 Urine WBC 3-5 /HPF (0-5) 07/31/20 11:32 Ur Squamous Epith Cells Rare /HPF (NEGATIVE) 07/31/20 11:32 Urine Bacteria Negative /HPF (NEGATIVE) 07/31/20 11:32 Urine Mucus Few /HPF (NEGATIVE) 07/31/20 11:32 Ur Culture Indicated? No/not indicated 07/31/20 11:32 SARS CoV-2 RNA Rapid CARMEN Positive (NEGATIVE) A 07/22/20 12:18 Blood Type O POSITIVE 07/25/20 02:28 Plan (1) Pneumonia due to 2019 novel coronavirus: Status: Acute (2) Acute hypoxemic respiratory failure: Status: Acute (3) On mechanically assisted ventilation: Status: Acute (4) Anemia: Status: Acute (5) Hyperglycemia: Status: Acute
[2020-08-01] MEDS: PROCALAMINE 3 % 1,000 ML IV SCH (12:40)
[2020-08-01] MEDS: VANCOMYCIN IV *PREMIX 1 G/200 ML BAG 1 G/200 ML PIGGYBACK IV SCH ×2 (13:16→20:46)
--- NOTE | 2020-08-01 17:37 | PCM.PROG ---
Progress Note - Progress Note for Day of Date of Exam: 07/29/20 - Subjective Subjective: WAS ADMITTED FOR TREATMENT OF PNEUMONIA DUE TO COVID-19, RESPIRATORY FAILURE, AND HYPOXIA. SHE REMAINS ON THE MECHANICAL VENT THIS MORNING. HER SETTINGS ARE FOLLOWS: A/C, VENT RATE 20, TIDAL VOLUME 550, PEEP 15, PEAK FLOW 45, PEEP 15, FI02 30. HER OXYGEN SATURATIONS ON THE BIPAP HAVE BEEN 91-94% ON THE VENT THIS MORNING. HER BLOOD PRESSURE HAS BEEN SLIGHTLY MORE ELEVATED THROUGHOUT THE NIGHT WITH SYSTOLIC BLOOD PRESSURES BEING IN THE 180s. ON EXAMINATION, SHE CONTINUES TO BE BRADYCARDIC WITH HR IN THE 50s. BILATERAL LUNGS NOTED WITH RALES THROUGHOUT. ABDOMEN IS ROUND, SOFT, AND NON-TENDER WITH NORMAL BOWEL SOUNDS NOTED IN ALL QUADRANTS. HER VITALS THIS MORNING ARE: 99.3-61-20-94%-129/60. LABS WERE OBTAINED. ABNORMAL LAB VALUES INCLUDE THE FOLLOWING: RBC 2.81, HGB 10.8, HCT 30.2, SODIUM 146, CHLORIDE 108, BUN 25, GLUCOSE 302, CALCIUM 8.4, FERRITIN 957, AST 48, ALT 88, CRP 21.80, TOTAL PROTEIN 5.6, ALBUMIN 2.2. AN ABG WAS OBTAINED THIS MORNING AND REVEALED: PH 7.500, PC02 33, P02 71, HC03 25.7, 02 95, FI02 35. A CHEST XRAY WAS OBTAINED AND REVEALED: There is an endotracheal tube in good position. There is a right IJ line in good position. The heart remains within normal limits in size. Diffuse bilateral interstitial, ground glass and patchy alveolar infiltrates are again identified not significantly changed from the prior examination. No pleural effusions are identified. Bony thorax is unremarkable. SHE IS CURRENTLY RECEIVING NS AT 40 ML/HR, PROCAL AT 40 ML/HR, CIPRO 400MG IV BID, ZOSYN 4.5G IV TID, SOLU-MEDROL 80MG IV Q8H, ATIVAN 0.5MG IV Q8H PRN, PEPCID 20MG IV BID, PROTONIX 40MG IV BID, LOVENOX 40MG SC BID, DUONEBS QID, PULMICORT NEBS BID, THE POTASSIUM AND MAGNESIUM PROTOCOLS, AND DIPROVAN AND VERSED FOR SEDATION. HER HOME MEDICATIONS WERE RESUMED. WE WILL ADD A CLONIDINE PATCH TODAY DUE TO INCREASED BLOOD PRESSURE. OTHERWISE, WE WILL CONTINUE WITH CURRENT PLAN OF CARE TODAY. WE WILL CONTINUE TO ATTEMPT TO WEAN FROM THE VENT. WE WILL FOLLOW UP WITH AM LABS, CHEST XRAY, ABG, AND CONTINUE TO MONITOR. TIME SPENT ON CLINICAL ASSESSMENT, PHYSICAL EXAMINATION, REVIEWING LABS/IMAGING, DECISION MAKING, AND DOCUMENTATION MORE THAN 75 MINUTES. - Past Medical Family Social History Past Med/Fam/Surg Hx: No changes since H&P Allergies: Allergies codeine Allergy (Verified 07/22/20 11:49) meperidine [From Demerol] Allergy (Verified 07/22/20 11:49) Tetanus Vaccines and Toxoid Allergy (Verified 07/22/20 11:49) - Review of Systems ROS: No change since H&P - Vital Signs and I&O's Vital Signs: Temperature 99.7 F Pulse Rate [Right Brachial] 95 Pulse Rate 85 Respiratory Rate 22 Blood Pressure [Left Radial 133/22 Artery] Blood Pressure [Right Arm] 166/74 Blood Pressure 141/62 O2 Sat by Pulse Oximetry 93 Intake and Output: Intake & Output 07/30/20 07/31/20 08/01/20 08/02/20 11:59 11:59 11:59 11:59 Intake Total 3358 / 3358 3590 / 3590 2992 / 3032 883 / 883 Output Total 2375 / 2375 3950 / 3950 2450 / 3150 1250 / 1250 Balance 983 / 983 -360 / -360 542 / -118 -367 / -367 - Physical Exam Oriented: Unable to test Eyes: Normal Ear: Normal Nose: Normal Throat: Normal Respiratory: Generalized, Diminished, Wheezes Cardiovascular: Bradycardia : Normal Auscultation: Bowel Sounds: Normal Palpation: Normal Tenderness: Normal Skin: Normal Musculoskeletal: Normal Psychiatric: Normal Mood Description: Calm Affect: Normal Speech Pattern: Artificially Ventilated - Laboratory and Diagnostics Result Diagrams: 08/01/20 04:20 08/01/20 04:20 Labs: 07/22/20 11:53 Blood Blood Culture - Final 07/22/20 12:02 Blood Blood Culture - Final 07/24/20 22:37 Sputum - Endotracheal Wash Sputum Culture - Final 07/24/20 22:37 Sputum - Endotracheal Wash - Final 07/22/20 12:18 Sputum - Expectorated Sputum Sputum Culture - Final 07/22/20 12:18 Sputum - Expectorated Sputum - Final Laboratory WBC 12.5 X10^3/uL (3.6-10.0) H 08/01/20 04:20 RBC 3.49 X10^6/uL (3.5-5.4) L 08/01/20 04:20 Hgb 11.5 g/dL (12.0-16.0) L 08/01/20 04:20 Hct 34.8 % (36.0-47.0) L 08/01/20 04:20 MCV 99.7 fL (80.0-100.0) 08/01/20 04:20 MCH 32.9 pg (27.0-34.0) 08/01/20 04:20 MCHC 33.0 g/dL (33.0-35.0) 08/01/20 04:20 RDW 12.9 % (11.6-16.5) 08/01/20 04:20 Plt Count 222 X10^3/uL (150.0-450.0) 08/01/20 04:20 Plt Count Comment Adequate (ADEQUATE) 08/01/20 04:20 MPV 8.8 fL (7.4-11.0) 08/01/20 04:20 Neut % (Auto) 92.2 % (42.0-75.0) H 08/01/20 04:20 Lymph % (Auto) 4.4 % (21.0-51.0) L 08/01/20 04:20 [place] % (Auto) 3.0 % (0.0-13.0) 08/01/20 04:20 Eos % (Auto) 0.0 % (0.9-2.9) L 08/01/20 04:20 Baso % (Auto) 0.4 % (0.2-1.0) 08/01/20 04:20 Neut # (Auto) 11.5 x10^3/uL (2.2-4.8) H 08/01/20 04:20 Lymph # (Auto) 0.5 X10^3/uL (1.3-2.9) L 08/01/20 04:20 [place] # (Auto) 0.4 x10^3/uL (0.3-0.8) 08/01/20 04:20 Eos # (Auto) 0.0 x10^3/uL (0.0-0.2) 08/01/20 04:20 Baso # (Auto) 0.0 X10^3/uL (0.0-0.1) 08/01/20 04:20 Absolute Nucleated RBC 0.1 /100WBC 08/01/20 04:20 Total Counted 100 08/01/20 04:20 Neutrophils % (Manual) 95 % (39-76) H 08/01/20 04:20 Lymphocytes % (Manual) 4 % (13-43) L 08/01/20 04:20 Monocytes % (Manual) 1 % (4-9) L 08/01/20 04:20 Plt Morphology Comment Normal (NORMAL) 08/01/20 04:20 RBC Morphology Normal (NORMAL) 08/01/20 04:20 Hypochromasia Slight A 07/29/20 04:13 Macrocytosis 1+ A 07/30/20 04:13 D-Dimer 3.50 ug/ml (0.0-0.57) H* 07/30/20 04:13 Sample Site [place] 08/01/20 04:50 ABG pH 7.480 (7.35-7.45) H 08/01/20 04:50 ABG pCO2 33.0 mmHg (35.0-45.0) L 08/01/20 04:50 ABG pO2 58.0 mmHg (80.0-100.0) L 08/01/20 04:50 ABG HCO3 24.6 mmol/L (22-26) 08/01/20 04:50 ABG O2 Saturation 92.0 % (90-100) 08/01/20 04:50 ABG Base Excess 1.5 mmol/L (-2.0-2.0) 08/01/20 04:50 Alex Test N/a 08/01/20 04:50 A-a Gradient 257.0 mmHg 08/01/20 04:50 FiO2 50 08/01/20 04:50 Blood Gas Comments Marie well ae 08/01/20 04:50 Sodium 140 mmol/L (136-145) 08/01/20 04:20 Corrected Sodium 145 mmol/L (136-145) 08/01/20 04:20 Potassium 4.3 mmol/L (3.5-5.1) 08/01/20 04:20 Chloride 106 mmol/L (98-107) 08/01/20 04:20 Carbon Dioxide 24.4 mmol/L (21-32) 08/01/20 04:20 BUN 25 mg/dL (7-18) H 08/01/20 04:20 Creatinine 0.53 mg/dL (0.55-1.02) L 08/01/20 04:20 Est GFR (MDRD) Af Amer > 60 (>60) 08/01/20 04:20 Est GFR (MDRD) Non-Af > 60 (>60) 08/01/20 04:20 Glucose 297 mg/dL (65-99) H 08/01/20 04:20 Calcium 8.6 mg/dL (8.5-10.1) 08/01/20 04:20 Corrected Calcium 10.1 mg/dL (8.5-10.1) 08/01/20 04:20 Magnesium 2.4 mg/dL (1.7-2.9) 07/26/20 04:56 Ferritin 1601 ng/mL (8-252) H 07/30/20 04:13 Total Bilirubin 2.00 mg/dL (0.2-1.0) H 08/01/20 04:20 AST 73 Units/L (15-37) H 08/01/20 04:20 ALT 169 Units/L (12-78) H 08/01/20 04:20 Alkaline Phosphatase 87 Units/L (46-116) 08/01/20 04:20 Creatine Kinase 330 Units/L (26-192) H 07/22/20 11:53 CK-MB (CK-2) 1.6 ng/mL (0-4.0) 07/22/20 11:53 CK/CKMB % Calc 0.5 % (<4) 07/22/20 11:53 Troponin I 0.04 ng/mL (0-1.5) 07/22/20 11:53 C-Reactive Protein 27.70 mg/L (0-3.0) H 08/01/20 04:20 B-Natriuretic Peptide 129 pg/mL (0-79) H 07/22/20 11:53 Total Protein 5.6 g/dL (6.4-8.2) L 08/01/20 04:20 Albumin 2.1 g/dL (3.4-5.0) L 08/01/20 04:20 Globulin 3.5 g/dL (2.5-4.5) 08/01/20 04:20 Prealbumin 13.5 mg/dL (18-35.7) L 07/26/20 04:56 Albumin/Globulin Ratio 0.6 Ratio (1.1-2.1) L 08/01/20 04:20 Specimen Type Catherized urine 07/31/20 11:32 Urine Color Yellow (YELLOW) 07/31/20 11:32 Urine Appearance Hazy (CLEAR) 07/31/20 11:32 Urine pH 5.0 (5.0 - 8.0) 07/31/20 11:32 Ur Specific [place] 1.020 (1.000-1.030) 07/31/20 11:32 Urine Protein 2+ (NEGATIVE) 07/31/20 11:32 Urine Glucose (UA) 4+ (NEGATIVE) 07/31/20 11:32 Urine Ketones 3+ (NEGATIVE) 07/31/20 11:32 Urine Occult Blood 5+ (NEGATIVE) 07/31/20 11:32 Urine Nitrite Negative (NEGATIVE) 07/31/20 11:32 Urine Bilirubin Negative (NEGATIVE) 07/31/20 11:32 Urine Urobilinogen Normal (NORMAL) 07/31/20 11:32 Ur Leukocyte Esterase Negative (NEGATIVE) 07/31/20 11:32 Urine RBC Tntc /HPF (0-3) A 07/31/20 11:32 Urine WBC 3-5 /HPF (0-5) 07/31/20 11:32 Ur Squamous Epith Cells Rare /HPF (NEGATIVE) 07/31/20 11:32 Urine Bacteria Negative /HPF (NEGATIVE) 07/31/20 11:32 Urine Mucus Few /HPF (NEGATIVE) 07/31/20 11:32 Ur Culture Indicated? No/not indicated 07/31/20 11:32 SARS CoV-2 RNA Rapid CARMEN Positive (NEGATIVE) A 07/22/20 12:18 Blood Type O POSITIVE 07/25/20 02:28 - Plan (1) Pneumonia due to 2019 novel coronavirus Status: Acute Plan: NS AT 40 ML/HR, PROCAL AT 40 ML/HR, CIPRO 400MG IV Q12H, ZOSYN 4.5G IV TID, SOLU-MEDROL 80MG IV Q8H, ATIVAN 0.5MG IV Q8H PRN, PEPCID 20MG IV BID, PROTONIX 40MG IV BID, LOVENOX 40MG SC BID, DUONEBS QID, PULMICORT NEBS BID, THE POTASSIUM AND MAGNESIUM PROTOCOLS, AND DIPROVAN FOR SEDATION, HER HOME MEDICATIONS WERE RESUMED. MECHANICAL VENT (2) Hypoxia Status: Acute (3) Hypothyroidism Status: Chronic Qualifiers: Hypothyroidism type: acquired Qualified Code(s): E03.9 - Hypothyroidism, u nspecified
[2020-08-01] MEDS: NORMODYNE INJ 20 MG VIAL IVP PRN (23:30)
[2020-08-02] MEDS: DIPRIVAN PREMIX 1 GRAM IV 1,000 MG/100 ML VIAL IV PRN ×2 (00:29→16:45)
[2020-08-02] MEDS: MORPHINE SULFATE PCA 30 MG IVP PRN ×2 (02:15→18:25)
[2020-08-02 04:14] LABS: ABG BASE EXCESS -1.3 mmol/L (-2.0-2.0); ABG HCO3 22.7 mmol/L (22-26)
[2020-08-02] MEDS: ZOSYN VIAL 4.5 GRAMS 4.5 G in NS 100 ML IV + SPIKE MINIBAG* 100 ML IV SCH ×3 (05:48→21:42)
[2020-08-02 06:05] LABS: BASOPHILS % (AUTO) 0.3 % (0.2-1.0); HEMATOCRIT 32.6 % (36.0-47.0); HEMOGLOBIN 11.2 g/dL (12.0-16.0); LYMPHOCYTES # (AUTO) 0.5 X10^3/uL (1.3-2.9); LYMPHOCYTES % (AUTO) 5.1 % (21.0-51.0); MEAN CORPUSCULAR HEMOGLOBIN 34.2 pg (27.0-34.0); MEAN CORPUSCULAR HGB CONC 34.5 g/dL (33.0-35.0); MEAN CORPUSCULAR VOLUME 99.2 fL (80.0-100.0); MONOCYTES # (AUTO) 0.2 x10^3/uL (0.3-0.8); NEUTROPHILS # (AUTO) 9.2 x10^3/uL (2.2-4.8); NEUTROPHILS % (AUTO) 92.6 % (42.0-75.0); PLATELET COUNT 191 X10^3/uL (150.0-450.0); RED BLOOD COUNT 3.29 X10^6/uL (3.5-5.4); RED CELL DISTRIBUTION WIDTH 12.8 % (11.6-16.5)
[2020-08-02 06:50] LABS: ALANINE AMINOTRANSFERASE 157 Units/L (12-78); ALBUMIN 2.1 g/dL (3.4-5.0); ALKALINE PHOSPHATASE 91 Units/L (46-116); ASPARTATE AMINO TRANSFERASE 64 Units/L (15-37); BLOOD UREA NITROGEN 26 mg/dL (7-18); CALCIUM 8.6 mg/dL (8.5-10.1); CARBON DIOXIDE 21.6 mmol/L (21-32); CHLORIDE 106 mmol/L (98-107); COR CA(FOR HYPOALB) 10.1 mg/dL (8.5-10.1); COR NA(FOR HYPERGLY) 143 mmol/L (136-145); CREATININE 0.47 mg/dL (0.55-1.02); SODIUM 139 mmol/L (136-145); TOTAL PROTEIN 5.7 g/dL (6.4-8.2); eGFR NON BLACK RACES > 60 (>60)
--- NOTE | 2020-08-02 06:53 | RAD ---
HISTORYSOBSTUDYCHEST, 1 VIEWCOMPARISONOne day prior.TECHNIQUEAP view of the chestFINDINGSET tube in good position. Right IJ central line in good position. Patient is rotated. Cardiac and mediastinal contours are likely stable. Stable bilateral pulmonary infiltrates. No large pleural effusion. No pneumothorax.IMPRESSIONStable pulmonary infiltrates.Electronically signed by: Bipin Moore (Aug 02, 2020 06:52:07)
[2020-08-02 07:56] LABS: PLATELET MORPHOLOGY COMMENT NORMAL (NORMAL)
[2020-08-02] MEDS: LOVENOX INJ 40 MG SYR SC SCH ×2 (08:38→21:41)
[2020-08-02] MEDS: LACRI-LUBE S.O.P. AFFEYE SCH ×2 (08:38→21:38)
[2020-08-02] MEDS: PEPCID 20 MG IV PREMIX* 20 MG/50 ML BAG IV SCH ×2 (08:40→21:44)
[2020-08-02] MEDS: PROTONIX INJ 40 MG VIAL IVP SCH ×2 (08:40→21:44)
[2020-08-02] MEDS: VANCOMYCIN IV *PREMIX 1 G/200 ML BAG 1 G/200 ML PIGGYBACK IV SCH ×2 (08:43→21:42)
[2020-08-02] MEDS: SOLU-Medrol 125 MG VIAL IVP SCH ×3 (08:46→21:38)
[2020-08-02] MEDS: PULMICORT NEB TX 0.5 MG NEB SCH ×2 (09:55→21:45)
[2020-08-02] MEDS: DUONEB 0.5 MG/3 MG (3 mL) NEB SCH ×4 (09:55→21:45)
[2020-08-02] MEDS: DECADRON JET NEB (RESP USE) NEB SCH ×2 (09:55→21:45)
--- NOTE | 2020-08-02 12:13 | PCM.PROG ---
Progress Note - Progress Note for Day of Date of Exam: 08/02/20 - Subjective Subjective: WAS ADMITTED FOR TREATMENT OF PNEUMONIA DUE TO COVID-19, RESPIRATORY FAILURE, AND HYPOXIA. SHE REMAINS ON THE MECHANICAL VENT THIS MORNING. HER SETTINGS ARE FOLLOWS: A/C, VENT RATE 14, TIDAL VOLUME 550, PEEP 8, FI02 50. HER OXYGEN SATURATIONS ON THE BIPAP HAVE BEEN 91-94% ON THE VENT THIS MORNING. BILATERAL LUNGS NOTED WITH RALES THROUGHOUT. ABDOMEN IS ROUND, SOFT, AND NON-TENDER WITH NORMAL BOWEL SOUNDS NOTED IN ALL QUADRANTS. HER VITALS THIS MORNING ARE: 99.6-65-20-92%-128/58. LABS WERE OBTAINED. ABNORMAL LAB VALUES INCLUDE THE FOLLOWING: RBC 3.29, HGB 11.2, HCT 32.6, BUN 26, CREATININE 0.47, GLUCOSE 281, TOTAL BILI 1.70, AST 64, ALT 157, CRP 45.40, TOTAL PROTEIN 5.7, ALB UMIN 2.1. AN ABG WAS OBTAINED THIS MORNING AND REVEALED: PH 7.420, PC02 35, P02 69, HC03 22.7, FI02 50. REPEAT BLOOD CULTURES ARE PENDING. PRELIMINARY CULTURE IS POSITIVE FOR GRAM POSITIVE COCCI. A CHEST XRAY WAS OBTAINED AND REVEALED: ET tube in good position. Right IJ central line in good position. Patient is rotated. Cardiac and mediastinal contours are likely stable. Stable bilateral pulmonary infiltrates. No large pleural effusion. No pneumothorax. SHE IS CURRENTLY RECEIVING PROCAL AT 40 ML/HR, VANCOMYCIN 1G IV Q12H, ZOSYN 4.5G IV TID, SOLU-MEDROL 80MG IV Q12H, ATIVAN 0.5MG IV Q8H PRN, PEPCID 20MG IV BID, PROTONIX 40MG IV BID, LOVENOX 40MG SC BID, DUONEBS QID, PULMICORT NEBS BID, A CLONIDINE PATCH, THE POTASSIUM AND MAGNESIUM PROTOCOLS, AND DIPROVAN, MORPHINE, AND VERSED FOR SEDATION. TODAY, WE WILL ADD LASIX 40MG IV Q12H, INCREASE SOLU- MEDROL TO 80MG IV Q8H. WE WILL PULL THE CENTRAL LINE, CULTURE TIP, AND THEN HAVE ANESTHESIA RESITE A CENTRAL LINE. WE WILL CONTINUE TO ATTEMPT TO WEAN FROM THE VENT. OTHERWISE, WE WILL FOLLOW UP WITH AM LABS, CHEST XRAY, ABG, AND CONTINUE TO MONITOR. TIME SPENT ON CLINICAL ASSESSMENT, PHYSICAL EXAMINATION, REVIEWING LABS/IMAGING, DECISION MAKING, AND DOCUMENTATION MORE THAN 75 MINUTES. - Past Medical Family Social History Past Med/Fam/Surg Hx: No changes since H&P Allergies: Allergies codeine Allergy (Verified 07/22/20 11:49) meperidine [From Demerol] Allergy (Verified 07/22/20 11:49) Tetanus Vaccines and Toxoid Allergy (Verified 07/22/20 11:49) - Review of Systems ROS: No change since H&P - Vital Signs and I&O's Vital Signs: Temperature 99.6 F Pulse Rate [Right Brachial] 65 Pulse Rate 65 Respiratory Rate 20 Blood Pressure [Left Radial 134/52 Artery] Blood Pressure [Right Arm] 128/58 Blood Pressure 141/62 O2 Sat by Pulse Oximetry 92 Intake and Output: Intake & Output 07/31/20 08/01/20 08/02/20 08/03/20 11:59 11:59 11:59 11:59 Intake Total 3590 / 3590 2992 / 3032 2380 / 2380 Output Total 3950 / 3950 2450 / 3150 2650 / 2650 Balance -360 / -360 542 / -118 -270 / -270 - Physical Exam Oriented: Unable to test Eyes: Normal Ear: Normal Nose: Normal Throat: Normal Respiratory: Generalized, Diminished, Wheezes Cardiovascular: Bradycardia : Normal Auscultation: Bowel Sounds: Normal Tenderness: Normal Skin: Normal Musculoskeletal: Normal Psychiatric: Normal Mood Description: Calm Affect: Normal Speech Pattern: Artificially Ventilated - Laboratory and Diagnostics Result Diagrams: 08/02/20 04:45 08/02/20 04:45 Labs: 07/31/20 11:00 Blood Blood Culture - Preliminary 07/31/20 11:05 Blood Blood Culture - Preliminary 07/22/20 11:53 Blood Blood Culture - Final 07/22/20 12:02 Blood Blood Culture - Final 07/24/20 22:37 Sputum - Endotracheal Wash Sputum Culture - Final 07/24/20 22:37 Sputum - Endotracheal Wash - Final 07/22/20 12:18 Sputum - Expectorated Sputum Sputum Culture - Final 07/22/20 12:18 Sputum - Expectorated Sputum - Final Laboratory WBC 10.0 X10^3/uL (3.6-10.0) 08/02/20 04:45 RBC 3.29 X10^6/uL (3.5-5.4) L 08/02/20 04:45 Hgb 11.2 g/dL (12.0-16.0) L 08/02/20 04:45 Hct 32.6 % (36.0-47.0) L 08/02/20 04:45 MCV 99.2 fL (80.0-100.0) 08/02/20 04:45 MCH 34.2 pg (27.0-34.0) H 08/02/20 04:45 MCHC 34.5 g/dL (33.0-35.0) 08/02/20 04:45 RDW 12.8 % (11.6-16.5) 08/02/20 04:45 Plt Count 191 X10^3/uL (150.0-450.0) 08/02/20 04:45 Plt Count Comment Adequate (ADEQUATE) 08/02/20 04:45 MPV 9.0 fL (7.4-11.0) 08/02/20 04:45 Neut % (Auto) 92.6 % (42.0-75.0) H 08/02/20 04:45 Lymph % (Auto) 5.1 % (21.0-51.0) L 08/02/20 04:45 [place] % (Auto) 2.0 % (0.0-13.0) 08/02/20 04:45 Eos % (Auto) 0.0 % (0.9-2.9) L 08/02/20 04:45 Baso % (Auto) 0.3 % (0.2-1.0) 08/02/20 04:45 Neut # (Auto) 9.2 x10^3/uL (2.2-4.8) H 08/02/20 04:45 Lymph # (Auto) 0.5 X10^3/uL (1.3-2.9) L 08/02/20 04:45 [place] # (Auto) 0.2 x10^3/uL (0.3-0.8) L 08/02/20 04:45 Eos # (Auto) 0.0 x10^3/uL (0.0-0.2) 08/02/20 04:45 Baso # (Auto) 0.0 X10^3/uL (0.0-0.1) 08/02/20 04:45 Absolute Nucleated RBC 0.0 /100WBC 08/02/20 04:45 Total Counted 100 08/02/20 04:45 Neutrophils % (Manual) 88 % (39-76) H 08/02/20 04:45 Lymphocytes % (Manual) 8 % (13-43) L 08/02/20 04:45 Monocytes % (Manual) 4 % (4-9) 08/02/20 04:45 Plt Morphology Comment Normal (NORMAL) 08/02/20 04:45 RBC Morphology Normal (NORMAL) 08/02/20 04:45 Hypochromasia Slight A 07/29/20 04:13 Macrocytosis 1+ A 07/30/20 04:13 D-Dimer 3.50 ug/ml (0.0-0.57) H* 07/30/20 04:13 Sample Site Artline 08/02/20 04:11 ABG pH 7.420 (7.35-7.45) 08/02/20 04:11 ABG pCO2 35.0 mmHg (35.0-45.0) 08/02/20 04:11 ABG pO2 69.0 mmHg (80.0-100.0) L 08/02/20 04:11 ABG HCO3 22.7 mmol/L (22-26) 08/02/20 04:11 ABG O2 Saturation 94.0 % (90-100) 08/02/20 04:11 ABG Base Excess -1.3 mmol/L (-2.0-2.0) 08/02/20 04:11 Alex Test Na 08/02/20 04:11 A-a Gradient 244.0 mmHg 08/02/20 04:11 FiO2 50.0 08/02/20 04:11 Blood Gas Comments Marie well 08/02/20 04:11 Sodium 139 mmol/L (136-145) 08/02/20 04:45 Corrected Sodium 143 mmol/L (136-145) 08/02/20 04:45 Potassium 4.2 mmol/L (3.5-5.1) 08/02/20 04:45 Chloride 106 mmol/L (98-107) 08/02/20 04:45 Carbon Dioxide 21.6 mmol/L (21-32) 08/02/20 04:45 BUN 26 mg/dL (7-18) H 08/02/20 04:45 Creatinine 0.47 mg/dL (0.55-1.02) L 08/02/20 04:45 Est GFR (MDRD) Af Amer > 60 (>60) 08/02/20 04:45 Est GFR (MDRD) Non-Af > 60 (>60) 08/02/20 04:45 Glucose 281 mg/dL (65-99) H 08/02/20 04:45 Calcium 8.6 mg/dL (8.5-10.1) 08/02/20 04:45 Corrected Calcium 10.1 mg/dL (8.5-10.1) 08/02/20 04:45 Magnesium 2.4 mg/dL (1.7-2.9) 07/26/20 04:56 Ferritin 1601 ng/mL (8-252) H 07/30/20 04:13 Total Bilirubin 1.70 mg/dL (0.2-1.0) H 08/02/20 04:45 AST 64 Units/L (15-37) H 08/02/20 04:45 ALT 157 Units/L (12-78) H 08/02/20 04:45 Alkaline Phosphatase 91 Units/L (46-116) 08/02/20 04:45 Creatine Kinase 330 Units/L (26-192) H 07/22/20 11:53 CK-MB (CK-2) 1.6 ng/mL (0-4.0) 07/22/20 11:53 CK/CKMB % Calc 0.5 % (<4) 07/22/20 11:53 Troponin I 0.04 ng/mL (0-1.5) 07/22/20 11:53 C-Reactive Protein 45.40 mg/L (0-3.0) H 08/02/20 04:45 B-Natriuretic Peptide 129 pg/mL (0-79) H 07/22/20 11:53 Total Protein 5.7 g/dL (6.4-8.2) L 08/02/20 04:45 Albumin 2.1 g/dL (3.4-5.0) L 08/02/20 04:45 Globulin 3.6 g/dL (2.5-4.5) 08/02/20 04:45 Prealbumin 13.5 mg/dL (18-35.7) L 07/26/20 04:56 Albumin/Globulin Ratio 0.6 Ratio (1.1-2.1) L 08/02/20 04:45 Specimen Type Catherized urine 07/31/20 11:32 Urine Color Yellow (YELLOW) 07/31/20 11:32 Urine Appearance Hazy (CLEAR) 07/31/20 11:32 Urine pH 5.0 (5.0 - 8.0) 07/31/20 11:32 Ur Specific [place] 1.020 (1.000-1.030) 07/31/20 11:32 Urine Protein 2+ (NEGATIVE) 07/31/20 11:32 Urine Glucose (UA) 4+ (NEGATIVE) 07/31/20 11:32 Urine Ketones 3+ (NEGATIVE) 07/31/20 11:32 Urine Occult Blood 5+ (NEGATIVE) 07/31/20 11:32 Urine Nitrite Negative (NEGATIVE) 07/31/20 11:32 Urine Bilirubin Negative (NEGATIVE) 07/31/20 11:32 Urine Urobilinogen Normal (NORMAL) 07/31/20 11:32 Ur Leukocyte Esterase Negative (NEGATIVE) 07/31/20 11:32 Urine RBC Tntc /HPF (0-3) A 07/31/20 11:32 Urine WBC 3-5 /HPF (0-5) 07/31/20 11:32 Ur Squamous Epith Cells Rare /HPF (NEGATIVE) 07/31/20 11:32 Urine Bacteria Negative /HPF (NEGATIVE) 07/31/20 11:32 Urine Mucus Few /HPF (NEGATIVE) 07/31/20 11:32 Ur Culture Indicated? No/not indicated 07/31/20 11:32 SARS CoV-2 RNA Rapid CARMEN Positive (NEGATIVE) A 07/22/20 12:18 Blood Type O POSITIVE 07/25/20 02:28 - Plan (1) Pneumonia due to 2019 novel coronavirus Status: Acute Plan: NS AT 40 ML/HR, PROCAL AT 40 ML/HR, VANCOMYCIN 1G IV Q12H, ZOSYN 4.5G IV TID, SOLU-MEDROL 80MG IV Q8H, ATIVAN 0.5MG IV Q8H PRN, PEPCID 20MG IV BID, PROTONIX 40MG IV BID, LOVENOX 40MG SC BID, DUONEBS QID, PULMICORT NEBS BID, THE POTASSIUM AND MAGNESIUM PROTOCOLS, AND DIPROVAN FOR SEDATION, HER HOME MEDICATIONS WERE RESUMED. MECHANICAL VENT (2) Hypoxia Status: Acute (3) Hypothyroidism Status: Chronic Qualifiers: Hypothyroidism type: acquired Qualified Code(s): E03.9 - Hypothyroidism, unspecified
[2020-08-02] MEDS: VERSED 100 MG in NS 100 ML IV 80 ML IV PRN (12:14)
--- NOTE | 2020-08-02 15:45 | DR.UPDATE ---
H&P Update History and Physical Update: History and Physical reviewed and patient examined. Changes noted: NO Yes with the following:will place central line H&P Reviewed: Yes Patient was examined?: Yes Procedures (ALL) - Central Line Placement PCM.CLCO: written consent Time out performed: Yes Patient placed pm monitor/pulse ox: Yes MD prep: mask, gown, gloves, other Centrial line prep: chlorhexidine scrub, sterile drapes applied Local anesthsia used: lidocane 1% Ultrasound used for placement: Yes (right fem id'd via u/s) Central line lumen ininserted: triple Post procedure: sutured in place, good blood return, all ports aspirated, flushed,capped, sterile dressing applied Post procedure xray: other (femoral, no cxr) Patient tolerated procedure: Yes Complications: none
[2020-08-02] MEDS ORDERED: NS 250 ML IV 250 ML IV ONE (17:31)
[2020-08-02] MEDS: LASIX IVP SCH (18:00)
[2020-08-02] MEDS: PROCALAMINE 3 % 1,000 ML IV SCH (18:00)
[2020-08-02] MEDS ORDERED: PHARMACY COMMENT IV NR (20:30)
[2020-08-02 21:16] LABS: CREATININE 0.56 mg/dL (0.55-1.02); VANCOMYCIN,TROUGH 3.2 ug/mL (15-20)
[2020-08-03] MEDS: VERSED 100 MG in NS 100 ML IV 80 ML IV PRN (03:59)
[2020-08-03] MEDS: NORMODYNE INJ 20 MG VIAL IVP PRN ×5 (04:00→16:33)
[2020-08-03 05:38] LABS: BASOPHILS % (AUTO) 0.1 % (0.2-1.0); HEMATOCRIT 33.8 % (36.0-47.0); HEMOGLOBIN 11.5 g/dL (12.0-16.0); LYMPHOCYTES # (AUTO) 0.5 X10^3/uL (1.3-2.9); LYMPHOCYTES % (AUTO) 4.2 % (21.0-51.0); MEAN CORPUSCULAR HEMOGLOBIN 33.3 pg (27.0-34.0); MEAN PLATELET VOLUME 8.7 fL (7.4-11.0); MONOCYTES # (AUTO) 0.6 x10^3/uL (0.3-0.8); MONOCYTES % (AUTO) 5.1 % (0.0-13.0); NEUTROPHILS # (AUTO) 10.5 x10^3/uL (2.2-4.8); NEUTROPHILS % (AUTO) 90.6 % (42.0-75.0); PLATELET COUNT 227 X10^3/uL (150.0-450.0); RED BLOOD COUNT 3.45 X10^6/uL (3.5-5.4); WHITE BLOOD COUNT 11.6 X10^3/uL (3.6-10.0)
[2020-08-03 05:55] LABS: ALANINE AMINOTRANSFERASE 192 Units/L (12-78); ALBUMIN 2.3 g/dL (3.4-5.0); ALKALINE PHOSPHATASE 100 Units/L (46-116); ASPARTATE AMINO TRANSFERASE 76 Units/L (15-37); BLOOD UREA NITROGEN 23 mg/dL (7-18); CALCIUM 8.8 mg/dL (8.5-10.1); CARBON DIOXIDE 21.2 mmol/L (21-32); CHLORIDE 103 mmol/L (98-107); COR CA(FOR HYPOALB) 10.2 mg/dL (8.5-10.1); COR NA(FOR HYPERGLY) 143 mmol/L (136-145); CREATININE 0.56 mg/dL (0.55-1.02); SODIUM 139 mmol/L (136-145); TOTAL PROTEIN 6.3 g/dL (6.4-8.2); eGFR NON BLACK RACES > 60 (>60)
[2020-08-03 06:33] LABS: ABG HCO3 25.5 mmol/L (22-26)
--- NOTE | 2020-08-03 06:42 | RAD ---
HISTORYSOBSTUDYCHEST, 1 [id number]/2020FINDINGSThe trachea is midline. Endotracheal tube tip above the ivis. The cardiac silhouette is unremarkable. Stable bilateral patchy pulmonary infiltrates. No pneumothorax.. The bony thorax is unremarkable.IMPRESSIONStable portable chestElectronically signed by: Norman Pichardo (Aug 03, 2020 06:40:55)
[2020-08-03] MEDS: SOLU-Medrol 125 MG VIAL IVP SCH ×3 (07:11→21:40)
[2020-08-03] MEDS: ZOSYN VIAL 4.5 GRAMS 4.5 G in NS 100 ML IV + SPIKE MINIBAG* 100 ML IV SCH ×3 (07:12→21:40)
[2020-08-03 07:15] LABS: PLATELET MORPHOLOGY COMMENT NORMAL (NORMAL)
[2020-08-03] MEDS: DECADRON JET NEB (RESP USE) NEB SCH ×2 (08:57→21:00)
[2020-08-03] MEDS: DUONEB 0.5 MG/3 MG (3 mL) NEB SCH ×4 (08:57→21:00)
[2020-08-03] MEDS: PULMICORT NEB TX 0.5 MG NEB SCH ×2 (08:57→21:00)
[2020-08-03] MEDS: PROTONIX INJ 40 MG VIAL IVP SCH ×2 (10:11→21:39)
[2020-08-03] MEDS: LOVENOX INJ 40 MG SYR SC SCH (10:11)
[2020-08-03] MEDS: LASIX IVP SCH (10:28)
[2020-08-03] MEDS: LACRI-LUBE S.O.P. AFFEYE SCH ×2 (10:54→21:39)
[2020-08-03] MEDS: VANCOMYCIN IV *PREMIX 1 G/200 ML BAG 1 G/200 ML PIGGYBACK IV SCH ×3 (11:00→21:40)
[2020-08-03] MEDS ORDERED: LOVENOX INJ 40 MG SYR SC NR (11:00)
--- NOTE | 2020-08-03 11:38 | PCM.PROG ---
Progress Note - Progress Note for Day of Date of Exam: 08/03/20 - Subjective Subjective: WAS ADMITTED FOR TREATMENT OF PNEUMONIA DUE TO COVID-19, RESPIRATORY FAILURE, AND HYPOXIA. SHE HAS POSITIVE BLOOD CULTURES. SHE REMAINS ON THE MECHANICAL VENT THIS MORNING. HER SETTINGS ARE FOLLOWS: SIMV, VENT RATE 14, TIDAL VOLUME 550, PEEP 8, PRESSURE SUPPORT 10, RISE TIME 2, FI02 40. HER OXYGEN SATURATIONS ON THESE SETTINGS HAVE BEEN 88-93& THIS MORNING AND THROUGHOUT THE NIGHT. HER SEDATION HAS BEEN DECREASED. ON EXAMINATION BILATERAL LUNGS NOTED WITH RALES THROUGHOUT. ABDOMEN IS ROUND, SOFT, AND NON-TENDER WITH NORMAL BOWEL SOUNDS NOTED IN ALL QUADRANTS. HER VITALS THIS MORNING ARE: 98.0-69-16-88%-158/51. LABS WERE OBTAINED. ABNORMAL LAB VALUES INCLUDE THE FOLLOWING: WBC 11.6, RBC 3.45, HGB 11.5, HCT 33.8, BUN 23, GLUCOE 265, TOTAL PROTEIN 2.20, AST 76, ALT 192, CRP 66.20, TOTAL PROTEIN 6.3, ALBUMIN 2.3. AN ABG WAS OBTAINED THIS MORNING AND REVEALED: PH 7.470, PC02 35, P02 66, HC03 25.5, 02 SAT 94, FI02 40. REPEAT BLOOD CULTURES ARE POSITIVE FOR STAPHYLOCOCCUS EP IDERMIDIS. CULTURE OF CENTRAL LINE IS PENDING. A CHEST XRAY WAS OBTAINED AND REVEALED: The trachea is midline. Endotracheal tube tip above the ivis. The cardiac silhouette is unremarkable. Stable bilateral patchy pulmonary infiltrates. No pneumothorax. The bony thorax is unremarkable. SHE IS CURRENTLY RECEIVING PROCAL AT 40 ML/HR, VANCOMYCIN 1G IV Q12H, ZOSYN 4.5G IV TID, SOLU- MEDROL 80MG IV Q8H, LASIX 40MG IV Q12H, ATIVAN 0.5MG IV Q8H PRN, PEPCID 20MG IV BID, PROTONIX 40MG IV BID, LOVENOX 40MG SC BID, DUONEBS QID, PULMICORT NEBS BID, A CLONIDINE PATCH, THE POTASSIUM AND MAGNESIUM PROTOCOLS, AND DIPROVAN, MORPHINE, AND VERSED FOR SEDATION. A NEW CENTRAL LINE WAS PLACED AT A DIFFERENT SIT YESTERDAY. TODAY, WE WILL INCREASE HER LOVENOX TO A FULL TREATMENT DOSE. WE WILL CONTINUE TO WEAN THE VENT AND POSSIBLY EXTUBATE TODAY. OTHERWISE, WE WILL FOLLOW UP WITH AM LABS, CHEST XRAY, ABG, AND CONTINUE TO MONITOR. TIME SPENT ON CLINICAL ASSESSMENT, PHYSICAL EXAMINATION, REVIEWING LABS/IMAGING, DECISION MAKING, AND DOCUMENTATION MORE THAN 75 MINUTES. - Past Medical Family Social History Past Med/Fam/Surg Hx: No changes since H&P Allergies: Allergies codeine Allergy (Verified 07/22/20 11:49) meperidine [From Demerol] Allergy (Verified 07/22/20 11:49) Tetanus Vaccines and Toxoid Allergy (Verified 07/22/20 11:49) - Review of Systems ROS: No change since H&P - Vital Signs and I&O's Vital Signs: Temperature 98.0 F Pulse Rate [Right Brachial] 67 Pulse Rate 69 Respiratory Rate 26 Blood Pressure [Left Radial 138/51 Artery] Blood Pressure [Right Arm] 133/60 Blood Pressure 141/62 O2 Sat by Pulse Oximetry 91 Intake and Output: Intake & Output 07/31/20 08/01/20 08/02/20 08/03/20 11:59 11:59 11:59 11:59 Intake Total 3590 / 3590 2992 / 3032 2468 / 2468 2059 / 2060 Output Total 3950 / 3950 2450 / 3150 2650 / 2650 4575 / 4575 Balance -360 / -360 542 / -118 -182 / -182 -2515 / -2515 - Physical Exam Oriented: Unable to test Eyes: Normal Ear: Normal Nose: Normal Throat: Normal Respiratory: Generalized, Diminished, Wheezes Cardiovascular: Bradycardia : Normal Auscultation: Bowel Sounds: Normal Tenderness: Normal Skin: Normal Musculoskeletal: Normal Psychiatric: Normal Mood Description: Calm Affect: Normal Speech Pattern: Artificially Ventilated - Laboratory and Diagnostics Result Diagrams: 08/03/20 04:35 08/03/20 04:35 Labs: 08/02/20 16:20 Neck - Preliminary 07/31/20 11:05 Blood Blood Culture - Preliminary 07/31/20 11:00 Blood Blood Culture - Final Staphylococcus Epidermidis 07/22/20 11:53 Blood Blood Culture - Final 07/22/20 12:02 Blood Blood Culture - Final 07/24/20 22:37 Sputum - Endotracheal Wash Sputum Culture - Final 07/24/20 22:37 Sputum - Endotracheal Wash - Final 07/22/20 12:18 Sputum - Expectorated Sputum Sputum Culture - Final 07/22/20 12:18 Sputum - Expectorated Sputum - Final Laboratory WBC 11.6 X10^3/uL (3.6-10.0) H 08/03/20 04:35 RBC 3.45 X10^6/uL (3.5-5.4) L 08/03/20 04:35 Hgb 11.5 g/dL (12.0-16.0) L 08/03/20 04:35 Hct 33.8 % (36.0-47.0) L 08/03/20 04:35 MCV 98.0 fL (80.0-100.0) 08/03/20 04:35 MCH 33.3 pg (27.0-34.0) 08/03/20 04:35 MCHC 34.0 g/dL (33.0-35.0) 08/03/20 04:35 RDW 13.0 % (11.6-16.5) 08/03/20 04:35 Plt Count 227 X10^3/uL (150.0-450.0) 08/03/20 04:35 Plt Count Comment Adequate (ADEQUATE) 08/03/20 04:35 MPV 8.7 fL (7.4-11.0) 08/03/20 04:35 Neut % (Auto) 90.6 % (42.0-75.0) H 08/03/20 04:35 Lymph % (Auto) 4.2 % (21.0-51.0) L 08/03/20 04:35 [place] % (Auto) 5.1 % (0.0-13.0) 08/03/20 04:35 Eos % (Auto) 0.0 % (0.9-2.9) L 08/03/20 04:35 Baso % (Auto) 0.1 % (0.2-1.0) L 08/03/20 04:35 Neut # (Auto) 10.5 x10^3/uL (2.2-4.8) H 08/03/20 04:35 Lymph # (Auto) 0.5 X10^3/uL (1.3-2.9) L 08/03/20 04:35 [place] # (Auto) 0.6 x10^3/uL (0.3-0.8) 08/03/20 04:35 Eos # (Auto) 0.0 x10^3/uL (0.0-0.2) 08/03/20 04:35 Baso # (Auto) 0.0 X10^3/uL (0.0-0.1) 08/03/20 04:35 Absolute Nucleated RBC 0.0 /100WBC 08/03/20 04:35 Total Counted 100 08/03/20 04:35 Neutrophils % (Manual) 87 % (39-76) H 08/03/20 04:35 Lymphocytes % (Manual) 6 % (13-43) L 08/03/20 04:35 Monocytes % (Manual) 7 % (4-9) 08/03/20 04:35 Plt Morphology Comment Normal (NORMAL) 08/03/20 04:35 RBC Morphology Normal (NORMAL) 08/03/20 04:35 Hypochromasia Slight A 07/29/20 04:13 Macrocytosis 1+ A 07/30/20 04:13 D-Dimer 3.48 ug/ml (0.0-0.57) H* 08/03/20 04:35 Sample Site Artline 08/03/20 06:32 ABG pH 7.470 (7.35-7.45) H 08/03/20 06:32 ABG pCO2 35.0 mmHg (35.0-45.0) 08/03/20 06:32 ABG pO2 66.0 mmHg (80.0-100.0) L 08/03/20 06:32 ABG HCO3 25.5 mmol/L (22-26) 08/03/20 06:32 ABG O2 Saturation 94.0 % (90-100) 08/03/20 06:32 ABG Base Excess 2.0 mmol/L (-2.0-2.0) 08/03/20 06:32 Alex Test Na 08/03/20 06:32 A-a Gradient 175.0 mmHg 08/03/20 06:32 FiO2 40.0 08/03/20 06:32 Blood Gas Comments Marie well 08/03/20 06:32 Sodium 139 mmol/L (136-145) 08/03/20 04:35 Corrected Sodium 143 mmol/L (136-145) 08/03/20 04:35 Potassium 3.6 mmol/L (3.5-5.1) 08/03/20 04:35 Chloride 103 mmol/L (98-107) 08/03/20 04:35 Carbon Dioxide 21.2 mmol/L (21-32) 08/03/20 04:35 BUN 23 mg/dL (7-18) H 08/03/20 04:35 Creatinine 0.56 mg/dL (0.55-1.02) 08/03/20 04:35 Est GFR (MDRD) Af Amer > 60 (>60) 08/03/20 04:35 Est GFR (MDRD) Non-Af > 60 (>60) 08/03/20 04:35 Glucose 265 mg/dL (65-99) H 08/03/20 04:35 Calcium 8.8 mg/dL (8.5-10.1) 08/03/20 04:35 Corrected Calcium 10.2 mg/dL (8.5-10.1) H 08/03/20 04:35 Magnesium 2.4 mg/dL (1.7-2.9) 07/26/20 04:56 Ferritin 1601 ng/mL (8-252) H 07/30/20 04:13 Total Bilirubin 2.20 mg/dL (0.2-1.0) H 08/03/20 04:35 AST 76 Units/L (15-37) H 08/03/20 04:35 ALT 192 Units/L (12-78) H 08/03/20 04:35 Alkaline Phosphatase 100 Units/L (46-116) 08/03/20 04:35 Creatine Kinase 330 Units/L (26-192) H 07/22/20 11:53 CK-MB (CK-2) 1.6 ng/mL (0-4.0) 07/22/20 11:53 CK/CKMB % Calc 0.5 % (<4) 07/22/20 11:53 Troponin I 0.04 ng/mL (0-1.5) 07/22/20 11:53 C-Reactive Protein 66.20 mg/L (0-3.0) H 08/03/20 04:35 B-Natriuretic Peptide 129 pg/mL (0-79) H 07/22/20 11:53 Total Protein 6.3 g/dL (6.4-8.2) L 08/03/20 04:35 Albumin 2.3 g/dL (3.4-5.0) L 08/03/20 04:35 Globulin 4.0 g/dL (2.5-4.5) 08/03/20 04:35 Prealbumin 13.5 mg/dL (18-35.7) L 07/26/20 04:56 Albumin/Globulin Ratio 0.6 Ratio (1.1-2.1) L 08/03/20 04:35 Specimen Type Catherized urine 07/31/20 11:32 Urine Color Yellow (YELLOW) 07/31/20 11:32 Urine Appearance Hazy (CLEAR) 07/31/20 11:32 Urine pH 5.0 (5.0 - 8.0) 07/31/20 11:32 Ur Specific [place] 1.020 (1.000-1.030) 07/31/20 11:32 Urine Protein 2+ (NEGATIVE) 07/31/20 11:32 Urine Glucose (UA) 4+ (NEGATIVE) 07/31/20 11:32 Urine Ketones 3+ (NEGATIVE) 07/31/20 11:32 Urine Occult Blood 5+ (NEGATIVE) 07/31/20 11:32 Urine Nitrite Negative (NEGATIVE) 07/31/20 11:32 Urine Bilirubin Negative (NEGATIVE) 07/31/20 11:32 Urine Urobilinogen Normal (NORMAL) 07/31/20 11:32 Ur Leukocyte Esterase Negative (NEGATIVE) 07/31/20 11:32 Urine RBC Tntc /HPF (0-3) A 07/31/20 11:32 Urine WBC 3-5 /HPF (0-5) 07/31/20 11:32 Ur Squamous Epith Cells Rare /HPF (NEGATIVE) 07/31/20 11:32 Urine Bacteria Negative /HPF (NEGATIVE) 07/31/20 11:32 Urine Mucus Few /HPF (NEGATIVE) 07/31/20 11:32 Ur Culture Indicated? No/not indicated 07/31/20 11:32 Vancomycin Trough 3.2 ug/mL (15-20) L 08/02/20 20:38 SARS CoV-2 RNA Rapid CARMEN Positive (NEGATIVE) A 07/22/20 12:18 Blood Type O POSITIVE 07/25/20 02:28 - Plan (1) Pneumonia due to 2019 novel coronavirus Status: Acute Plan: NS AT 40 ML/HR, PROCAL AT 40 ML/HR, VANCOMYCIN 1G IV Q12H, ZOSYN 4.5G IV TID, SOLU-MEDROL 80MG IV Q8H, ATIVAN 0.5MG IV Q8H PRN, PEPCID 20MG IV BID, PROTONIX 40MG IV BID, LOVENOX 40MG SC BID, DUONEBS QID, PULMICORT NEBS BID, THE POTASSIUM AND MAGNESIUM PROTOCOLS, AND DIPROVAN FOR SEDATION, HER HOME MEDICATIONS WERE RESUMED. MECHANICAL VENT (2) Hypoxia Status: Acute (3) Hypothyroidism Status: Chronic Qualifiers: Hypothyroidism type: acquired Qualified Code(s): E03.9 - Hypothyroidism, unspecified
[2020-08-03] MEDS: PEPCID 20 MG IV PREMIX* 20 MG/50 ML BAG IV SCH ×2 (12:00→21:39)
[2020-08-03] MEDS: PROCALAMINE 3 % 1,000 ML IV SCH ×2 (12:00→14:17)
[2020-08-03] MEDS: ATIVAN INJ 2 MG VIAL IVP PRN (13:23)
[2020-08-03] MEDS ORDERED: LANOXIN INJ IVP ONE (14:24)
[2020-08-03] MEDS: VASOTEC INJ 2.5 MG VIAL IVP PRN (18:15)
[2020-08-03] MEDS: LOVENOX INJ 80 MG SYR SC SCH (21:00)
[2020-08-03] MEDS: MUCOMYST 20% 200 MG/ML NEB SCH (21:00)
[2020-08-04] MEDS: OFIRMEV IV 1000 MG VIAL 1,000 MG/100 ML VIAL IV PRN (00:40)
[2020-08-04] MEDS: VASOTEC INJ 2.5 MG VIAL IVP PRN ×2 (01:02→12:40)
[2020-08-04] MEDS: NORMODYNE INJ 20 MG VIAL IVP PRN ×2 (05:24→16:36)
[2020-08-04] MEDS ORDERED: PHARMACY COMMENT IV NR (05:30)
[2020-08-04 05:44] LABS: ABG BASE EXCESS -1.1 mmol/L (-2.0-2.0); ABG HCO3 20.7 mmol/L (22-26)
[2020-08-04 06:07] LABS: CREATININE 0.48 mg/dL (0.55-1.02); VANCOMYCIN,TROUGH 7.6 ug/mL (15-20)
[2020-08-04 06:08] LABS: ALANINE AMINOTRANSFERASE 271 Units/L (12-78); ALBUMIN 2.2 g/dL (3.4-5.0); ALKALINE PHOSPHATASE 86 Units/L (46-116); ASPARTATE AMINO TRANSFERASE 132 Units/L (15-37); BLOOD UREA NITROGEN 28 mg/dL (7-18); CALCIUM 8.7 mg/dL (8.5-10.1); CARBON DIOXIDE 21.1 mmol/L (21-32); CHLORIDE 104 mmol/L (98-107); COR CA(FOR HYPOALB) 10.1 mg/dL (8.5-10.1); COR NA(FOR HYPERGLY) 144 mmol/L (136-145); CREATININE 0.56 mg/dL (0.55-1.02); SODIUM 140 mmol/L (136-145); TOTAL PROTEIN 6.1 g/dL (6.4-8.2); eGFR NON BLACK RACES > 60 (>60)
[2020-08-04 06:16] LABS: BASOPHILS % (AUTO) 0.2 % (0.2-1.0); EOSINOPHILS % (AUTO) 0.1 % (0.9-2.9); HEMATOCRIT 31.3 % (36.0-47.0); HEMOGLOBIN 10.8 g/dL (12.0-16.0); LYMPHOCYTES # (AUTO) 0.6 X10^3/uL (1.3-2.9); LYMPHOCYTES % (AUTO) 5.3 % (21.0-51.0); MEAN CORPUSCULAR HEMOGLOBIN 35.7 pg (27.0-34.0); MEAN CORPUSCULAR HGB CONC 34.4 g/dL (33.0-35.0); MEAN CORPUSCULAR VOLUME 103.8 fL (80.0-100.0); MEAN PLATELET VOLUME 8.7 fL (7.4-11.0); MONOCYTES # (AUTO) 0.7 x10^3/uL (0.3-0.8); MONOCYTES % (AUTO) 5.9 % (0.0-13.0); NEUTROPHILS # (AUTO) 10.2 x10^3/uL (2.2-4.8); NEUTROPHILS % (AUTO) 88.5 % (42.0-75.0); PLATELET COUNT 230 X10^3/uL (150.0-450.0); RED BLOOD COUNT 3.02 X10^6/uL (3.5-5.4); RED CELL DISTRIBUTION WIDTH 12.6 % (11.6-16.5); WHITE BLOOD COUNT 11.5 X10^3/uL (3.6-10.0)
[2020-08-04] MEDS: SOLU-Medrol 125 MG VIAL IVP SCH ×3 (06:21→22:08)
[2020-08-04] MEDS: ZOSYN VIAL 4.5 GRAMS 4.5 G in NS 100 ML IV + SPIKE MINIBAG* 100 ML IV SCH ×3 (06:21→22:09)
[2020-08-04] MEDS: K-RIDER 10 MEQ/NS 100 ML 10 MEQ/100 ML BAG IV PRN (06:35)
--- NOTE | 2020-08-04 06:35 | RAD ---
HISTORYSOBSTUDYCHEST, 1 [id number]/2020FINDINGSThe trachea is midline. Endotracheal tube has been removed. The cardiac silhouette is stable. Bilateral patchy pulmonary infiltrates unchanged. No pneumothorax. In. The bony thorax is unremarkable.IMPRESSIONStable portable chestElectronically signed by: Norman Pichardo (Aug 04, 2020 06:32:19)
[2020-08-04] MEDS: VANCOMYCIN IV *PREMIX 1 G/200 ML BAG 1 G/200 ML PIGGYBACK IV SCH (06:54)
[2020-08-04] MEDS: CARDIZEM INJ 125 MG VIAL 125 MG in NS 100 ML IV 100 ML IV PRN ×2 (07:44→17:44)
[2020-08-04] MEDS ORDERED: VANCOMYCIN HCL 250 MG, VANCOMYCIN HCL 1 G in D5W 250 ML IV 250 ML IV SCH (08:00)
[2020-08-04] MEDS: PROCALAMINE 3 % 1,000 ML IV SCH ×2 (08:06→23:36)
[2020-08-04] MEDS: VANCOMYCIN IV *PREMIX 1.25 G/250 ML BAG 1.25 G/250 ML PIGGYBACK IV SCH ×3 (09:25→22:08)
[2020-08-04] MEDS: PROTONIX INJ 40 MG VIAL IVP SCH ×2 (09:25→22:08)
[2020-08-04] MEDS: MUCOMYST 20% 200 MG/ML NEB SCH ×3 (10:00→17:20)
[2020-08-04] MEDS: PULMICORT NEB TX 0.5 MG NEB SCH (10:00)
[2020-08-04] MEDS: DUONEB 0.5 MG/3 MG (3 mL) NEB SCH ×3 (10:00→17:20)
[2020-08-04] MEDS: DECADRON JET NEB (RESP USE) NEB SCH (10:00)
[2020-08-04] MEDS: LACRI-LUBE S.O.P. AFFEYE SCH ×2 (10:15→22:07)
[2020-08-04] MEDS: LOVENOX INJ 80 MG SYR SC SCH ×2 (10:15→22:08)
--- NOTE | 2020-08-04 11:23 | CT ---
HISTORYAltered mental statusSTUDYCT head without contrastTechnique: Axial noncontrast images with coronal and sagittal reformats. Dose reduction procedures were used with mA/kv adjusted for body size.COMPARISONNoneFINDINGSThe ventricles are normal in size shape and position. There is slight decreased attenuation in the periventricular white matter suggestive of small vessel vascular disease. There are no areas of abnormal attenuation to suggest recent or remote CVA, hemorrhage, mass lesion, or extra-axial fluid collection. The visualized sinuses are clear with the exception of near complete opacification of the right maxillary sinus likely inflammatory in origin. Calvarium is intact.IMPRESSIONNo acute intracranial abnormalityMild small vessel diseaseRight maxillary sinusitisElectronically signed by: SOHAN MORAN (Aug 04, 2020 11:21:28)
[2020-08-04] MEDS: PEPCID 20 MG IV PREMIX* 20 MG/50 ML BAG IV SCH ×2 (12:35→22:08)
[2020-08-04] MEDS ORDERED: NS 100 ML IV 100 ML IV ONE (15:59)
[2020-08-04] MEDS: IVERMECTIN PO ONE (23:35)
[2020-08-05] MEDS: DUONEB 0.5 MG/3 MG (3 mL) NEB SCH ×5 (02:09→21:30)
[2020-08-05] MEDS: MUCOMYST 20% 200 MG/ML NEB SCH ×5 (02:09→21:30)
[2020-08-05] MEDS: PULMICORT NEB TX 0.5 MG NEB SCH ×3 (02:09→21:30)
[2020-08-05] MEDS: DECADRON JET NEB (RESP USE) NEB SCH ×3 (02:09→21:30)
[2020-08-05] MEDS: CARDIZEM INJ 125 MG VIAL 125 MG in NS 100 ML IV 100 ML IV PRN ×3 (03:27→22:48)
[2020-08-05] MEDS: OFIRMEV IV 1000 MG VIAL 1,000 MG/100 ML VIAL IV PRN (04:34)
[2020-08-05] MEDS: SOLU-Medrol 125 MG VIAL IVP SCH ×3 (05:07→23:30)
[2020-08-05] MEDS: ZOSYN VIAL 4.5 GRAMS 4.5 G in NS 100 ML IV + SPIKE MINIBAG* 100 ML IV SCH (05:07)
[2020-08-05] MEDS ORDERED: PHARMACY COMMENT IV NR (05:30)
[2020-08-05] MEDS ORDERED: PHARMACY COMMENT IV ONE (05:30)
[2020-08-05 06:03] LABS: ABG BASE EXCESS -6.4 mmol/L (-2.0-2.0)
[2020-08-05 06:04] LABS: ABG HCO3 15.3 mmol/L (22-26)
[2020-08-05 06:28] LABS: BASOPHILS % (AUTO) 0.3 % (0.2-1.0); HEMATOCRIT 30.5 % (36.0-47.0); HEMOGLOBIN 10.6 g/dL (12.0-16.0); LYMPHOCYTES # (AUTO) 0.4 X10^3/uL (1.3-2.9); LYMPHOCYTES % (AUTO) 3.5 % (21.0-51.0); MEAN CORPUSCULAR HEMOGLOBIN 34.7 pg (27.0-34.0); MEAN CORPUSCULAR HGB CONC 34.8 g/dL (33.0-35.0); MEAN CORPUSCULAR VOLUME 99.9 fL (80.0-100.0); MEAN PLATELET VOLUME 8.6 fL (7.4-11.0); MONOCYTES # (AUTO) 0.6 x10^3/uL (0.3-0.8); MONOCYTES % (AUTO) 5.3 % (0.0-13.0); NEUTROPHILS # (AUTO) 10.9 x10^3/uL (2.2-4.8); NEUTROPHILS % (AUTO) 90.9 % (42.0-75.0); PLATELET COUNT 241 X10^3/uL (150.0-450.0); RED BLOOD COUNT 3.06 X10^6/uL (3.5-5.4); RED CELL DISTRIBUTION WIDTH 12.8 % (11.6-16.5); WHITE BLOOD COUNT 11.9 X10^3/uL (3.6-10.0)
[2020-08-05 06:32] LABS: ALANINE AMINOTRANSFERASE 316 Units/L (12-78); ALBUMIN 2.3 g/dL (3.4-5.0); ALKALINE PHOSPHATASE 101 Units/L (46-116); ASPARTATE AMINO TRANSFERASE 105 Units/L (15-37); BLOOD UREA NITROGEN 27 mg/dL (7-18); CHLORIDE 108 mmol/L (98-107); COR CA(FOR HYPOALB) 10.4 mg/dL (8.5-10.1); COR NA(FOR HYPERGLY) 149 mmol/L (136-145); CREATININE 0.55 mg/dL (0.55-1.02); SODIUM 144 mmol/L (136-145); TOTAL PROTEIN 6.2 g/dL (6.4-8.2); eGFR NON BLACK RACES > 60 (>60)
[2020-08-05 06:43] LABS: VANCOMYCIN,TROUGH 10.7 ug/mL (15-20)
[2020-08-05] MEDS: K-RIDER 10 MEQ/NS 100 ML 10 MEQ/100 ML BAG IV PRN ×4 (06:44→18:28)
--- NOTE | 2020-08-05 06:53 | RAD ---
HISTORYShortness of breathSTUDYChest AP [id number]/30/2020FINDINGSPatient is rotated to the right. The heart is within normal limit s in size. Bilateral patchy and confluent ground-glass infiltrates are unchanged in degree or distrib ution from the prior examination. No pleural effusion is identified. Bony thorax is unremarkable.IMPR ESSIONNo significant change when compared to the prior examinationElectronically signed by: SOHAN TEMPLETON (Aug 05, 2020 06:51:34)
[2020-08-05] MEDS: VASOTEC INJ 2.5 MG VIAL IVP PRN (07:40)
[2020-08-05 08:14] LABS: BAND NEUTROPHILS % 4 % (0-10); PLATELET MORPHOLOGY COMMENT NORMAL (NORMAL)
[2020-08-05] MEDS: VANCOMYCIN IV *PREMIX 1.25 G/250 ML BAG 1.25 G/250 ML PIGGYBACK IV SCH ×4 (10:20→14:54)
[2020-08-05] MEDS: LOVENOX INJ 80 MG SYR SC SCH ×2 (10:21→23:30)
[2020-08-05] MEDS: PEPCID 20 MG IV PREMIX* 20 MG/50 ML BAG IV SCH ×2 (10:22→23:30)
[2020-08-05] MEDS: PROTONIX INJ 40 MG VIAL IVP SCH ×2 (10:23→23:30)
[2020-08-05] MEDS: PROCALAMINE 3 % 1,000 ML IV SCH (10:37)
[2020-08-05] MEDS: LACRI-LUBE S.O.P. AFFEYE SCH (10:37)
[2020-08-05] MEDS ORDERED: NS 100 ML IV 100 ML IV ONE ×3 (11:34→22:14)
[2020-08-05] MEDS: TOPROL XL PO SCH (11:46)
[2020-08-05] MEDS ORDERED: TOPROL XL PO ONE (11:46)
[2020-08-05] MEDS: COZAAR PO SCH (11:46)
[2020-08-05] MEDS: ZOSYN VIAL 4.5 GRAMS 4.5 G in NS 50 ML IV + SPIKE MINIBAG* 50 ML IV SCH (15:27)
[2020-08-05] MEDS: TYLENOL 325 MG TAB PO PRN (18:45)
[2020-08-05] MEDS ORDERED: CARDIZEM INJ 125 MG VIAL ONE (22:15)
[2020-08-05] MEDS: CATAPRES-TTS-3 TD SCH (23:30)
[2020-08-05] MEDS: IVERMECTIN PO ONE (23:30)
[2020-08-06] MEDS: LACRI-LUBE S.O.P. AFFEYE SCH ×3 (00:22→21:56)
[2020-08-06] MEDS: K-RIDER 10 MEQ/NS 100 ML 10 MEQ/100 ML BAG IV PRN ×4 (02:30→21:57)
[2020-08-06] MEDS: SOLU-Medrol 125 MG VIAL IVP SCH ×3 (05:50→21:57)
[2020-08-06] MEDS: ZOSYN VIAL 4.5 GRAMS 4.5 G in NS 50 ML IV + SPIKE MINIBAG* 50 ML IV SCH ×5 (05:50→21:57)
[2020-08-06] MEDS: VANCOMYCIN IV *PREMIX 1.25 G/250 ML BAG 1.25 G/250 ML PIGGYBACK IV SCH ×2 (05:50)
[2020-08-06 06:18] LABS: BASOPHILS % (AUTO) 0.3 % (0.2-1.0); HEMATOCRIT 30.8 % (36.0-47.0); HEMOGLOBIN 10.9 g/dL (12.0-16.0); LYMPHOCYTES # (AUTO) 0.7 X10^3/uL (1.3-2.9); LYMPHOCYTES % (AUTO) 6.8 % (21.0-51.0); MEAN CORPUSCULAR HGB CONC 35.2 g/dL (33.0-35.0); MEAN CORPUSCULAR VOLUME 102.2 fL (80.0-100.0); MEAN PLATELET VOLUME 8.8 fL (7.4-11.0); MONOCYTES # (AUTO) 0.5 x10^3/uL (0.3-0.8); NEUTROPHILS # (AUTO) 8.8 x10^3/uL (2.2-4.8); NEUTROPHILS % (AUTO) 87.9 % (42.0-75.0); PLATELET COUNT 243 X10^3/uL (150.0-450.0); RED BLOOD COUNT 3.01 X10^6/uL (3.5-5.4); RED CELL DISTRIBUTION WIDTH 13.3 % (11.6-16.5)
[2020-08-06 06:30] LABS: ALANINE AMINOTRANSFERASE 367 Units/L (12-78); ALBUMIN 2.2 g/dL (3.4-5.0); ALKALINE PHOSPHATASE 96 Units/L (46-116); ASPARTATE AMINO TRANSFERASE 140 Units/L (15-37); BLOOD UREA NITROGEN 31 mg/dL (7-18); CHLORIDE 114 mmol/L (98-107); COR CA(FOR HYPOALB) 10.4 mg/dL (8.5-10.1); COR NA(FOR HYPERGLY) 155 mmol/L (136-145); SODIUM 149 mmol/L (136-145); TOTAL PROTEIN 6.1 g/dL (6.4-8.2); eGFR NON BLACK RACES > 60 (>60)
[2020-08-06 06:39] LABS: CARBON DIOXIDE 13.2 mmol/L (21-32)
[2020-08-06] MEDS: CARDIZEM INJ 125 MG VIAL 125 MG in NS 100 ML IV 100 ML IV PRN ×2 (07:39→18:31)
--- NOTE | 2020-08-06 08:12 | RAD ---
HISTORYSOBSTUDYCHEST, 1 [id number]/31/2020.TECHNIQUEAP view of the chestFINDINGSPatient is significantly rotated. Cardiac and mediastinal contours are altered but similar to prior. Similar appearance of bilateral infiltrates. No discernible pleural effusion or pneumothorax.IMPRESSIONNo significant change.Electronically signed by: Bipin Moore (Aug 06, 2020 08:10:54)
[2020-08-06] MEDS ORDERED: TOPROL XL PO ONE (08:49)
[2020-08-06] MEDS: PULMICORT NEB TX 0.5 MG NEB SCH ×2 (09:28→20:40)
[2020-08-06] MEDS: DECADRON JET NEB (RESP USE) NEB SCH ×2 (09:28→20:40)
[2020-08-06] MEDS: MUCOMYST 20% 200 MG/ML NEB SCH ×3 (09:28→17:24)
[2020-08-06] MEDS: DUONEB 0.5 MG/3 MG (3 mL) NEB SCH ×4 (09:28→20:40)
[2020-08-06] MEDS: COZAAR PO SCH (10:35)
[2020-08-06] MEDS: TOPROL XL PO SCH (10:36)
[2020-08-06] MEDS: PROTONIX INJ 40 MG VIAL IVP SCH ×2 (10:36→21:56)
[2020-08-06] MEDS: PEPCID 20 MG IV PREMIX* 20 MG/50 ML BAG IV SCH ×2 (10:36→21:56)
[2020-08-06] MEDS: LOVENOX INJ 80 MG SYR SC SCH ×2 (10:37→21:56)
[2020-08-06 14:10] LABS: CREATININE 0.45 mg/dL (0.55-1.02); VANCOMYCIN,TROUGH 12.5 ug/mL (15-20)
[2020-08-06] MEDS: VANCOMYCIN HCL 500 MG, VANCOMYCIN HCL 1 G in D5W 250 ML IV 250 ML IV SCH ×2 (15:19→22:56)
[2020-08-06] MEDS ORDERED: NS 250 ML IV 250 ML IV ONE (15:29)
[2020-08-06] MEDS: NS 250 ML IV 250 ML IV SCH (15:32)
[2020-08-06] MEDS: TYLENOL 325 MG TAB PO PRN (16:01)
[2020-08-06] MEDS: OFIRMEV IV 1000 MG VIAL 1,000 MG/100 ML VIAL IV PRN (20:14)
[2020-08-06] MEDS: PROCALAMINE 3 % 1,000 ML IV SCH (21:56)
[2020-08-07] MEDS: OFIRMEV IV 1000 MG VIAL 1,000 MG/100 ML VIAL IV PRN ×3 (02:04→17:43)
[2020-08-07] MEDS: SOLU-Medrol 125 MG VIAL IVP SCH (05:22)
[2020-08-07] MEDS: VANCOMYCIN HCL 500 MG, VANCOMYCIN HCL 1 G in D5W 250 ML IV 250 ML IV SCH (05:22)
[2020-08-07] MEDS: ZOSYN VIAL 4.5 GRAMS 4.5 G in NS 50 ML IV + SPIKE MINIBAG* 50 ML IV SCH ×3 (05:22→22:08)
[2020-08-07] MEDS: NS 250 ML IV 250 ML IV SCH (05:23)
[2020-08-07 06:46] LABS: ALANINE AMINOTRANSFERASE 386 Units/L (12-78); ALBUMIN 2.1 g/dL (3.4-5.0); ALKALINE PHOSPHATASE 97 Units/L (46-116); ASPARTATE AMINO TRANSFERASE 156 Units/L (15-37); BLOOD UREA NITROGEN 31 mg/dL (7-18); CALCIUM 8.9 mg/dL (8.5-10.1); CARBON DIOXIDE 17.7 mmol/L (21-32); COR CA(FOR HYPOALB) 10.4 mg/dL (8.5-10.1); COR NA(FOR HYPERGLY) 164 mmol/L (136-145); CREATININE 0.59 mg/dL (0.55-1.02); TOTAL PROTEIN 5.7 g/dL (6.4-8.2); eGFR NON BLACK RACES > 60 (>60)
[2020-08-07 06:59] LABS: SODIUM 157 mmol/L (136-145)
[2020-08-07 07:00] LABS: CHLORIDE 120 mmol/L (98-107)
[2020-08-07 07:10] LABS: BASOPHILS % (AUTO) 0.2 % (0.2-1.0); HEMOGLOBIN 10.9 g/dL (12.0-16.0); LYMPHOCYTES # (AUTO) 0.7 X10^3/uL (1.3-2.9); LYMPHOCYTES % (AUTO) 7.7 % (21.0-51.0); MEAN CORPUSCULAR HEMOGLOBIN 33.8 pg (27.0-34.0); MEAN CORPUSCULAR VOLUME 102.2 fL (80.0-100.0); MONOCYTES # (AUTO) 0.5 x10^3/uL (0.3-0.8); MONOCYTES % (AUTO) 5.2 % (0.0-13.0); NEUTROPHILS # (AUTO) 7.9 x10^3/uL (2.2-4.8); NEUTROPHILS % (AUTO) 86.9 % (42.0-75.0); PLATELET COUNT 222 X10^3/uL (150.0-450.0); RED BLOOD COUNT 3.23 X10^6/uL (3.5-5.4); RED CELL DISTRIBUTION WIDTH 13.7 % (11.6-16.5); WHITE BLOOD COUNT 9.1 X10^3/uL (3.6-10.0)
[2020-08-07] MEDS ORDERED: TOPROL XL PO ONE (08:23)
[2020-08-07] MEDS: PULMICORT NEB TX 0.5 MG NEB SCH ×2 (09:00→20:41)
[2020-08-07] MEDS: DECADRON JET NEB (RESP USE) NEB SCH ×2 (09:00→20:41)
[2020-08-07] MEDS: DUONEB 0.5 MG/3 MG (3 mL) NEB SCH ×4 (09:00→20:41)
[2020-08-07] MEDS: LOVENOX INJ 80 MG SYR SC SCH ×2 (09:22→20:48)
[2020-08-07] MEDS: PEPCID 20 MG IV PREMIX* 20 MG/50 ML BAG IV SCH ×2 (09:24→20:47)
[2020-08-07] MEDS: PROTONIX INJ 40 MG VIAL IVP SCH ×2 (09:25→20:47)
[2020-08-07] MEDS: PROCALAMINE 3 % 1,000 ML IV SCH (09:25)
[2020-08-07] MEDS: COZAAR PO SCH ×2 (09:29→09:38)
[2020-08-07] MEDS: LACRI-LUBE S.O.P. AFFEYE SCH ×2 (09:30→20:46)
[2020-08-07] MEDS: TOPROL XL PO SCH ×2 (09:30→09:39)
[2020-08-07] MEDS: K-RIDER 10 MEQ/NS 100 ML 10 MEQ/100 ML BAG IV PRN ×2 (12:00→13:24)
[2020-08-07] MEDS ORDERED: DEXTROSE 5% 500 ML IV ONE (12:35)
[2020-08-07] MEDS ORDERED: PHARMACY COMMENT IV SCH (13:00)
[2020-08-07 14:44] LABS: CREATININE 0.41 mg/dL (0.55-1.02)
[2020-08-07] MEDS: D5W 1000 ML IV 1,000 ML IV SCH ×2 (15:45→20:46)
[2020-08-07] MEDS: VANCOMYCIN IV *PREMIX 1.5 G/300 ML BAG 1.5 G/300 ML PIGGYBACK IV SCH ×2 (15:46→22:08)
[2020-08-07] MEDS: CARDIZEM INJ 125 MG VIAL 125 MG in NS 100 ML IV 100 ML IV PRN (17:18)
[2020-08-08] MEDS: PROCALAMINE 3 % 1,000 ML IV SCH ×2 (00:25→09:17)
[2020-08-08] MEDS: D5W 1000 ML IV 1,000 ML IV SCH ×2 (05:29→13:26)
[2020-08-08] MEDS: VANCOMYCIN IV *PREMIX 1.5 G/300 ML BAG 1.5 G/300 ML PIGGYBACK IV SCH ×3 (05:29→22:12)
[2020-08-08] MEDS: ZOSYN VIAL 4.5 GRAMS 4.5 G in NS 50 ML IV + SPIKE MINIBAG* 50 ML IV SCH ×3 (05:30→23:51)
[2020-08-08 06:04] LABS: BASOPHILS % (AUTO) 0.2 % (0.2-1.0); EOSINOPHILS % (AUTO) 0.1 % (0.9-2.9); HEMATOCRIT 37.4 % (36.0-47.0); HEMOGLOBIN 11.9 g/dL (12.0-16.0); LYMPHOCYTES # (AUTO) 1.4 X10^3/uL (1.3-2.9); MEAN CORPUSCULAR HEMOGLOBIN 32.6 pg (27.0-34.0); MEAN CORPUSCULAR HGB CONC 31.8 g/dL (33.0-35.0); MEAN CORPUSCULAR VOLUME 102.4 fL (80.0-100.0); MEAN PLATELET VOLUME 9.2 fL (7.4-11.0); MONOCYTES # (AUTO) 0.5 x10^3/uL (0.3-0.8); MONOCYTES % (AUTO) 3.3 % (0.0-13.0); NEUTROPHILS # (AUTO) 13.1 x10^3/uL (2.2-4.8); NEUTROPHILS % (AUTO) 87.4 % (42.0-75.0); PLATELET COUNT 215 X10^3/uL (150.0-450.0); RED BLOOD COUNT 3.65 X10^6/uL (3.5-5.4); RED CELL DISTRIBUTION WIDTH 13.8 % (11.6-16.5)
[2020-08-08 06:11] LABS: ALANINE AMINOTRANSFERASE 347 Units/L (12-78); ALBUMIN 1.8 g/dL (3.4-5.0); ALKALINE PHOSPHATASE 77 Units/L (46-116); ASPARTATE AMINO TRANSFERASE 200 Units/L (15-37); BLOOD UREA NITROGEN 49 mg/dL (7-18); CALCIUM 8.7 mg/dL (8.5-10.1); CARBON DIOXIDE 19.4 mmol/L (21-32); COR CA(FOR HYPOALB) 10.5 mg/dL (8.5-10.1); CREATININE 1.06 mg/dL (0.55-1.02); TOTAL PROTEIN 4.7 g/dL (6.4-8.2); eGFR NON BLACK RACES 56 (>60)
[2020-08-08 06:21] LABS: CHLORIDE 117 mmol/L (98-107); SODIUM 153 mmol/L (136-145)
[2020-08-08 06:22] LABS: COR NA(FOR HYPERGLY) 165 mmol/L (136-145)
[2020-08-08] MEDS ORDERED: HumuLIN R SUBCUT STA (06:42)
[2020-08-08] MEDS ORDERED: HumuLIN R SUBCUT PRN (06:46)
[2020-08-08] MEDS: DECADRON JET NEB (RESP USE) NEB SCH ×2 (08:45→20:35)
[2020-08-08] MEDS: DUONEB 0.5 MG/3 MG (3 mL) NEB SCH ×4 (08:45→20:35)
[2020-08-08] MEDS: PULMICORT NEB TX 0.5 MG NEB SCH ×2 (08:45→20:35)
[2020-08-08] MEDS ORDERED: MYXREDLIN 100 UNIT/100 ML BAG 100 UNIT/100 ML PLAST..BAG IV PRN (08:54)
[2020-08-08] MEDS: PEPCID 20 MG IV PREMIX* 20 MG/50 ML BAG IV SCH ×2 (09:10→21:43)
[2020-08-08] MEDS: LOVENOX INJ 80 MG SYR SC SCH (09:14)
[2020-08-08] MEDS: COZAAR PO SCH (09:16)
[2020-08-08] MEDS: TOPROL XL PO SCH (09:18)
[2020-08-08] MEDS: LACRI-LUBE S.O.P. AFFEYE SCH ×2 (09:18→22:16)
[2020-08-08] MEDS: PROTONIX INJ 40 MG VIAL IVP SCH ×2 (09:18→22:20)
[2020-08-08] MEDS: MYXREDLIN 100 UNIT/100 ML BAG 100 UNIT/100 ML PLAST..BAG IV PRN (10:46)
[2020-08-08] MEDS ORDERED: HumuLIN R IV ONE (13:43)
[2020-08-08] MEDS ORDERED: NS 1/2 1000 ML IV 1,000 ML IV ONE (14:30)
[2020-08-08] MEDS: NS 1/2 1000 ML IV 500 ML IV ONE ×2 (14:32→14:40)
[2020-08-08] MEDS: NS 1/2 1000 ML IV 1,000 ML IV SCH ×2 (14:33→23:30)
[2020-08-08] MEDS: K-RIDER 10 MEQ/NS 100 ML 10 MEQ/100 ML BAG IV PRN (18:19)
[2020-08-08] MEDS: OFIRMEV IV 1000 MG VIAL 1,000 MG/100 ML VIAL IV PRN (19:56)
[2020-08-08] MEDS: SNACK - Diabetic Appropriate PO SCH ×2 (20:52)
[2020-08-08 22:15] LABS: CREATININE 1.87 mg/dL (0.55-1.02)
[2020-08-08 23:19] LABS: VANCOMYCIN,TROUGH > 50 ug/mL (15-20)
[2020-08-08] MEDS: ATIVAN INJ 2 MG VIAL IVP PRN (23:51)
[2020-08-09] MEDS ORDERED: LR 1000 ML IV 1,000 ML IV ONE ×2 (00:40→00:46)
[2020-08-09] MEDS ORDERED: NS 1/2 1000 ML IV 1,000 ML IV ONE ×3 (02:43→11:25)
[2020-08-09] MEDS: K-RIDER 10 MEQ/NS 100 ML 10 MEQ/100 ML BAG IV PRN (04:06)
[2020-08-09] MEDS ORDERED: PHARMACY COMMENT IV SCH (05:00)
[2020-08-09 05:17] LABS: ABG BASE EXCESS -6.8 mmol/L (-2.0-2.0); ABG HCO3 15.6 mmol/L (22-26)
[2020-08-09] MEDS: MYXREDLIN 100 UNIT/100 ML BAG 100 UNIT/100 ML PLAST..BAG IV PRN (05:42)
[2020-08-09] MEDS: ZOSYN VIAL 4.5 GRAMS 4.5 G in NS 50 ML IV + SPIKE MINIBAG* 50 ML IV SCH (05:43)
[2020-08-09 06:23] LABS: BASOPHILS % (AUTO) 0.1 % (0.2-1.0); EOSINOPHILS # (AUTO) 0.2 x10^3/uL (0.0-0.2); EOSINOPHILS % (AUTO) 1.2 % (0.9-2.9); HEMATOCRIT 32.1 % (36.0-47.0); HEMOGLOBIN 10.9 g/dL (12.0-16.0); LYMPHOCYTES # (AUTO) 1.2 X10^3/uL (1.3-2.9); LYMPHOCYTES % (AUTO) 9.3 % (21.0-51.0); MEAN CORPUSCULAR HEMOGLOBIN 33.8 pg (27.0-34.0); MEAN CORPUSCULAR HGB CONC 34.1 g/dL (33.0-35.0); MEAN CORPUSCULAR VOLUME 99.1 fL (80.0-100.0); MEAN PLATELET VOLUME 9.7 fL (7.4-11.0); MONOCYTES # (AUTO) 0.2 x10^3/uL (0.3-0.8); MONOCYTES % (AUTO) 1.5 % (0.0-13.0); NEUTROPHILS # (AUTO) 10.9 x10^3/uL (2.2-4.8); NEUTROPHILS % (AUTO) 87.9 % (42.0-75.0); PLATELET COUNT 106 X10^3/uL (150.0-450.0); RED BLOOD COUNT 3.24 X10^6/uL (3.5-5.4); RED CELL DISTRIBUTION WIDTH 13.1 % (11.6-16.5); WHITE BLOOD COUNT 12.4 X10^3/uL (3.6-10.0)
[2020-08-09 06:25] LABS: ALBUMIN 1.5 g/dL (3.4-5.0); CALCIUM 8.6 mg/dL (8.5-10.1); CARBON DIOXIDE 15.7 mmol/L (21-32); COR CA(FOR HYPOALB) 10.6 mg/dL (8.5-10.1); CREATININE 2.22 mg/dL (0.55-1.02); TOTAL PROTEIN 4.4 g/dL (6.4-8.2)
--- NOTE | 2020-08-09 07:57 | RAD ---
HISTORYFatigue sob cp hx of covid x weeksSTUDYCHEST x-ray, 1 VIEWCOMPARISONNoneFINDINGSPatient is rotated to the right. Bilateral lung infiltrates are probably due to pneumonia. There is likely improvement of infiltrate in the left lung but possible worsening of infiltrate in the right lung. Heart is probably normal in size. No pneumothorax is seen.IMPRESSIONLikely persistent bilateral pneumonia.Electronically signed by: Jamaal Hutchison (Aug 09, 2020 07:56:17)
[2020-08-09 08:13] LABS: CREATININE 2.3 mg/dL (0.55-1.02)
[2020-08-09 08:44] LABS: VANCOMYCIN,TROUGH 72.7 ug/mL (15-20)
[2020-08-09] MEDS: DECADRON JET NEB (RESP USE) NEB SCH ×2 (09:00→20:30)
[2020-08-09] MEDS ORDERED: LOVENOX INJ 30 MG SYR SC SCH (09:00)
[2020-08-09] MEDS: PULMICORT NEB TX 0.5 MG NEB SCH ×2 (09:00→20:30)
[2020-08-09] MEDS ORDERED: LOVENOX INJ 40 MG SYR SC SCH (09:00)
[2020-08-09] MEDS ORDERED: ALBUMIN HUMAN 25%- 100 ML 100 ML IV SCH (10:00)
[2020-08-09] MEDS: DUONEB 0.5 MG/3 MG (3 mL) NEB SCH ×4 (10:13→20:30)
[2020-08-09] MEDS: COZAAR PO SCH (10:42)
[2020-08-09] MEDS: TOPROL XL PO SCH (10:43)
[2020-08-09] MEDS: ATIVAN TAB 0.5 MG PO SCH ×2 (10:54→21:28)
[2020-08-09] MEDS: SOLU-Medrol 40 MG VIAL IVP SCH ×3 (10:58→21:28)
[2020-08-09] MEDS: PROTONIX INJ 40 MG VIAL IVP SCH ×2 (11:29→21:25)
[2020-08-09] MEDS: PEPCID 20 MG IV PREMIX* 20 MG/50 ML BAG IV SCH (11:30)
[2020-08-09] MEDS: NS 1/2 1000 ML IV 1,000 ML IV SCH ×3 (11:30→21:28)
[2020-08-09] MEDS: LACRI-LUBE S.O.P. AFFEYE SCH ×2 (11:44→21:28)
[2020-08-09] MEDS: CARDIZEM INJ 125 MG VIAL 125 MG in NS 100 ML IV 100 ML IV PRN (12:59)
[2020-08-09] MEDS: SPIKE MINIBAG IV SCH ×2 (14:41→21:28)
[2020-08-09] MEDS: ZOSYN IV SCH ×2 (14:41→21:28)
[2020-08-09] MEDS: NS IV SCH ×2 (14:41→21:28)
[2020-08-09] MEDS ORDERED: DIPRIVAN VIAL ONE (17:40)
[2020-08-09] MEDS ORDERED: EPHEDRINE SULFATE INJ ONE (17:40)
[2020-08-09] MEDS ORDERED: QUELICIN (OR ANECTINE) ONE (17:40)
[2020-08-09] MEDS ORDERED: KETALAR ONE (17:40)
[2020-08-09] MEDS ORDERED: NS 500 ML IV 500 ML IV ONE (17:45)
--- NOTE | 2020-08-09 18:12 | DR.UPDATE ---
H&P Update History and Physical Update: History and Physical reviewed and patient examined. Changes noted: NO Yes with the following: H&P Reviewed: Yes Patient was examined?: Yes Procedures (ALL) - Intubation Time out performed: Yes Sedative: ketamine (50mg, propofol 70mg) paralytic: succinylchline (100mg) Laryngoscope: fiber optic video scope (glidescope3, grade 1 view) ET tube size: 7.5 Tube secured depth: 21 Tube secured location: teeth Tube placement confirmation: visualized tube passing through cords, equal breath sounds bilaterally, no breath sounds over epigastrium, comfirmation by capnometer Intubation complications: none
[2020-08-09] MEDS ORDERED: DIPRIVAN PREMIX 1 GRAM IV 1,000 MG/100 ML VIAL ONE (18:14)
[2020-08-09] MEDS ORDERED: NS 100 ML IV 100 ML IV ONE (18:22)
[2020-08-09] MEDS ORDERED: VERSED ONE (18:22)
[2020-08-09] MEDS: VERSED 100 MG in NS 100 ML IV 80 ML IV PRN (19:27)
[2020-08-09] MEDS: DIPRIVAN PREMIX 1 GRAM IV 1,000 MG/100 ML VIAL IV PRN (19:30)
--- NOTE | 2020-08-09 20:41 | RAD ---
EXAM: CHEST X-RAYHISTORY: Intubation. The interspace and pulse. CXR/pelvisTECHNIQUE: AP chest x-ray.COMPARISON: CXR dated 08/08/2020.FINDINGS:ET tube in situ with distal tip approximately 4.3 cm above the ivis (adequate position).There is mild prominence of the bronchopulmonary markings, especially in the right middle and lower lung whit[place], in keeping with bronchitis and interstitial pneumonia (e.g. Covid pneumonia) in the appropriate clinical setting; DDX includes mild noncardiogenic pulmonary congestion in the appropriate clinical setting. Clinical correlation is advised.No focal lung consolidation/mass, pleural effusion, or pneumothorax is seen.The heart size and mediastinum are within normal limits. The visualized bony structures are within normal limits.IMPRESSION:1. ET tube in situ with distal tip approximately 4.3 cm above the ivis (adequate position).2. Mild prominence of the bronchopulmonary markings, especially in the right middle and lower lung whitman, with mild interval progression of infiltrates compared with the previous exam, in keeping with bronchitis and interstitial pneumonia (e.g. Covid pneumonia) in the appropriate clinical setting; DDX includes mild noncardiogenic pulmonary congestion in the appropriate clinical setting.3. Recommend clinical correlation and appropriate follow-up evaluation (consider high-resolution noncontrast chest CT) for confirmation and further characterization as clinically warranted.Electronically signed by: Arianna Gallego (Aug 09, 2020 20:39:41)
[2020-08-09] MEDS: SNACK - Diabetic Appropriate PO SCH ×2 (21:26→21:27)
[2020-08-10] MEDS ORDERED: NS 1/2 1000 ML IV 1,000 ML IV ONE ×4 (01:39→21:35)
[2020-08-10] MEDS: NS 1/2 1000 ML IV 1,000 ML IV SCH ×4 (01:40→22:45)
[2020-08-10 04:53] LABS: ABG BASE EXCESS -11.6 mmol/L (-2.0-2.0); ABG HCO3 13.1 mmol/L (22-26)
[2020-08-10] MEDS: SOLU-Medrol 40 MG VIAL IVP SCH ×3 (05:27→22:45)
[2020-08-10] MEDS: NS IV SCH ×3 (05:42→22:45)
[2020-08-10] MEDS: ZOSYN IV SCH ×3 (05:42→22:45)
[2020-08-10] MEDS: SPIKE MINIBAG IV SCH ×3 (05:42→22:45)
[2020-08-10 05:57] LABS: BASOPHILS % (AUTO) 0 % (0.2-1.0); EOSINOPHILS % (AUTO) 0.1 % (0.9-2.9); HEMATOCRIT 25.3 % (36.0-47.0); HEMOGLOBIN 8.3 g/dL (12.0-16.0); LYMPHOCYTES # (AUTO) 0.3 X10^3/uL (1.3-2.9); LYMPHOCYTES % (AUTO) 3.8 % (21.0-51.0); MEAN CORPUSCULAR HEMOGLOBIN 32.3 pg (27.0-34.0); MEAN CORPUSCULAR HGB CONC 32.9 g/dL (33.0-35.0); MEAN CORPUSCULAR VOLUME 98.3 fL (80.0-100.0); MEAN PLATELET VOLUME 9.6 fL (7.4-11.0); MONOCYTES # (AUTO) 0.2 x10^3/uL (0.3-0.8); MONOCYTES % (AUTO) 1.8 % (0.0-13.0); NEUTROPHILS # (AUTO) 8.3 x10^3/uL (2.2-4.8); NEUTROPHILS % (AUTO) 94.3 % (42.0-75.0); PLATELET COUNT 87 X10^3/uL (150.0-450.0); RED BLOOD COUNT 2.58 X10^6/uL (3.5-5.4); RED CELL DISTRIBUTION WIDTH 13.8 % (11.6-16.5); WHITE BLOOD COUNT 8.8 X10^3/uL (3.6-10.0)
[2020-08-10 06:08] LABS: ALBUMIN 1.3 g/dL (3.4-5.0); CALCIUM 7.9 mg/dL (8.5-10.1); COR CA(FOR HYPOALB) 10.1 mg/dL (8.5-10.1); CREATININE 3.12 mg/dL (0.55-1.02); TOTAL PROTEIN 3.9 g/dL (6.4-8.2)
[2020-08-10] MEDS: DIPRIVAN PREMIX 1 GRAM IV 1,000 MG/100 ML VIAL IV PRN ×3 (06:09→17:49)
[2020-08-10 06:18] LABS: CARBON DIOXIDE 13.9 mmol/L (21-32)
[2020-08-10 07:07] LABS: BAND NEUTROPHILS % 2 % (0-10); PLATELET MORPHOLOGY COMMENT NORMAL (NORMAL)
--- NOTE | 2020-08-10 07:47 | RAD ---
HISTORYSOBSTUDYCHEST, 1 [id number]/04/2021.TECHNIQUEAP view of the chestFINDINGSET tube in good position. Cardiac and mediastinal contours appear normal. Patient is mildly rotated. Mild improvement in patchy bilateral airspace opacities and interstitial opacities.No definite pleural effusion or pneumothorax.IMPRESSIONMild improvement in patchy bilateral airspace opacities may represent improving pneumonia.Electronically signed by: Bipin Moore (Aug 10, 2020 07:46:25)
[2020-08-10] MEDS: PROTONIX INJ 40 MG VIAL IVP SCH ×2 (09:00→22:45)
[2020-08-10] MEDS: DECADRON JET NEB (RESP USE) NEB SCH ×2 (09:37→21:41)
[2020-08-10] MEDS: DUONEB 0.5 MG/3 MG (3 mL) NEB SCH ×4 (09:37→21:41)
[2020-08-10] MEDS: PULMICORT NEB TX 0.5 MG NEB SCH ×2 (09:37→21:41)
[2020-08-10] MEDS: PEPCID 20 MG IV PREMIX* 20 MG/50 ML BAG IV SCH (12:02)
[2020-08-10] MEDS: LACRI-LUBE S.O.P. AFFEYE SCH ×2 (12:03→21:00)
[2020-08-10] MEDS: HEPARIN SODIUM INJ 5000 UNITS SC SCH ×2 (12:03→18:21)
[2020-08-10] MEDS: ALBUMIN HUMAN 25%- 100 ML 200 ML IV SCH (12:04)
--- NOTE | 2020-08-10 12:05 | PCM.PROG ---
Progress Note - Progress Note for Day of Date of Exam: 08/04/20 - Subjective Subjective: WAS ADMITTED FOR TREATMENT OF PNEUMONIA DUE TO COVID-19, RESPIRATORY FAILURE, AND HYPOXIA. SHE HAS POSITIVE BLOOD CULTURES. SHE HAS BEEN ON THE MECHANICAL VENT, BUT WAS EXTUBATED YESTERDAY. SHE IS CURRENTLY ON HEATED HIGH FLOW OXYGEN. HER OXYGEN SATURATIONS ON THESE SETTINGS HAVE BEEN 86-91% THIS MORNING AND THROUGHOUT THE NIGHT. SHE IS DROWSY THIS MORNING, BUT DOES OPEN EYES TO VERBAL STIMULI. SHE IS SLUGGISH TO FOLLOW COMMANDS. ON EXAMINATION BILATERAL LUNGS NOTED WITH RALES THROUGHOUT. ABDOMEN IS ROUND, SOFT, AND NON-TENDER WITH NORMAL BOWEL SOUNDS NOTED IN ALL QUADRANTS. HER VITALS THIS MORNING ARE: 98.5-87-25-87%-163/71. LABS WERE OBTAINED. ABNORMAL LAB VALUES INCLUDE THE FOLLOWING: WBC 11.5, RBC 3.02, HGB 10.8, HCT 31.3, POTASSIUM 3.2, BUN 28, GLUCOSE 286, FERRITIN 2987, TOTAL BILI 2.40, AST 132, ALT 271, CRP 60.80, TOTAL PROTEIN 6.1, ALBUMIN 2.2. AN ABG WAS OBTAINED THIS MORNING AND REVEALED: PH 7.510, PC02 26, P02 54.0, HC03 20.7, 02 SAT 91, A-a GRADIENT 284, FI02 52.0. REPEAT BLOOD CULTURES ARE POSITIVE FOR STAPHYLOCOCCUS EPIDERMIDIS AND STAPHYLOCOCCUS HOMINUIS. CENTRAL LINE CULTURE IS POSITIVE FOR STAPHYLOCOCCUS EPIDERMIDIS AND STAPHYLOCOCCUS HOMINUIS. A CHEST XRAY WAS OBTAINED AND REVEALED: The trachea is midline. Endotracheal tube has been removed. The cardiac silhouette is stable. Bilateral patchy pulmonary infiltrates unchanged. No pneumothorax. The bony thorax is unremarkable. SHE IS CURRENTLY RECEIVING PROCAL AT 40 ML/HR, VANCOMYCIN 1G IV Q12H, ZOSYN 4.5G IV TID, SOLU-MEDROL 80MG IV Q8H, LASIX 40MG IV Q12H, ATIVAN 0.5MG IV Q8H PRN, PEPCID 20MG IV BID, PROTONIX 40MG IV BID, LOVENOX 80MG SC BID, DUONEBS QID, PULMICORT NEBS BID, A CLONIDINE PATCH, THE POTASSIUM AND MAGNESIUM PROTOCOLS. WE WILL CONTINUE WITH CURRENT PLAN OF CARE TODAY. OTHERWISE, WE WILL FOLLOW UP WITH AM LABS, CHEST XRAY, ABG, AND CONTINUE TO MONITOR. TIME SPENT ON CLINICAL ASSESSMENT, PHYSICAL EXAMINATION, REVIEWING LABS/IMAGING, DECISION MAKING, AND DOCUMENTATION MORE THAN 75 MINUTES. - Past Medical Family Social History Past Med/Fam/Surg Hx: No changes since H&P Allergies: Allergies codeine Allergy (Verified 07/22/20 11:49) meperidine [From Demerol] Allergy (Verified 07/22/20 11:49) Tetanus Vaccines and Toxoid Allergy (Verified 07/22/20 11:49) - Review of Systems ROS: No change since H&P - Vital Signs and I&O's Vital Signs: Temperature 97.2 F Pulse Rate [Right Brachial] 92 Pulse Rate 55 Respiratory Rate 23 Blood Pressure [Left Radial 114/41 Artery] Blood Pressure [Right Arm] 105/52 Blood Pressure 103/53 O2 Sat by Pulse Oximetry 100 Intake and Output: Intake & Output 08/08/20 08/09/20 08/10/20 08/11/20 11:59 11:59 11:59 11:59 Intake Total 4455 / 4455 5680 / 5680 4428 / 4428 Output Total 2250 / 2250 850 / 850 120 / 120 Balance 2205 / 2205 4830 / 4830 4308 / 4308 - Physical Exam Oriented: Unable to test Eyes: Normal Ear: Normal Nose: Normal Throat: Normal Respiratory: Generalized, Diminished, Rales Cardiovascular: Normal : Normal Auscultation: Bowel Sounds: Normal Palpation: Normal Tenderness: Normal Skin: Normal Musculoskeletal: Normal Psychiatric: Normal Mood Description: Calm Affect: Normal Speech Pattern: Artificially Ventilated - Laboratory and Diagnostics Result Diagrams: 08/10/20 04:40 08/10/20 04:40 Labs: 08/07/20 13:40 Urine,Clean Catch Urine Culture - Final 08/02/20 16:20 Neck - Final Staphylococcus Hominis Staphylococcus Epidermidis 07/31/20 11:05 Blood Blood Culture - Final Staphylococcus Hominis 07/31/20 11:00 Blood Blood Culture - Final Staphylococcus Epidermidis 07/22/20 11:53 Blood Blood Culture - Final 07/22/20 12:02 Blood Blood Culture - Final 07/24/20 22:37 Sputum - Endotracheal Wash Sputum Culture - Final 07/24/20 22:37 Sputum - Endotracheal Wash - Final 07/22/20 12:18 Sputum - Expectorated Sputum Sputum Culture - Final 07/22/20 12:18 Sputum - Expectorated Sputum - Final Laboratory WBC 8.8 X10^3/uL (3.6-10.0) 08/10/20 04:40 RBC 2.58 X10^6/uL (3.5-5.4) L 08/10/20 04:40 Hgb 8.3 g/dL (12.0-16.0) L D 08/10/20 04:40 Hct 25.3 % (36.0-47.0) L 08/10/20 04:40 MCV 98.3 fL (80.0-100.0) 08/10/20 04:40 MCH 32.3 pg (27.0-34.0) 08/10/20 04:40 MCHC 32.9 g/dL (33.0-35.0) L 08/10/20 04:40 RDW 13.8 % (11.6-16.5) 08/10/20 04:40 Plt Count 87 X10^3/uL (150.0-450.0) L 08/10/20 04:40 Plt Count Comment Decreased (ADEQUATE) A 08/10/20 04:40 MPV 9.6 fL (7.4-11.0) 08/10/20 04:40 Neut % (Auto) 94.3 % (42.0-75.0) H 08/10/20 04:40 Lymph % (Auto) 3.8 % (21.0-51.0) L 08/10/20 04:40 [place] % (Auto) 1.8 % (0.0-13.0) 08/10/20 04:40 Eos % (Auto) 0.1 % (0.9-2.9) L 08/10/20 04:40 Baso % (Auto) 0 % (0.2-1.0) L 08/10/20 04:40 Neut # (Auto) 8.3 x10^3/uL (2.2-4.8) H 08/10/20 04:40 Lymph # (Auto) 0.3 X10^3/uL (1.3-2.9) L 08/10/20 04:40 [place] # (Auto) 0.2 x10^3/uL (0.3-0.8) L 08/10/20 04:40 Eos # (Auto) 0.0 x10^3/uL (0.0-0.2) 08/10/20 04:40 Baso # (Auto) 0.0 X10^3/uL (0.0-0.1) 08/10/20 04:40 Absolute Nucleated RBC 0.1 /100WBC 08/10/20 04:40 Total Counted 100 08/10/20 04:40 Neutrophils % (Manual) 95 % (39-76) H 08/10/20 04:40 Band Neutrophils % 2 % (0-10) 08/10/20 04:40 Lymphocytes % (Manual) 2 % (13-43) L 08/10/20 04:40 Monocytes % (Manual) 1 % (4-9) L 08/10/20 04:40 Plt Morphology Comment Normal (NORMAL) 08/10/20 04:40 RBC Morphology Normal (NORMAL) 08/10/20 04:40 Hypochromasia Slight A 07/29/20 04:13 Macrocytosis 1+ A 07/30/20 04:13 D-Dimer 3.48 ug/ml (0.0-0.57) H* 08/03/20 04:35 Sample Site [place] 08/10/20 04:46 ABG pH 7.310 (7.35-7.45) L 08/10/20 04:46 ABG pCO2 26.0 mmHg (35.0-45.0) L 08/10/20 04:46 ABG pO2 298.0 mmHg (80.0-100.0) H 08/10/20 04:46 ABG HCO3 13.1 mmol/L (22-26) L* 08/10/20 04:46 ABG O2 Saturation 100.0 % (90-100) 08/10/20 04:46 ABG Base Excess -11.6 mmol/L (-2.0-2.0) L 08/10/20 04:46 Alex Test N/a 08/10/20 04:46 A-a Gradient 383.0 mmHg 08/10/20 04:46 FiO2 100.0 08/10/20 04:46 Blood Gas Comments Marie well ae 08/10/20 04:46 Sodium 142 mmol/L (136-145) 08/10/20 04:40 Corrected Sodium 146 mmol/L (136-145) H 08/10/20 04:40 Potassium 4.3 mmol/L (3.5-5.1) 08/10/20 04:40 Chloride 111 mmol/L (98-107) H 08/10/20 04:40 Carbon Dioxide 13.9 mmol/L (21-32) L* 08/10/20 04:40 BUN 86 mg/dL (7-18) H 08/10/20 04:40 Creatinine 3.12 mg/dL (0.55-1.02) H 08/10/20 04:40 Est GFR (MDRD) Af Amer 20 (>60) L 08/10/20 04:40 Est GFR (MDRD) Non-Af 16 (>60) L 08/10/20 04:40 Glucose 269 mg/dL (65-99) H 08/10/20 04:40 POC Glucose (mg/dL) 251 mg/dL (65-99) H 08/10/20 11:09 Calcium 7.9 mg/dL (8.5-10.1) L 08/10/20 04:40 Corrected Calcium 10.1 mg/dL (8.5-10.1) 08/10/20 04:40 Magnesium 2.4 mg/dL (1.7-2.9) 07/26/20 04:56 Ferritin 2987 ng/mL (8-252) H 08/04/20 05:35 Total Bilirubin 0.70 mg/dL (0.2-1.0) 08/10/20 04:40 AST 437 Units/L (15-37) H 08/10/20 04:40 ALT 368 Units/L (12-78) H 08/10/20 04:40 Alkaline Phosphatase 96 Units/L (46-116) 08/10/20 04:40 Creatine Kinase 330 Units/L (26-192) H 07/22/20 11:53 CK-MB (CK-2) 1.6 ng/mL (0-4.0) 07/22/20 11:53 CK/CKMB % Calc 0.5 % (<4) 07/22/20 11:53 Troponin I 0.04 ng/mL (0-1.5) 07/22/20 11:53 C-Reactive Protein 60.50 mg/L (0-3.0) H 08/10/20 04:40 B-Natriuretic Peptide 129 pg/mL (0-79) H 07/22/20 11:53 Total Protein 3.9 g/dL (6.4-8.2) L 08/10/20 04:40 Albumin 1.3 g/dL (3.4-5.0) L 08/10/20 04:40 Globulin 2.6 g/dL (2.5-4.5) 08/10/20 04:40 Prealbumin 13.5 mg/dL (18-35.7) L 07/26/20 04:56 Albumin/Globulin Ratio 0.5 Ratio (1.1-2.1) L 08/10/20 04:40 Specimen Type Catherized urine 07/31/20 11:32 Urine Color Yellow (YELLOW) 07/31/20 11:32 Urine Appearance Hazy (CLEAR) 07/31/20 11:32 Urine pH 5.0 (5.0 - 8.0) 07/31/20 11:32 Ur Specific [place] 1.020 (1.000-1.030) 07/31/20 11:32 Urine Protein 2+ (NEGATIVE) 07/31/20 11:32 Urine Glucose (UA) 4+ (NEGATIVE) 07/31/20 11:32 Urine Ketones 3+ (NEGATIVE) 07/31/20 11:32 Urine Occult Blood 5+ (NEGATIVE) 07/31/20 11:32 Urine Nitrite Negative (NEGATIVE) 07/31/20 11:32 Urine Bilirubin Negative (NEGATIVE) 07/31/20 11:32 Urine Urobilinogen Normal (NORMAL) 07/31/20 11:32 Ur Leukocyte Esterase Negative (NEGATIVE) 07/31/20 11:32 Urine RBC Tntc /HPF (0-3) A 07/31/20 11:32 Urine WBC 3-5 /HPF (0-5) 07/31/20 11:32 Ur Squamous Epith Cells Rare /HPF (NEGATIVE) 07/31/20 11:32 Urine Bacteria Negative /HPF (NEGATIVE) 07/31/20 11:32 Urine Mucus Few /HPF (NEGATIVE) 07/31/20 11:32 Ur Culture Indicated? No/not indicated 07/31/20 11:32 Vancomycin Trough 72.7 ug/mL (15-20) H* 08/09/20 07:47 Random Vancomycin 50.1 ug/mL 08/10/20 08:33 SARS CoV-2 RNA Rapid CARMEN Positive (NEGATIVE) A 07/22/20 12:18 Miscellaneous Test Covid 19 08/04/20 15:55 Blood Type O POSITIVE 07/25/20 02:28 - Plan (1) Pneumonia due to 2019 novel coronavirus Status: Acute Plan: NS AT 40 ML/HR, PROCAL AT 40 ML/HR, VANCOMYCIN 1G IV Q12H, ZOSYN 4.5G IV TID, SOLU-MEDROL 80MG IV Q8H, ATIVAN 0.5MG IV Q8H PRN, PEPCID 20MG IV BID, PROTONIX 40MG IV BID, LOVENOX 80MG SC BID, DUONEBS QID, PULMICORT NEBS BID, THE POTASSIUM AND MAGNESIUM PROTOCOLS, AND DIPROVAN FOR SEDATION, HER HOME MEDICATIONS WERE RESUMED. MECHANICAL VENT (2) Hypoxia Status: Acute (3) Hypothyroidism Status: Chronic Qualifiers: Hypothyroidism type: acquired Qualified Code(s): E03.9 - Hypothyroidism, u nspecified
[2020-08-10] MEDS ORDERED: NS 100 ML IV 100 ML IV ONE ×2 (14:38→18:07)
[2020-08-10] MEDS ORDERED: VERSED ONE (14:38)
[2020-08-10] MEDS: VERSED 100 MG in NS 100 ML IV 80 ML IV PRN ×2 (15:30→15:36)
[2020-08-10] MEDS: ATIVAN TAB 0.5 MG PO SCH ×2 (15:33→22:00)
[2020-08-10] MEDS: COZAAR PO SCH (15:34)
[2020-08-10] MEDS: TOPROL XL PO SCH (15:36)
[2020-08-10] MEDS: DOPAMINE IV PREMIX 400 MG/250 ML 400 MG/250 ML BAG IV PRN (17:23)
[2020-08-10] MEDS: CARDIZEM INJ 125 MG VIAL 125 MG in NS 100 ML IV 100 ML IV PRN ×2 (17:44→18:30)
[2020-08-10] MEDS ORDERED: CARDIZEM INJ 125 MG VIAL ONE (18:07)
[2020-08-10] MEDS: MUCOMYST 20% 200 MG/ML NEB SCH ×2 (18:23→21:41)
[2020-08-10] MEDS ORDERED: LANOXIN INJ IVP ONE (21:29)
[2020-08-10] MEDS: SNACK - Diabetic Appropriate PO SCH (22:45)
[2020-08-11] MEDS: CARDIZEM INJ 125 MG VIAL 125 MG in NS 100 ML IV 100 ML IV PRN ×4 (02:20→19:00)
[2020-08-11] MEDS: VERSED 100 MG in NS 100 ML IV 80 ML IV PRN ×2 (02:50→16:45)
[2020-08-11] MEDS: HEPARIN SODIUM INJ 5000 UNITS SC SCH ×3 (03:16→17:59)
[2020-08-11] MEDS: DIPRIVAN PREMIX 1 GRAM IV 1,000 MG/100 ML VIAL IV PRN ×2 (03:43→12:31)
[2020-08-11 04:33] LABS: ABG BASE EXCESS -16.4 mmol/L (-2.0-2.0)
[2020-08-11 05:43] LABS: BASOPHILS % (AUTO) 0.1 % (0.2-1.0); HEMATOCRIT 28.8 % (36.0-47.0); HEMOGLOBIN 9.3 g/dL (12.0-16.0); LYMPHOCYTES # (AUTO) 0.4 X10^3/uL (1.3-2.9); LYMPHOCYTES % (AUTO) 1.8 % (21.0-51.0); MEAN CORPUSCULAR HEMOGLOBIN 31.7 pg (27.0-34.0); MEAN CORPUSCULAR HGB CONC 32.3 g/dL (33.0-35.0); MEAN CORPUSCULAR VOLUME 98.3 fL (80.0-100.0); MEAN PLATELET VOLUME 9.8 fL (7.4-11.0); MONOCYTES # (AUTO) 0.5 x10^3/uL (0.3-0.8); MONOCYTES % (AUTO) 2.5 % (0.0-13.0); NEUTROPHILS # (AUTO) 19.5 x10^3/uL (2.2-4.8); NEUTROPHILS % (AUTO) 95.6 % (42.0-75.0); PLATELET COUNT 118 X10^3/uL (150.0-450.0); RED BLOOD COUNT 2.94 X10^6/uL (3.5-5.4); RED CELL DISTRIBUTION WIDTH 13.3 % (11.6-16.5); WHITE BLOOD COUNT 20.4 X10^3/uL (3.6-10.0)
[2020-08-11 05:45] LABS: ALBUMIN 1.8 g/dL (3.4-5.0); CALCIUM 8.4 mg/dL (8.5-10.1); COR CA(FOR HYPOALB) 10.2 mg/dL (8.5-10.1); CREATININE 3.65 mg/dL (0.55-1.02); TOTAL PROTEIN 4.7 g/dL (6.4-8.2)
[2020-08-11 06:04] LABS: CARBON DIOXIDE 9.7 mmol/L (21-32)
[2020-08-11] MEDS: ZOSYN IV SCH ×3 (06:20→22:00)
[2020-08-11] MEDS: NS IV SCH ×3 (06:20→22:00)
[2020-08-11] MEDS: SOLU-Medrol 40 MG VIAL IVP SCH (06:20)
[2020-08-11] MEDS: SPIKE MINIBAG IV SCH ×3 (06:20→22:00)
[2020-08-11] MEDS: NS 1/2 1000 ML IV 1,000 ML IV SCH (06:23)
[2020-08-11 06:38] LABS: BAND NEUTROPHILS % 2 % (0-10); PLATELET MORPHOLOGY COMMENT NORMAL (NORMAL)
--- NOTE | 2020-08-11 08:05 | RAD ---
HISTORYSOBSTUDYCHEST, 1 [id number]/05/2021FINDINGSThere is more opacity in the right lung than previously. This represents a progression of pneumonia.Minimal opacity in the left lung is unchanged.No significant effusion. No pneumothorax.Heart size is normal.Bones are unremarkable.The endotracheal tube is anatomic in position in the trachea. EKG leads are noted.IMPRESSION1. Bilateral pneumonia, progressed on the rightElectronically signed by: Harsh Hidalgo (Aug 11, 2020 08:04:12)
[2020-08-11] MEDS ORDERED: TOPROL XL PO ONE (08:24)
[2020-08-11] MEDS: DUONEB 0.5 MG/3 MG (3 mL) NEB SCH ×4 (08:33→21:25)
[2020-08-11] MEDS: PULMICORT NEB TX 0.5 MG NEB SCH ×2 (08:33→21:25)
[2020-08-11] MEDS: DECADRON JET NEB (RESP USE) NEB SCH ×2 (08:33→21:25)
[2020-08-11] MEDS: MUCOMYST 20% 200 MG/ML NEB SCH ×2 (08:33→21:25)
--- NOTE | 2020-08-11 08:37 | PCM.PROG ---
Progress Note - Progress Note for Day of Date of Exam: 08/09/20 - Subjective Subjective: WAS ADMITTED FOR TREATMENT OF PNEUMONIA DUE TO COVID-19, RESPIRATORY FAILURE, AND HYPOXIA. SHE WAS WEANED OFF OF THE VENT LAST SUNDAY AND CURRENTLY ON HEATED HIGH FLOW OXYGEN. HER OXYGEN SATURATIONS HAVE BEEN 88- 92% THIS MORNING AND THROUGHOUT THE NIGHT. SHE HAS BEEN HYPOTENSIVE THROUGHOUT THE NIGHT. SHE HAS ALSO HAD DECREASED OXYGEN SATURATIONS UPON MUCH MOVEMENT. SHE CONTINUES WITH DROWSINESS. ON EXAMINATION, HEART IS REGULAR IN RATE AND RHYTHM. SHE IS TACHYPNEIC WITH HR IN THE 30s. BILATERAL LUNGS NOTED WITH RALES THROUGHOUT. ABDOMEN IS ROUND, SOFT, AND NON-TENDER WITH NORMAL BOWEL SOUNDS NOTED IN ALL QUADRANTS. HER VITALS THIS MORNING ARE: 99.9-90-30-90%HHF-114/41. LABS WERE OBTAINED. ABNORMAL LAB VALUES INCLUDE THE FOLLOWING: WBC 12.4, RBC 3.24, HGB 10.9, HCT 32.1, PLT COUNT 106, SODIUM 151, CHLORIDE 115, CARBON DIOXIDE 15.7, BUN 71, CREATININE 2.22, GLUCOSE 215, AST 352, ALT 334, CRP 30.40, TOTAL PROTEIN 4.4, ALBUMIN 1.5. AN ABG WAS OBTAINED THIS MORNING AND REVEALED: PH 7.440, PC02 23.0, P02 54.0, HC03 15.6, 02 SAT 89.0, BASE EXCESS -6.8, A-a GRADIENT 595, FI02 95.0. REPEAT BLOOD CULTURES ARE POSITIVE FOR STAPHYLOCOCCUS EPIDERMIDIS AND STAPHYLOCOCCUS HOMINUIS. CENTRAL LINE CULTURE IS POSITIVE FOR STAPHYLOCOCCUS EPIDERMIDIS AND STAPHYLOCOCCUS HOMINIS. A CHEST XRAY WAS OBTAINED AND REVEALED: Likely persistent bilateral pneumonia. SHE IS CURRENTLY RECEIVING 1/2NS AT 125 ML/HR, PROCAL AT 40 ML/HR, VANCOMYCIN 1G IV Q12H, ZOSYN 2.25G IV TID, DEXAMETHASONE PO DAILY, DEXAMETHASONE IN NEB [place], ATIVAN 0.5MG IV Q8H PRN, PEPCID 20MG IV DAILY, PROTONIX 40MG IV BID, LOVENOX 30MG SC DAILY, DUONEBS QID, PULMICORT NEBS BID, A CLONIDINE PATCH, ZOFRAN 8MG IV Q8H PRN,TUSSIONEX 5ML PO Q12H PRN, ENALAPRIL 1.25MG IV Q6H PRN, LABETALOL 10MG IV Q15M PRN, HUMULIN R SLIDING SCALE, COZAAR 100MG PO DAILY, TOPROL XL 200MG PO DAILY, AND THE POTASSIUM AND MAGNESIUM PROTOCOLS. TODAY, WE WILL DISCONTINUE THE PROCAL, INCREASE IVF TO 150 ML/HR, BOLUS 1 LITER IVF, D/C THE DEXAMETHASONE AND START SOLU-MEDROL 80MG IV Q8H, CHANGE LORAZEPAM TO 0.5MG PO BID, AND ADD ALBUMIN 25% IV DAILY. WE WILL CONTINUE WITH CURRENT PLAN OF CARE TODAY. OTHERWISE, WE WILL FOLLOW UP WITH AM LABS, CHEST XRAY, ABG, AND CONTINUE TO MONITOR. TIME SPENT ON CLINICAL ASSESSMENT, PHYSICAL EXAMINATION, REVIEWING LABS/IMAGING, DECISION MAKING, AND DOCUMENTATION MORE THAN 75 MINUTES. - Past Medical Family Social History Past Med/Fam/Surg Hx: No changes since H&P Allergies: Allergies codeine Allergy (Verified 07/22/20 11:49) meperidine [From Demerol] Allergy (Verified 07/22/20 11:49) Tetanus Vaccines and Toxoid Allergy (Verified 07/22/20 11:49) - Review of Systems ROS: No change since H&P - Vital Signs and I&O's Vital Signs: Temperature 98.0 F Pulse Rate [Right Brachial] 92 Pulse Rate 67 Respiratory Rate 19 Blood Pressure [Left Radial 114/41 Artery] Blood Pressure [Right Arm] 105/52 Blood Pressure 146/66 O2 Sat by Pulse Oximetry 97 Intake and Output: Intake & Output 08/08/20 08/09/20 08/10/20 08/11/20 11:59 11:59 11:59 11:59 Intake Total 4455 / 4455 5680 / 5680 4428 / 4428 4557 / 4557 Output Total 2250 / 2250 850 / 850 120 / 120 70 / 70 Balance 2205 / 2205 4830 / 4830 4308 / 4308 4487 / 4487 - Physical Exam Oriented: Unable to test Eyes: Normal Ear: Normal Nose: Normal Throat: Normal Respiratory: Generalized, Diminished, Rales Cardiovascular: Normal : Normal Auscultation: Bowel Sounds: Normal Palpation: Normal Tenderness: Normal Skin: Normal Musculoskeletal: Normal Psychiatric: Normal Mood Description: Calm Affect: Normal Speech Pattern: Artificially Ventilated - Laboratory and Diagnostics Result Diagrams: 08/11/20 04:43 08/11/20 04:43 Labs: 08/07/20 13:40 Urine,Clean Catch Urine Culture - Final 08/02/20 16:20 Neck - Final Staphylococcus Hominis Staphylococcus Epidermidis 07/31/20 11:05 Blood Blood Culture - Final Staphylococcus Hominis 07/31/20 11:00 Blood Blood Culture - Final Staphylococcus Epidermidis 07/22/20 11:53 Blood Blood Culture - Final 07/22/20 12:02 Blood Blood Culture - Final 07/24/20 22:37 Sputum - Endotracheal Wash Sputum Culture - Final 07/24/20 22:37 Sputum - Endotracheal Wash - Final 07/22/20 12:18 Sputum - Expectorated Sputum Sputum Culture - Final 07/22/20 12:18 Sputum - Expectorated Sputum - Final Laboratory WBC 20.4 X10^3/uL (3.6-10.0) H D 08/11/20 04:43 RBC 2.94 X10^6/uL (3.5-5.4) L 08/11/20 04:43 Hgb 9.3 g/dL (12.0-16.0) L 08/11/20 04:43 Hct 28.8 % (36.0-47.0) L 08/11/20 04:43 MCV 98.3 fL (80.0-100.0) 08/11/20 04:43 MCH 31.7 pg (27.0-34.0) 08/11/20 04:43 MCHC 32.3 g/dL (33.0-35.0) L 08/11/20 04:43 RDW 13.3 % (11.6-16.5) 08/11/20 04:43 Plt Count 118 X10^3/uL (150.0-450.0) L 08/11/20 04:43 Plt Count Comment Decreased (ADEQUATE) A 08/11/20 04:43 MPV 9.8 fL (7.4-11.0) 08/11/20 04:43 Neut % (Auto) 95.6 % (42.0-75.0) H 08/11/20 04:43 Lymph % (Auto) 1.8 % (21.0-51.0) L 08/11/20 04:43 [place] % (Auto) 2.5 % (0.0-13.0) 08/11/20 04:43 Eos % (Auto) 0.0 % (0.9-2.9) L 08/11/20 04:43 Baso % (Auto) 0.1 % (0.2-1.0) L 08/11/20 04:43 Neut # (Auto) 19.5 x10^3/uL (2.2-4.8) H 08/11/20 04:43 Lymph # (Auto) 0.4 X10^3/uL (1.3-2.9) L 08/11/20 04:43 [place] # (Auto) 0.5 x10^3/uL (0.3-0.8) 08/11/20 04:43 Eos # (Auto) 0.0 x10^3/uL (0.0-0.2) 08/11/20 04:43 Baso # (Auto) 0.0 X10^3/uL (0.0-0.1) 08/11/20 04:43 Absolute Nucleated RBC 0.0 /100WBC 08/11/20 04:43 Total Counted 100 08/11/20 04:43 Neutrophils % (Manual) 95 % (39-76) H 08/11/20 04:43 Band Neutrophils % 2 % (0-10) 08/11/20 04:43 Lymphocytes % (Manual) 2 % (13-43) L 08/11/20 04:43 Monocytes % (Manual) 1 % (4-9) L 08/11/20 04:43 Plt Morphology Comment Normal (NORMAL) 08/11/20 04:43 RBC Morphology Normal (NORMAL) 08/11/20 04:43 Hypochromasia Slight A 07/29/20 04:13 Macrocytosis 1+ A 07/30/20 04:13 D-Dimer 3.48 ug/ml (0.0-0.57) H* 08/03/20 04:35 Sample Site [place] 08/11/20 04:28 ABG pH 7.240 (7.35-7.45) L 08/11/20 04:28 ABG pCO2 21.0 mmHg (35.0-45.0) L 08/11/20 04:28 ABG pO2 83.0 mmHg (80.0-100.0) 08/11/20 04:28 ABG HCO3 9.0 mmol/L (22-26) L* 08/11/20 04:28 ABG O2 Saturation 94.0 % (90-100) 08/11/20 04:28 ABG Base Excess -16.4 mmol/L (-2.0-2.0) L 08/11/20 04:28 Alex Test Na 08/11/20 04:28 A-a Gradient 176.0 mmHg 08/11/20 04:28 FiO2 40.0 08/11/20 04:28 Blood Gas Comments Marie well-mtf 08/11/20 04:28 Sodium 137 mmol/L (136-145) 08/11/20 04:43 Corrected Sodium 143 mmol/L (136-145) 08/11/20 04:43 Potassium 4.3 mmol/L (3.5-5.1) 08/11/20 04:43 Chloride 105 mmol/L (98-107) 08/11/20 04:43 Carbon Dioxide 9.7 mmol/L (21-32) L* 08/11/20 04:43 BUN 98 mg/dL (7-18) H 08/11/20 04:43 Creatinine 3.65 mg/dL (0.55-1.02) H 08/11/20 04:43 Est GFR (MDRD) Af Amer 16 (>60) L 08/11/20 04:43 Est GFR (MDRD) Non-Af 13 (>60) L 08/11/20 04:43 Glucose 351 mg/dL (65-99) H 08/11/20 04:43 POC Glucose (mg/dL) 288 mg/dL (65-99) H 08/11/20 07:37 Calcium 8.4 mg/dL (8.5-10.1) L 08/11/20 04:43 Corrected Calcium 10.2 mg/dL (8.5-10.1) H 08/11/20 04:43 Magnesium 2.4 mg/dL (1.7-2.9) 07/26/20 04:56 Ferritin 2987 ng/mL (8-252) H 08/04/20 05:35 Total Bilirubin 1.00 mg/dL (0.2-1.0) 08/11/20 04:43 AST 512 Units/L (15-37) H 08/11/20 04:43 ALT 490 Units/L (12-78) H 08/11/20 04:43 Alkaline Phosphatase 130 Units/L (46-116) H 08/11/20 04:43 Creatine Kinase 330 Units/L (26-192) H 07/22/20 11:53 CK-MB (CK-2) 1.6 ng/mL (0-4.0) 07/22/20 11:53 CK/CKMB % Calc 0.5 % (<4) 07/22/20 11:53 Troponin I 0.04 ng/mL (0-1.5) 07/22/20 11:53 C-Reactive Protein 35.60 mg/L (0-3.0) H 08/11/20 04:43 B-Natriuretic Peptide 129 pg/mL (0-79) H 07/22/20 11:53 Total Protein 4.7 g/dL (6.4-8.2) L 08/11/20 04:43 Albumin 1.8 g/dL (3.4-5.0) L 08/11/20 04:43 Globulin 2.9 g/dL (2.5-4.5) 08/11/20 04:43 Prealbumin 13.5 mg/dL (18-35.7) L 07/26/20 04:56 Albumin/Globulin Ratio 0.6 Ratio (1.1-2.1) L 08/11/20 04:43 Specimen Type Catherized urine 07/31/20 11:32 Urine Color Yellow (YELLOW) 07/31/20 11:32 Urine Appearance Hazy (CLEAR) 07/31/20 11:32 Urine pH 5.0 (5.0 - 8.0) 07/31/20 11:32 Ur Specific [place] 1.020 (1.000-1.030) 07/31/20 11:32 Urine Protein 2+ (NEGATIVE) 07/31/20 11:32 Urine Glucose (UA) 4+ (NEGATIVE) 07/31/20 11:32 Urine Ketones 3+ (NEGATIVE) 07/31/20 11:32 Urine Occult Blood 5+ (NEGATIVE) 07/31/20 11:32 Urine Nitrite Negative (NEGATIVE) 07/31/20 11:32 Urine Bilirubin Negative (NEGATIVE) 07/31/20 11:32 Urine Urobilinogen Normal (NORMAL) 07/31/20 11:32 Ur Leukocyte Esterase Negative (NEGATIVE) 07/31/20 11:32 Urine RBC Tntc /HPF (0-3) A 07/31/20 11:32 Urine WBC 3-5 /HPF (0-5) 07/31/20 11:32 Ur Squamous Epith Cells Rare /HPF (NEGATIVE) 07/31/20 11:32 Urine Bacteria Negative /HPF (NEGATIVE) 07/31/20 11:32 Urine Mucus Few /HPF (NEGATIVE) 07/31/20 11:32 Ur Culture Indicated? No/not indicated 07/31/20 11:32 Vancomycin Trough 72.7 ug/mL (15-20) H* 08/09/20 07:47 Random Vancomycin 46.5 ug/mL 08/11/20 04:43 Digoxin < 0.20 ng/mL (0.9-2) L 08/10/20 21:40 SARS CoV-2 RNA Rapid CARMEN Positive (NEGATIVE) A 07/22/20 12:18 Miscellaneous Test Covid 19 08/04/20 15:55 Blood Type O POSITIVE 07/25/20 02:28 - Plan (1) Pneumonia due to 2019 novel coronavirus Status: Acute Plan: 1/2 NS AT 150 ML/HR, ALBUMIN 25% IV DAILY, ZOSYN 4.5G IV TID, SOLU-MEDROL 80MG IV Q8H, ATIVAN 0.5MG BID, PEPCID 20MG IV BID, PROTONIX 40MG IV BID, LOVENOX 80MG SC BID, DUONEBS QID, PULMICORT NEBS BID, THE POTASSIUM AND MAGNESIUM PROTOCOLS, AND DIPROVAN FOR SEDATION, HER HOME MEDICATIONS WERE RESUMED. MECHANICAL VENT (2) Hypoxia Status: Acute (3) Hypothyroidism Status: Chronic Qualifiers: Hypothyroidism type: acquired Qualified Code(s): E03.9 - Hypothyroidism, unspecified
[2020-08-11] MEDS: ALBUMIN HUMAN 25%- 100 ML 200 ML IV SCH (09:13)
[2020-08-11] MEDS: LACRI-LUBE S.O.P. AFFEYE SCH ×2 (09:14→21:40)
[2020-08-11] MEDS: PEPCID 20 MG IV PREMIX* 20 MG/50 ML BAG IV SCH (09:14)
[2020-08-11] MEDS: PROTONIX INJ 40 MG VIAL IVP SCH ×2 (09:16→22:00)
[2020-08-11] MEDS: DOPAMINE IV PREMIX 400 MG/250 ML 400 MG/250 ML BAG IV PRN (09:30)
[2020-08-11] MEDS: TOPROL XL PO SCH (10:40)
[2020-08-11] MEDS: ATIVAN TAB 0.5 MG PO SCH ×2 (10:40→22:00)
[2020-08-11] MEDS: COZAAR PO SCH (10:41)
[2020-08-11] MEDS ORDERED: NS 1/2 1000 ML IV 1,000 ML IV ONE ×4 (10:59→12:29)
[2020-08-11] MEDS: SOLU-Medrol 125 MG VIAL IVP SCH ×2 (12:20→18:00)
--- NOTE | 2020-08-11 13:34 | PCM.PROG ---
Progress Note - Progress Note for Day of Date of Exam: 08/10/20 - Subjective Subjective: WAS ADMITTED FOR TREATMENT OF PNEUMONIA DUE TO COVID-19, RESPIRATORY FAILURE, AND HYPOXIA. SHE WAS PLACED BACK ON THE MECHANICAL VENTILATOR YESTERDAY DUE TO PERSISTENT HYPOXIA AND TACHYPNEA. HER OXYGEN SATURATIONS HAVE BEEN 97-100% THIS MORNING AND THROUGHOUT THE NIGHT. SHE HAS BEEN HYPOTENSIVE THROUGHOUT THE NIGHT. ON EXAMINATION, HEART IS REGULAR IN RATE AND RHYTHM. BILATERAL LUNGS NOTED WITH RALES THROUGHOUT. ABDOMEN IS ROUND, SOFT, AND NON-TENDER WITH NORMAL BOWEL SOUNDS NOTED IN ALL QUADRANTS. HER VITALS THIS MORNING ARE: 97.5-72-98-967-107/57. LABS WERE OBTAINED. ABNORMAL LAB VALUES INCLUDE THE FOLLOWING: WBC RBC 2.58, HGB 8.3, HCT 25.3, PLT COUNT 87, CHLORIDE 111, CARBON DIOXIDE 13.9, BUN 86, CREATININE 3.12, GLUCOSE 269, AST 437, ALT 368, CRP 60.50, TOTAL PROTEIN 3.9, ALBUMIN 1.3. AN ABG WAS OBTAINED THIS MORNING AND REVEALED: PH 7.310, PC02 26, P02 298, HC03 13.1, 02 SAT 100.0, A-A GRADIENT 383, FI02 100.0 REPEAT BLOOD CULTURES ARE POSITIVE FOR STAPHYLOCOCCUS EP IDERMIDIS AND STAPHYLOCOCCUS HOMINUIS. CENTRAL LINE CULTURE IS POSITIVE FOR STAPHYLOCOCCUS EPIDERMIDIS AND STAPHYLOCOCCUS HOMINIS. A CHEST XRAY WAS OBTAINED AND REVEALED: Mild improvement in patchy bilateral airspace opacities may represent improving pneumonia. SHE IS CURRENTLY RECEIVING 1/2NS AT 150ML/HR, ALBUMIN 25% IV DAILY, ZOSYN 2.25G IV TID, SOLU-MEDROL 80MG IV Q8H, DEXAMETHASONE IN NEB TX, ATIVAN 0.5MG IV BID PRN, PEPCID 20MG IV DAILY, PROTONIX 40MG IV BID, LOVENOX 30MG SC DAILY, DUONEBS QID, PULMICORT NEBS BID, A CLONIDINE PATCH, ZOFRAN 8MG IV Q8H PRN,TUSSIONEX 5ML PO Q12H PRN, ENALAPRIL 1.25MG IV Q6H PRN, LABETALOL 10MG IV Q15M PRN, HUMULIN R SLIDING SCALE, COZAAR 100MG PO DAILY, TO PROL XL 200MG PO DAILY, AND THE POTASSIUM AND MAGNESIUM PROTOCOLS. WE WILL DISCONTINUE THE LOVENOX AND START HEPARIN 5,000 UNITS SC TID, INCREASE ALBUMIN TO 2 BAGS DAILY, AND A RENAL DOSE OF DOPAINE. OTHERWISE, WE WILL CONTINUE WITH CURRENT PLAN OF CARE TODAY. OTHERWISE, WE WILL FOLLOW UP WITH AM LABS, CHEST XRAY, ABG, AND CONTINUE TO MONITOR. TIME SPENT ON CLINICAL ASSESSMENT, PHYSICAL EXAMINATION, REVIEWING LABS/IMAGING, DECISION MAKING, AND DOCUMENTATION MORE THAN 75 MINUTES. - Past Medical Family Social History Past Med/Fam/Surg Hx: No changes since H&P Allergies: Allergies codeine Allergy (Verified 07/22/20 11:49) meperidine [From Demerol] Allergy (Verified 07/22/20 11:49) Tetanus Vaccines and Toxoid Allergy (Verified 07/22/20 11:49) - Review of Systems ROS: No change since H&P - Vital Signs and I&O's Vital Signs: Temperature 98.0 F Pulse Rate [Right Brachial] 92 Pulse Rate 67 Respiratory Rate 19 Blood Pressure [Left Radial 114/41 Artery] Blood Pressure [Right Arm] 105/52 Blood Pressure 146/66 O2 Sat by Pulse Oximetry 96 Intake and Output: Intake & Output 08/09/20 08/10/20 08/11/20 08/12/20 11:59 11:59 11:59 11:59 Intake Total 5680 / 5680 4428 / 4428 4864 / 4864 100 / 100 Output Total 850 / 850 120 / 120 70 / 70 Balance 4830 / 4830 4308 / 4308 4794 / 4794 100 / 100 - Physical Exam Oriented: Unable to test Eyes: Normal Ear: Normal Nose: Normal Throat: Normal Respiratory: Generalized, Diminished, Rales Cardiovascular: Normal : Normal Auscultation: Bowel Sounds: Normal Palpation: Normal Tenderness: Normal Skin: Normal Musculoskeletal: Normal Psychiatric: Normal Mood Description: Calm Affect: Normal Speech Pattern: Artificially Ventilated - Laboratory and Diagnostics Result Diagrams: 08/11/20 04:43 08/11/20 04:43 Labs: 08/10/20 16:43 Sputum - Endotracheal Wash Sputum Culture - Preliminary 08/10/20 16:43 Sputum - Endotracheal Wash - Final 08/07/20 13:40 Urine,Clean Catch Urine Culture - Final 08/02/20 16:20 Neck - Final Staphylococcus Hominis Staphylococcus Epidermidis 07/31/20 11:05 Blood Blood Culture - Final Staphylococcus Hominis 07/31/20 11:00 Blood Blood Culture - Final Staphylococcus Epidermidis 07/22/20 11:53 Blood Blood Culture - Final 07/22/20 12:02 Blood Blood Culture - Final 07/24/20 22:37 Sputum - Endotracheal Wash Sputum Culture - Final 07/24/20 22:37 Sputum - Endotracheal Wash - Final 07/22/20 12:18 Sputum - Expectorated Sputum Sputum Culture - Final 07/22/20 12:18 Sputum - Expectorated Sputum - Final Laboratory WBC 20.4 X10^3/uL (3.6-10.0) H D 08/11/20 04:43 RBC 2.94 X10^6/uL (3.5-5.4) L 08/11/20 04:43 Hgb 9.3 g/dL (12.0-16.0) L 08/11/20 04:43 Hct 28.8 % (36.0-47.0) L 08/11/20 04:43 MCV 98.3 fL (80.0-100.0) 08/11/20 04:43 MCH 31.7 pg (27.0-34.0) 08/11/20 04:43 MCHC 32.3 g/dL (33.0-35.0) L 08/11/20 04:43 RDW 13.3 % (11.6-16.5) 08/11/20 04:43 Plt Count 118 X10^3/uL (150.0-450.0) L 08/11/20 04:43 Plt Count Comment Decreased (ADEQUATE) A 08/11/20 04:43 MPV 9.8 fL (7.4-11.0) 08/11/20 04:43 Neut % (Auto) 95.6 % (42.0-75.0) H 08/11/20 04:43 Lymph % (Auto) 1.8 % (21.0-51.0) L 08/11/20 04:43 [place] % (Auto) 2.5 % (0.0-13.0) 08/11/20 04:43 Eos % (Auto) 0.0 % (0.9-2.9) L 08/11/20 04:43 Baso % (Auto) 0.1 % (0.2-1.0) L 08/11/20 04:43 Neut # (Auto) 19.5 x10^3/uL (2.2-4.8) H 08/11/20 04:43 Lymph # (Auto) 0.4 X10^3/uL (1.3-2.9) L 08/11/20 04:43 [place] # (Auto) 0.5 x10^3/uL (0.3-0.8) 08/11/20 04:43 Eos # (Auto) 0.0 x10^3/uL (0.0-0.2) 08/11/20 04:43 Baso # (Auto) 0.0 X10^3/uL (0.0-0.1) 08/11/20 04:43 Absolute Nucleated RBC 0.0 /100WBC 08/11/20 04:43 Total Counted 100 08/11/20 04:43 Neutrophils % (Manual) 95 % (39-76) H 08/11/20 04:43 Band Neutrophils % 2 % (0-10) 08/11/20 04:43 Lymphocytes % (Manual) 2 % (13-43) L 08/11/20 04:43 Monocytes % (Manual) 1 % (4-9) L 08/11/20 04:43 Plt Morphology Comment Normal (NORMAL) 08/11/20 04:43 RBC Morphology Normal (NORMAL) 08/11/20 04:43 Hypochromasia Slight A 07/29/20 04:13 Macrocytosis 1+ A 07/30/20 04:13 D-Dimer 3.48 ug/ml (0.0-0.57) H* 08/03/20 04:35 Sample Site Artline 08/11/20 04:28 ABG pH 7.240 (7.35-7.45) L 08/11/20 04:28 ABG pCO2 21.0 mmHg (35.0-45.0) L 08/11/20 04:28 ABG pO2 83.0 mmHg (80.0-100.0) 08/11/20 04:28 ABG HCO3 9.0 mmol/L (22-26) L* 08/11/20 04:28 ABG O2 Saturation 94.0 % (90-100) 08/11/20 04:28 ABG Base Excess -16.4 mmol/L (-2.0-2.0) L 08/11/20 04:28 Alex Test Na 08/11/20 04:28 A-a Gradient 176.0 mmHg 08/11/20 04:28 FiO2 40.0 08/11/20 04:28 Blood Gas Comments Marie well-mtf 08/11/20 04:28 Sodium 137 mmol/L (136-145) 08/11/20 04:43 Corrected Sodium 143 mmol/L (136-145) 08/11/20 04:43 Potassium 4.3 mmol/L (3.5-5.1) 08/11/20 04:43 Chloride 105 mmol/L (98-107) 08/11/20 04:43 Carbon Dioxide 9.7 mmol/L (21-32) L* 08/11/20 04:43 BUN 98 mg/dL (7-18) H 08/11/20 04:43 Creatinine 3.65 mg/dL (0.55-1.02) H 08/11/20 04:43 Est GFR (MDRD) Af Amer 16 (>60) L 08/11/20 04:43 Est GFR (MDRD) Non-Af 13 (>60) L 08/11/20 04:43 Glucose 351 mg/dL (65-99) H 08/11/20 04:43 POC Glucose (mg/dL) 270 mg/dL (65-99) H 08/11/20 13:27 Calcium 8.4 mg/dL (8.5-10.1) L 08/11/20 04:43 Corrected Calcium 10.2 mg/dL (8.5-10.1) H 08/11/20 04:43 Magnesium 2.4 mg/dL (1.7-2.9) 07/26/20 04:56 Ferritin 2987 ng/mL (8-252) H 08/04/20 05:35 Total Bilirubin 1.00 mg/dL (0.2-1.0) 08/11/20 04:43 AST 512 Units/L (15-37) H 08/11/20 04:43 ALT 490 Units/L (12-78) H 08/11/20 04:43 Alkaline Phosphatase 130 Units/L (46-116) H 08/11/20 04:43 Creatine Kinase 330 Units/L (26-192) H 07/22/20 11:53 CK-MB (CK-2) 1.6 ng/mL (0-4.0) 07/22/20 11:53 CK/CKMB % Calc 0.5 % (<4) 07/22/20 11:53 Troponin I 0.04 ng/mL (0-1.5) 07/22/20 11:53 C-Reactive Protein 35.60 mg/L (0-3.0) H 08/11/20 04:43 B-Natriuretic Peptide 129 pg/mL (0-79) H 07/22/20 11:53 Total Protein 4.7 g/dL (6.4-8.2) L 08/11/20 04:43 Albumin 1.8 g/dL (3.4-5.0) L 08/11/20 04:43 Globulin 2.9 g/dL (2.5-4.5) 08/11/20 04:43 Prealbumin 13.5 mg/dL (18-35.7) L 07/26/20 04:56 Albumin/Globulin Ratio 0.6 Ratio (1.1-2.1) L 08/11/20 04:43 Specimen Type Catherized urine 07/31/20 11:32 Urine Color Yellow (YELLOW) 07/31/20 11:32 Urine Appearance Hazy (CLEAR) 07/31/20 11:32 Urine pH 5.0 (5.0 - 8.0) 07/31/20 11:32 Ur Specific [place] 1.020 (1.000-1.030) 07/31/20 11:32 Urine Protein 2+ (NEGATIVE) 07/31/20 11:32 Urine Glucose (UA) 4+ (NEGATIVE) 07/31/20 11:32 Urine Ketones 3+ (NEGATIVE) 07/31/20 11:32 Urine Occult Blood 5+ (NEGATIVE) 07/31/20 11:32 Urine Nitrite Negative (NEGATIVE) 07/31/20 11:32 Urine Bilirubin Negative (NEGATIVE) 07/31/20 11:32 Urine Urobilinogen Normal (NORMAL) 07/31/20 11:32 Ur Leukocyte Esterase Negative (NEGATIVE) 07/31/20 11:32 Urine RBC Tntc /HPF (0-3) A 07/31/20 11:32 Urine WBC 3-5 /HPF (0-5) 07/31/20 11:32 Ur Squamous Epith Cells Rare /HPF (NEGATIVE) 07/31/20 11:32 Urine Bacteria Negative /HPF (NEGATIVE) 07/31/20 11:32 Urine Mucus Few /HPF (NEGATIVE) 07/31/20 11:32 Ur Culture Indicated? No/not indicated 07/31/20 11:32 Vancomycin Trough 72.7 ug/mL (15-20) H* 08/09/20 07:47 Random Vancomycin 46.5 ug/mL 08/11/20 04:43 Digoxin < 0.20 ng/mL (0.9-2) L 08/10/20 21:40 SARS CoV-2 RNA Rapid CARMEN Positive (NEGATIVE) A 07/22/20 12:18 Miscellaneous Test Covid 19 08/04/20 15:55 Blood Type O POSITIVE 07/25/20 02:28 - Plan (1) Pneumonia due to 2019 novel coronavirus Status: Acute Plan: 1/2 NS AT 150 ML/HR, ALBUMIN 25% IV 2 BAGS DAILY, ZOSYN 4.5G IV TID, SOLU- MEDROL 80MG IV Q8H, ATIVAN 0.5MG BID, PEPCID 20MG IV BID, PROTONIX 40MG IV BID, HEPARIN DRIP, DOPAMINE DRIP, DUONEBS QID, PULMICORT NEBS BID, THE POTASSIUM AND MAGNESIUM PROTOCOLS, AND DIPROVAN FOR SEDATION, HER HOME MEDICATIONS WERE RESUMED. MECHANICAL VENT (2) Hypoxia Status: Acute (3) Hypothyroidism Status: Chronic Qualifiers: Hypothyroidism type: acquired Qualified Code(s): E03.9 - Hypothyroidism, unspecified
[2020-08-11] MEDS ORDERED: SOLU-Medrol 125 MG VIAL IVP SCH (14:00)
[2020-08-11] MEDS: NS 1/2 1000 ML IV 1,000 ML with SODIUM BICARBONATE 8.4% INJ ADULT 100 ML IV SCH ×6 (14:45→22:00)
[2020-08-11] MEDS: MYXREDLIN 100 UNIT/100 ML BAG 100 UNIT/100 ML PLAST..BAG IV PRN (17:57)
--- NOTE | 2020-08-11 20:20 | PCM.PROG ---
Progress Note - Progress Note for Day of Date of Exam: 08/11/20 - Subjective Subjective: WAS ADMITTED FOR TREATMENT OF PNEUMONIA DUE TO COVID-19, RESPIRATORY FAILURE, AND HYPOXIA. SHE REMAINS ON THE MECHANICAL VENT. HER SETTINGS ARE CURRENTLY AT: A/C, VENT RATE 22, TIDAL VOLUME 550, PEEP 10, FI02 40. HER OXYGEN SATURATIONS HAVE BEEN 96-98% THIS MORNING AND THROUGHOUT THE NIGHT. SHE HAS BEEN HYPOTENSIVE THROUGHOUT THE NIGHT. ON EXAMINATION, HEART IS REGULAR IN RATE AND RHYTHM. BILATERAL LUNGS NOTED WITH RALES THROUGHOUT. ABDOMEN IS ROUND, SOFT, AND NON-TENDER WITH NORMAL BOWEL SOUNDS NOTED IN ALL QUADRANTS. HER VITALS THIS MORNING ARE: 98.2-69-23-96%-156/65. LABS WERE OBTAINED. ABNORMAL LAB VALUES INCLUDE THE FOLLOWING: WBC 20.4, RBC 2.94, HGB 9.3, HCT 28.8, PLT CO UNT 118, CARBON DIOXIDE 9.7, BUN 98, CREATININE 3.65, GLUCOSE 351, CALCIUM 8.4, AST 512, ALT 490, ALK PHOS 130, CRP 35.60, TOTAL PROTEIN 4.7, ALBUMIN 1.8. AN ABG WAS OBTAINED THIS MORNING AND REVEALED: PH 7.240, PC02 21, P02 83, HC03 9.0, 02 SAT 94, BASE EXCESS -16.4, A-A GRADIENT 176, FI02 40. SPUTUM CULTURE REVEALS GROWTH OF YEAST. A CHEST XRAY WAS OBTAINED AND REVEALED: 1. Bilateral pneumonia, progressed on the right. SHE IS CURRENTLY RECEIVING 1/2NS AT 150ML/HR, ALBUMIN 25% 2 BAGS IV DAILY, DOPAMINE DRIP, ZOSYN 2.25G IV TID, SOLU- MEDROL 125MG IV Q8H, DEXAMETHASONE IN NEB TX, ATIVAN 0.5MG IV BID PRN, PEPCID 20MG IV DAILY, PROTONIX 40MG IV BID, HEPARIN 5,000 UNITS SC Q8H, DUONEBS QID, PULMICORT NEBS BID, A CLONIDINE PATCH, ZOFRAN 8MG IV Q8H PRN,TUSSIONEX 5ML PO Q12H PRN, ENALAPRIL 1.25MG IV Q6H PRN, LABETALOL 10MG IV Q15M PRN, HUMULIN R SLIDING SCALE, COZAAR 100MG PO DAILY, TOPROL XL 200MG PO DAILY, AND THE POTASSIUM AND MAGNESIUM PROTOCOLS. TODAY, WE WILL BOLUS TWO LITERS OF NS. WE WILL THEN INCREASE HER IV FLUIDS TO 200ML/HR WITH 2 AMPS OF BICARB IN EACH LITER OF IV FLUIDS. OTHERWISE, WE WILL CONTINUE WITH CURRENT PLAN OF CARE TODAY. OTHERWISE, WE WILL FOLLOW UP WITH AM LABS, CHEST XRAY, ABG, AND CONTINUE TO MONITOR. TIME SPENT ON CLINICAL ASSESSMENT, PHYSICAL EXAMINATION, REVIEWING LABS/IMAGING, DECISION MAKING, AND DOCUMENTATION MORE THAN 75 MINUTES. - Past Medical Family Social History Past Med/Fam/Surg Hx: No changes since H&P Allergies: Allergies codeine Allergy (Verified 07/22/20 11:49) meperidine [From Demerol] Allergy (Verified 07/22/20 11:49) Tetanus Vaccines and Toxoid Allergy (Verified 07/22/20 11:49) - Review of Systems ROS: No change since H&P - Vital Signs and I&O's Vital Signs: Temperature 97.7 F Pulse Rate [Right Brachial] 92 Pulse Rate 83 Respiratory Rate 26 Blood Pressure [Left Radial 114/41 Artery] Blood Pressure [Right Arm] 105/52 Blood Pressure 121/55 O2 Sat by Pulse Oximetry 93 Intake and Output: Intake & Output 08/09/20 08/10/20 08/11/20 08/12/20 11:59 11:59 11:59 11:59 Intake Total 5680 / 5680 4428 / 4428 4864 / 4864 3080 / 3080 Output Total 850 / 850 120 / 120 70 / 70 / 20 Balance 4830 / 4830 4308 / 4308 4794 / 4794 3060 / 3060 - Physical Exam Oriented: Unable to test Eyes: Normal Ear: Normal Nose: Normal Throat: Normal Respiratory: Generalized, Diminished, Rales Cardiovascular: Normal : Normal Auscultation: Bowel Sounds: Normal Palpation: Normal Tenderness: Normal Skin: Normal Musculoskeletal: Normal Psychiatric: Normal Mood Description: Calm Affect: Normal Speech Pattern: Artificially Ventilated - Laboratory and Diagnostics Result Diagrams: 08/11/20 04:43 08/11/20 04:43 Labs: 08/10/20 16:43 Sputum - Endotracheal Wash Sputum Culture - Preliminary 08/10/20 16:43 Sputum - Endotracheal Wash - Final 08/07/20 13:40 Urine,Clean Catch Urine Culture - Final 08/02/20 16:20 Neck - Final Staphylococcus Hominis Staphylococcus Epidermidis 07/31/20 11:05 Blood Blood Culture - Final Staphylococcus Hominis 07/31/20 11:00 Blood Blood Culture - Final Staphylococcus Epidermidis 07/22/20 11:53 Blood Blood Culture - Final 07/22/20 12:02 Blood Blood Culture - Final 07/24/20 22:37 Sputum - Endotracheal Wash Sputum Culture - Final 07/24/20 22:37 Sputum - Endotracheal Wash - Final 07/22/20 12:18 Sputum - Expectorated Sputum Sputum Culture - Final 07/22/20 12:18 Sputum - Expectorated Sputum - Final Laboratory WBC 20.4 X10^3/uL (3.6-10.0) H D 08/11/20 04:43 RBC 2.94 X10^6/uL (3.5-5.4) L 08/11/20 04:43 Hgb 9.3 g/dL (12.0-16.0) L 08/11/20 04:43 Hct 28.8 % (36.0-47.0) L 08/11/20 04:43 MCV 98.3 fL (80.0-100.0) 08/11/20 04:43 MCH 31.7 pg (27.0-34.0) 08/11/20 04:43 MCHC 32.3 g/dL (33.0-35.0) L 08/11/20 04:43 RDW 13.3 % (11.6-16.5) 08/11/20 04:43 Plt Count 118 X10^3/uL (150.0-450.0) L 08/11/20 04:43 Plt Count Comment Decreased (ADEQUATE) A 08/11/20 04:43 MPV 9.8 fL (7.4-11.0) 08/11/20 04:43 Neut % (Auto) 95.6 % (42.0-75.0) H 08/11/20 04:43 Lymph % (Auto) 1.8 % (21.0-51.0) L 08/11/20 04:43 [place] % (Auto) 2.5 % (0.0-13.0) 08/11/20 04:43 Eos % (Auto) 0.0 % (0.9-2.9) L 08/11/20 04:43 Baso % (Auto) 0.1 % (0.2-1.0) L 08/11/20 04:43 Neut # (Auto) 19.5 x10^3/uL (2.2-4.8) H 08/11/20 04:43 Lymph # (Auto) 0.4 X10^3/uL (1.3-2.9) L 08/11/20 04:43 [place] # (Auto) 0.5 x10^3/uL (0.3-0.8) 08/11/20 04:43 Eos # (Auto) 0.0 x10^3/uL (0.0-0.2) 08/11/20 04:43 Baso # (Auto) 0.0 X10^3/uL (0.0-0.1) 08/11/20 04:43 Absolute Nucleated RBC 0.0 /100WBC 08/11/20 04:43 Total Counted 100 08/11/20 04:43 Neutrophils % (Manual) 95 % (39-76) H 08/11/20 04:43 Band Neutrophils % 2 % (0-10) 08/11/20 04:43 Lymphocytes % (Manual) 2 % (13-43) L 08/11/20 04:43 Monocytes % (Manual) 1 % (4-9) L 08/11/20 04:43 Plt Morphology Comment Normal (NORMAL) 08/11/20 04:43 RBC Morphology Normal (NORMAL) 08/11/20 04:43 Hypochromasia Slight A 07/29/20 04:13 Macrocytosis 1+ A 07/30/20 04:13 D-Dimer 3.48 ug/ml (0.0-0.57) H* 08/03/20 04:35 Sample Site Artline 08/11/20 04:28 ABG pH 7.240 (7.35-7.45) L 08/11/20 04:28 ABG pCO2 21.0 mmHg (35.0-45.0) L 08/11/20 04:28 ABG pO2 83.0 mmHg (80.0-100.0) 08/11/20 04:28 ABG HCO3 9.0 mmol/L (22-26) L* 08/11/20 04:28 ABG O2 Saturation 94.0 % (90-100) 08/11/20 04:28 ABG Base Excess -16.4 mmol/L (-2.0-2.0) L 08/11/20 04:28 Alex Test Na 08/11/20 04:28 A-a Gradient 176.0 mmHg 08/11/20 04:28 FiO2 40.0 08/11/20 04:28 Blood Gas Comments Marie well-mtf 08/11/20 04:28 Sodium 137 mmol/L (136-145) 08/11/20 04:43 Corrected Sodium 143 mmol/L (136-145) 08/11/20 04:43 Potassium 4.3 mmol/L (3.5-5.1) 08/11/20 04:43 Chloride 105 mmol/L (98-107) 08/11/20 04:43 Carbon Dioxide 9.7 mmol/L (21-32) L* 08/11/20 04:43 BUN 98 mg/dL (7-18) H 08/11/20 04:43 Creatinine 3.65 mg/dL (0.55-1.02) H 08/11/20 04:43 Est GFR (MDRD) Af Amer 16 (>60) L 08/11/20 04:43 Est GFR (MDRD) Non-Af 13 (>60) L 08/11/20 04:43 Glucose 351 mg/dL (65-99) H 08/11/20 04:43 POC Glucose (mg/dL) 269 mg/dL (65-99) H 08/11/20 20:12 Calcium 8.4 mg/dL (8.5-10.1) L 08/11/20 04:43 Corrected Calcium 10.2 mg/dL (8.5-10.1) H 08/11/20 04:43 Magnesium 2.4 mg/dL (1.7-2.9) 07/26/20 04:56 Ferritin 2987 ng/mL (8-252) H 08/04/20 05:35 Total Bilirubin 1.00 mg/dL (0.2-1.0) 08/11/20 04:43 AST 512 Units/L (15-37) H 08/11/20 04:43 ALT 490 Units/L (12-78) H 08/11/20 04:43 Alkaline Phosphatase 130 Units/L (46-116) H 08/11/20 04:43 Creatine Kinase 330 Units/L (26-192) H 07/22/20 11:53 CK-MB (CK-2) 1.6 ng/mL (0-4.0) 07/22/20 11:53 CK/CKMB % Calc 0.5 % (<4) 07/22/20 11:53 Troponin I 0.04 ng/mL (0-1.5) 07/22/20 11:53 C-Reactive Protein 35.60 mg/L (0-3.0) H 08/11/20 04:43 B-Natriuretic Peptide 129 pg/mL (0-79) H 07/22/20 11:53 Total Protein 4.7 g/dL (6.4-8.2) L 08/11/20 04:43 Albumin 1.8 g/dL (3.4-5.0) L 08/11/20 04:43 Globulin 2.9 g/dL (2.5-4.5) 08/11/20 04:43 Prealbumin 13.5 mg/dL (18-35.7) L 07/26/20 04:56 Albumin/Globulin Ratio 0.6 Ratio (1.1-2.1) L 08/11/20 04:43 Specimen Type Catherized urine 07/31/20 11:32 Urine Color Yellow (YELLOW) 07/31/20 11:32 Urine Appearance Hazy (CLEAR) 07/31/20 11:32 Urine pH 5.0 (5.0 - 8.0) 07/31/20 11:32 Ur Specific [place] 1.020 (1.000-1.030) 07/31/20 11:32 Urine Protein 2+ (NEGATIVE) 07/31/20 11:32 Urine Glucose (UA) 4+ (NEGATIVE) 07/31/20 11:32 Urine Ketones 3+ (NEGATIVE) 07/31/20 11:32 Urine Occult Blood 5+ (NEGATIVE) 07/31/20 11:32 Urine Nitrite Negative (NEGATIVE) 07/31/20 11:32 Urine Bilirubin Negative (NEGATIVE) 07/31/20 11:32 Urine Urobilinogen Normal (NORMAL) 07/31/20 11:32 Ur Leukocyte Esterase Negative (NEGATIVE) 07/31/20 11:32 Urine RBC Tntc /HPF (0-3) A 07/31/20 11:32 Urine WBC 3-5 /HPF (0-5) 07/31/20 11:32 Ur Squamous Epith Cells Rare /HPF (NEGATIVE) 07/31/20 11:32 Urine Bacteria Negative /HPF (NEGATIVE) 07/31/20 11:32 Urine Mucus Few /HPF (NEGATIVE) 07/31/20 11:32 Ur Culture Indicated? No/not indicated 07/31/20 11:32 Vancomycin Trough 72.7 ug/mL (15-20) H* 08/09/20 07:47 Random Vancomycin 46.5 ug/mL 08/11/20 04:43 Digoxin < 0.20 ng/mL (0.9-2) L 08/10/20 21:40 SARS CoV-2 RNA Rapid CARMEN Positive (NEGATIVE) A 07/22/20 12:18 Miscellaneous Test Covid 19 08/04/20 15:55 Blood Type O POSITIVE 07/25/20 02:28 - Plan (1) Pneumonia due to 2019 novel coronavirus Status: Acute Plan: 1/2 NS AT 200 ML/HR WITH 2 AMPS BICARB IN EACH LITER, ALBUMIN 25% IV 2 BAGS DAILY, ZOSYN 4.5G IV TID, SOLU-MEDROL 125MG IV Q8H, ATIVAN 0.5MG BID, PEPCID 20MG IV BID, PROTONIX 40MG IV BID, HEPARIN DRIP, DOPAMINE DRIP, DUONEBS QID, PULMICORT NEBS BID, THE POTASSIUM AND MAGNESIUM PROTOCOLS, AND DIPROVAN FOR SEDATION, HER HOME MEDICATIONS WERE RESUMED. MECHANICAL VENT (2) Hypoxia Status: Acute (3) Hypothyroidism Status: Chronic Qualifiers: Hypothyroidism type: acquired Qualified Code(s): E03.9 - Hypothyroidism, unspecified
[2020-08-11] MEDS ORDERED: DIFLUCAN 100 MG IV (MIX by PHARMACY)* 100 MG/50 ML BAG IV SCH (21:00)
[2020-08-11] MEDS: SNACK - Diabetic Appropriate PO SCH (21:43)
[2020-08-12] MEDS: SOLU-Medrol 125 MG VIAL IVP SCH ×3 (01:00→12:30)
[2020-08-12] MEDS: HEPARIN SODIUM INJ 5000 UNITS SC SCH ×2 (01:00→09:14)
[2020-08-12] MEDS: NS 1/2 1000 ML IV 1,000 ML with SODIUM BICARBONATE 8.4% INJ ADULT 100 ML IV SCH ×4 (02:13→13:16)
[2020-08-12] MEDS ORDERED: NS 100 ML IV 100 ML IV ONE (04:04)
[2020-08-12] MEDS ORDERED: VERSED ONE (04:12)
[2020-08-12] MEDS: CARDIZEM INJ 125 MG VIAL 125 MG in NS 100 ML IV 100 ML IV PRN (04:32)
[2020-08-12] MEDS: VERSED 100 MG in NS 100 ML IV 80 ML IV PRN (04:33)
[2020-08-12 05:35] LABS: ABG BASE EXCESS -14.1 mmol/L (-2.0-2.0)
[2020-08-12] MEDS: NS IV SCH (05:45)
[2020-08-12] MEDS: SPIKE MINIBAG IV SCH (05:45)
[2020-08-12] MEDS: ZOSYN IV SCH (05:45)
[2020-08-12 06:15] LABS: BASOPHILS % (AUTO) 0 % (0.2-1.0); HEMATOCRIT 22.8 % (36.0-47.0); HEMOGLOBIN 7.7 g/dL (12.0-16.0); LYMPHOCYTES # (AUTO) 0.4 X10^3/uL (1.3-2.9); LYMPHOCYTES % (AUTO) 2.2 % (21.0-51.0); MEAN CORPUSCULAR HEMOGLOBIN 32.4 pg (27.0-34.0); MEAN CORPUSCULAR HGB CONC 33.8 g/dL (33.0-35.0); MEAN CORPUSCULAR VOLUME 95.7 fL (80.0-100.0); MEAN PLATELET VOLUME 10.2 fL (7.4-11.0); MONOCYTES # (AUTO) 0.5 x10^3/uL (0.3-0.8); MONOCYTES % (AUTO) 2.6 % (0.0-13.0); NEUTROPHILS # (AUTO) 17.5 x10^3/uL (2.2-4.8); NEUTROPHILS % (AUTO) 95.2 % (42.0-75.0); PLATELET COUNT 101 X10^3/uL (150.0-450.0); RED BLOOD COUNT 2.39 X10^6/uL (3.5-5.4); RED CELL DISTRIBUTION WIDTH 13.2 % (11.6-16.5); WHITE BLOOD COUNT 18.4 X10^3/uL (3.6-10.0)
[2020-08-12 06:29] LABS: ALBUMIN 2.2 g/dL (3.4-5.0); CALCIUM 8.2 mg/dL (8.5-10.1); COR CA(FOR HYPOALB) 9.6 mg/dL (8.5-10.1); CREATININE 3.91 mg/dL (0.55-1.02); TOTAL PROTEIN 4.4 g/dL (6.4-8.2)
[2020-08-12 06:32] LABS: CARBON DIOXIDE 12.2 mmol/L (21-32)
[2020-08-12] MEDS: DOPAMINE IV PREMIX 400 MG/250 ML 400 MG/250 ML BAG IV PRN (06:36)
[2020-08-12] MEDS: DIPRIVAN PREMIX 1 GRAM IV 1,000 MG/100 ML VIAL IV PRN (06:37)
--- NOTE | 2020-08-12 06:46 | RAD ---
HISTORYSOBSTUDYCHEST, 1 VIEWCOMPARISONOne day prior.TECHNIQUEAP view of the chestFINDINGSET tube in good position.Cardiac and mediastinal contours are within normal limits. Patient is rotated. Worsened appearance of left and improved appearance of right lung airspace disease. No definite pleural effusion or pneumothorax.IMPRESSIONWorsened appearance of left and improved appearance of right lung airspace disease. This may represent shifting pulmonary edema or pneumonia.Electronically signed by: Bipin Moore (Aug 12, 2020 06:44:41)
[2020-08-12 07:03] LABS: PLATELET MORPHOLOGY COMMENT NORMAL (NORMAL)
[2020-08-12 07:04] LABS: CRENATED RBC SLIGHT
[2020-08-12] MEDS ORDERED: DIFLUCAN 100 MG IV (MIX by PHARMACY)* 100 MG/50 ML BAG IV SCH (09:00)
[2020-08-12] MEDS: PEPCID 20 MG IV PREMIX* 20 MG/50 ML BAG IV SCH (09:04)
[2020-08-12] MEDS: PROTONIX INJ 40 MG VIAL IVP SCH (09:12)
[2020-08-12] MEDS: PULMICORT NEB TX 0.5 MG NEB SCH (09:40)
[2020-08-12] MEDS: DUONEB 0.5 MG/3 MG (3 mL) NEB SCH ×2 (09:40→13:44)
[2020-08-12] MEDS: MUCOMYST 20% 200 MG/ML NEB SCH (09:40)
[2020-08-12] MEDS: DECADRON JET NEB (RESP USE) NEB SCH (09:40)
[2020-08-12] MEDS: ALBUMIN HUMAN 25%- 100 ML 200 ML IV SCH (09:43)
[2020-08-12] MEDS: ATIVAN TAB 0.5 MG PO SCH (09:45)
[2020-08-12] MEDS: COZAAR PO SCH (09:46)
[2020-08-12] MEDS: LACRI-LUBE S.O.P. AFFEYE SCH (09:51)
[2020-08-12] MEDS: TOPROL XL PO SCH (09:52)
[2020-08-12] MEDS: MYXREDLIN 100 UNIT/100 ML BAG 100 UNIT/100 ML PLAST..BAG IV PRN (15:40)
[2020-08-12 16:57] VITALS: BP 116/57
== END 2020-08-12 16:15 | disposition short-term general hospital (02) | DRG 207 ==
LOC: MED/SURG → ICU 07-23 16:11
PROVIDERS: ADMIT Internal Medicine; ATTEND Internal Medicine
DX: J12.81 Pneumonia due to SARS-associated coronavirus; E03.9 Hypothyroidism, unspecified; R13.10 Dysphagia, unspecified; I87.2 Venous insufficiency (chronic) (peripheral); D64.89 Other specified anemias; I50.9 Heart failure, unspecified; J80 Acute respiratory distress syndrome; Z78.1 Physical restraint status; I10 Essential (primary) hypertension; Z99.11 Dependence on respirator [ventilator] status; E11.65 Type 2 diabetes mellitus with hyperglycemia; U07.1 COVID-19